=== PATIENT | female | born 1995 | race Caucasian/White ===

== ENCOUNTER 2017-04-18 09:52 | Emergency (ER) | payer OTHER, SELFPAY ==
[2017-04-18 09:53] VITALS: BP 156/79; PULSE 106; RESP 15; TEMP 36.3; O2SAT 97; BMI 36.3
[2017-04-18] MEDS: Ondansetron 4 MG/2 ML Vial IV (10:48)
[2017-04-18] MEDS: 0.9% Normal Saline 1,000 ML 1000 ML IV (10:48)
[2017-04-18 10:51] LABS: Absolute Lymphocyte Count 1.21 X10^3/ul (0.83-4.51); Absolute Neutrophil Count 6.5 X10^3/uL (2.0-7.7); Basophil# 0.01 X10^3/uL; Basophil% 0.1 % (0-1); Eosinophil# 0.02 X10^3/uL; Eosinophils% 0.2 % (0-5); Hematocrit 38.1 % (37-47); Hemoglobin 12.8 g/dl (12.0-15.0); Lymphocyte # 1.21 X10^3/ul (4.0); Lymphocyte % 14.6 % (19-41); Mean Corp Hgb Conc 33.6 g/gl (32-36); Mean Corpuscular Volume 86.4 fL (81-99); Mean Platelet Vol. 9.7 fl (6.2-12.0); Monocyte# 0.55 X10^3/uL; Monocyte% 6.7 % (0-10); Neutrophil # 6.45 X10^3/uL (2.7-7.7); Neutrophil % 78.2 % (47-70); POSITIVE COUNT NO; POSITIVE DIFFERENTIAL NO; POSITIVE MORPHOLOGY NO; Platelet Count 221 K/mm3 (150-450); RBC Distribution Width CV 12.9 % (11.6-14.6); RBC Distribution Width SD 40.9 fl (35.1-43.9); Red Blood Count 4.41 M/mm3 (4.2-5.4); White Blood Count 8.3 K/mm3 (4.4-11.0)
[2017-04-18 11:02] LABS: Anion Gap 9 (5-15); BUN 8 mg/dL (7-18); BUN/Creat Ratio 17.9 RATIO (10-20); Calcium,Total 8.2 mg/dL (8.5-10.1); Chloride 109 mmol/L (98-107); Creatinine, Serum 0.45 mg/dL (0.55-1.02); EST Glomerular Filtration Rate 185 mL/min (>60); Est Glom Filt Rate - Afr Amer 224 mL/min (>60); Estimated Creatinine Clearance 190.69 ml/min; Glucose 82 mg/dL (70-110); Potassium 3.6 mmol/L (3.5-5.1); Sodium Level 140 mmol/L (136-145)
[2017-04-18 12:46] LABS: Mucous, Urine 0 SEEN /hpf (<or=2+); Red Blood Cells-Urine 0 SEEN /hpf (0-5)
[2017-04-18 12:53] LABS: Color, Urine Yellow (Yellow); Glucose, Dipstick Normal (Normal); Leukocyte Esterase-Dipstick 25 /ul (Negative); Nitrite-Dipstick Negative (Negative); Occult Blood-Urine Negative /ul (Negative); Protein-Dipstick Negative (Negative); Specific Gravity, Urine 1.015 (1.002-1.030); Urine Bilirubin Dipstick Negative (Negative); Urine Clarity Sl. Cloudy (Clear); Urine Urobilinogen Normal (Normal)
[2017-04-18 12:55] LABS: Ketone-Dipstick 150 mg/dl (Negative)
[2017-04-18 12:58] LABS: Bacteria 1+ /hpf (None Seen); Squamous Epithelial Cells - UA 0-5 SEEN /hpf (5-10); White Blood Cells 0-5 SEEN /hpf (0-5)
[2017-04-18] MEDS: 0.9% Normal Saline 1,000 ML 999 ML IV (13:00)
--- NOTE | 2017-04-18 13:19 | ED.VISSUMM ---
- ER Visit Summary Date of Service: 04/18/17 Chief Complaint: Vomiting and diarrhea History of Present Illness: The patient is a 21 F [facility] and does not have a primary care physician. She is a 20 weeks . She reports that she has vomiting and diarrhea that began 2 days ago. She has vomited a total of 7 times without blood. She has had 9 episodes of diarrhea without blood. She has cramping diffuse abdominal pain is 510 at worst and she is pain-free currently. It is worsened by water and relieved by vomiting. She denies any dysuria or frequency. Patient denies sick contacts. Has not been camping out of the country. No possible bad food exposure. Does not drink well water. On amoxicillin approximate 1 month ago for a sinus infection. Physical Examination: Vitals: Stable. Afebrile. General: Well-nourished and well-developed. Head: Normocephalic atraumatic. Neck: Supple, no lymphadenopathy. No JVD. Nontender. Cardiovascular: Regular rate and rhythm. No murmurs. Respiratory: No respiratory distress. Clear to auscultation bilaterally. Abdominal: Soft, nontender, nondistended, normal bowel sounds. No guarding, rebound, or peritoneal signs. Back: Nontender. Extremities: Nontender, no edema. Skin: Normal color, no rash. Neurologic: Alert and oriented ?3. Cranial nerves II through XII are intact. Normal strength and sensation. Psych: Normal affect. Test Results: CBC is marked for segment neutrophils 70 lymphocytes of 15. Chem-7 is more for chloride 109, calcium 8.2, creatinine 0.45. UA is negative. Emergency Department Course and Treatment: heart tones were 155. Patient was treated Zofran IV. She has had no further vomiting or diarrhea while here. She was unable to give a stool sample. Treatment Plan: She will be discharged with Zofran. Instructed from Dr. Cox in 1 to days if not improving. Return to the emergency department for any worsening symptoms. Disposition: To home in improved and stable condition. Impression: 1. Vomiting/diarrhea. 2. Second trimester . This note was generated with [employer] software. It may contain incorrect words, spelling, and punctuation that were not noted in review of the chart prior to signing ED Disposition - Plan for ED Patient: Disposition: Home or Assisted Living Chief Complaint: Diarrhea Instructions: ED Vomiting Diarrhea Nonspecific Ad Prescriptions: Ondansetron [Zofran Odt] 4 mg PO Q8H PRN PRN #10 tablet PRN Reason: Nausea Referrals: Ulises Melgoza MD [STAFF PHYSICIAN] - 1-2 Days if not improving
[2017-04-18 13:52] VITALS: BP 148/86
== END 2017-04-18 13:54 | disposition home or self-care (01) ==
PROVIDERS: Emergency Provider Emergency Medicine
DX: O21.2 Late vomiting of pregnancy (principal); O26.892 Other specified pregnancy related conditions, second trimester; R10.84 Generalized abdominal pain; R19.7 Diarrhea, unspecified; R51 Headache; Z3A.20 20 weeks gestation of pregnancy
CPT/HCPCS: 36415; 80048; 81001; 85025; 96361; 96374; 99283; J7050; A4216; J2405

== ENCOUNTER 2017-06-04 04:35 | Outpatient (CLI) | payer OTHER, SELFPAY ==
[2017-06-04 04:55] VITALS: BMI 38.7
--- NOTE | 2017-06-06 12:40 | OB.TRI.HP_ITS ---
History of Present Illness Date of Service: 06/04/17 Was patient seen by the physician?: No Reason For Visit: R/O LABOR Date of Service: 06/04/17 Final PACO: 09/04/17 Gestational age: 27 Weeks and 1 Days History of Present Illness: Patient presents to triage @ 27.1 wks reporting irregular uterine-like cramping a few times an hour. Denies vaginal bleeding, denies vaginal discharge. Reports +FM. Patient concerned she may be in PTL. Home Medications Medication Instructions Recorded Ondansetron [Zofran Odt] 4 mg PO Q8H PRN PRN #10 tablet 04/18/17 Vits [Prenatabs FA] 1 tablet PO DAILY 04/18/17 Allergies No Known Allergies Allergy (Verified 04/18/17 09:56) - Pertinent Past Medical History Pertinent Past Medical History: Exercise Induced Asthma - no inhaler use is > 2 years History of Anxiety Physical Exam Vitals: See Nursing note and Exam NST - FHR Rate Baby A Baseline: 140 Variability:: Moderate Accelerations:: 10 x 10 Decelerations:: None NST Reactive:: Yes, Appropriate for gestational age FHR Category:: Category I Uterine Activity:: No contractions noted on tocometer Impression/Plan A: 21 y/o @ 27.1 weeks, False Labor, Otero Campuzano Contractions, Category I FHT P: 1) Discharge patient to home with PTL precautions 2) Patient to f/u at [facility] as scheduled. Echo Pleitez CNM
== END 2017-06-04 05:35 | disposition home or self-care (01) ==
LOC: WPOUT 04:41 → WP 04:41
PROVIDERS: Visit Provider Obstetrics & Gynecology
DX: O47.02 False labor before 37 completed weeks of gestation, second trimester (principal); Z3A.27 27 weeks gestation of pregnancy; O99.342 Other mental disorders complicating pregnancy, second trimester; F41.9 Anxiety disorder, unspecified; J45.990 Exercise induced bronchospasm
CPT/HCPCS: 59050; 99218; G0378

== ENCOUNTER 2017-08-19 11:02 | Outpatient (CLI) | payer OTHER, SELFPAY ==
--- NOTE | 2017-08-19 11:02 | DT_ITS ---
This patient was seen during an EMR downtime August 19, 2017 - August 26, 2017. This patient may have a combination of paper and electronic documentation or all paper documentation. All documentation is viewable within the e-chart portion of [employer] for each patient visit.
== END 2017-08-19 14:10 | disposition home or self-care (01) ==
LOC: WPOUT 08-21 08:04
PROVIDERS: Visit Provider Obstetrics & Gynecology
DX: Z34.03 Encounter for supervision of normal first pregnancy, third trimester (principal); Z3A.37 37 weeks gestation of pregnancy; R03.0 Elevated blood-pressure reading, without diagnosis of hypertension
CPT/HCPCS: 36415; 59025; 59050; 99218; G0378

== ENCOUNTER 2017-08-21 10:50 | Inpatient (IN) | payer BC, OTHER, SELFPAY ==
--- NOTE | 2017-08-21 10:50 | DT_ITS ---
This patient was seen during an EMR downtime August 19, 2017 - August 26, 2017. This patient may have a combination of paper and electronic documentation or all paper documentation. All documentation is viewable within the e-chart portion of [employer] for each patient visit.
[2017-08-22 11:37] LABS: ALB/GLOB Ratio 0.5 RATIO (0.9-2.4); AST(SGOT) 19 U/L (15-37); Albumin, Serum 2.4 g/dL (3.2-5.0); BUN 10 mg/dL (7-18); BUN/Creat Ratio 13.2 RATIO (10-20); Calcium,Total 8.7 mg/dL (8.5-10.1); Creatinine, Serum 0.76 mg/dL (0.55-1.02); EST Glomerular Filtration Rate 100 mL/min (>60); Est Glom Filt Rate - Afr Amer 121 mL/min (>60); Globulin 4.4 g/dL (2.2-4.2); Glucose 81 mg/dL (74-106); Protein, Total 6.8 g/dL (6.4-8.2)
[2017-08-22 11:38] LABS: Alanine Aminotransfer ALT/SGPT 16 U/L (13-56); Alkaline Phosphatase 193 U/L (45-117); Anion Gap 9 (5-15); Chloride 110 mmol/L (98-107); Potassium 3.5 mmol/L (3.5-5.1); Protein, Urine (Random) 11.4 mg/dL (<11.9); Protein:Creat Ratio 140 mg/g CRE (0-200); Sodium Level 139 mmol/L (136-145)
[2017-08-22 16:17] LABS: Absolute Lymphocyte Count 2.46 X10^3/ul (0.83-4.51); Absolute Neutrophil Count 7.8 X10^3/uL (2.0-7.7); Basophil# 0.02 X10^3/uL; Basophil% 0.2 % (0-1); Eosinophil# 0.11 X10^3/uL; Hematocrit 36.6 % (37-47); Hemoglobin 12.4 g/dl (12.0-15.0); Lymphocyte # 2.46 X10^3/ul (4.0); Lymphocyte % 21.6 % (19-41); Mean Corp Hgb Conc 33.9 g/gl (32-36); Mean Corpuscular Hgb 29.8 pg (27.0-32.0); Mean Platelet Vol. 11.9 fl (6.2-12.0); Monocyte# 1.06 X10^3/uL; Monocyte% 9.3 % (0-10); Neutrophil # 7.76 X10^3/uL (2.7-7.7); Neutrophil % 67.9 % (47-70); POSITIVE COUNT NO; POSITIVE DIFFERENTIAL NO; POSITIVE MORPHOLOGY NO; Platelet Count 225 K/mm3 (150-450); RBC Distribution Width CV 12.7 % (11.6-14.6); RBC Distribution Width SD 39.9 fl (35.1-43.9); Red Blood Count 4.16 M/mm3 (4.2-5.4); White Blood Count 11.4 K/mm3 (4.4-11.0)
[2017-08-22 17:47] LABS: International Normalized Ratio 0.9; Partial Thromboplast Time 24.8 Seconds (24.1-36.2); Prothrombin Time (Protime)PT. 12.5 SECONDS (11.7-14.9)
--- NOTE | 2017-08-22 23:30 | PLAC_PTH ---
PATIENT: GALO DUMONT LOC: [facility] U#:[id number] AGE/SX: 22/F ROOM: WP019 RE08/21/[address]: Dr. Amie Holly MD : [id number] BED: 1 DIS: 08/24/2017 SPEC #: [id number] RECD: 08/23/17 00:53 STATUS: ДМИТРИЙ DEANDRE #: [id number] ALIA: 08/22/17 23:[address]: Amie Holly DEPT: SURGICAL PATHOLOGY RECD BY: Jose Orozco ENTERED: 08/23/17 04:34 SP TYPE: PLACENTA OTHR DR: No Primary Care Phys Tissues: Placenta, NOS Procedures: Surgery Specimen Level V HEADER OPERATION: Not noted PRE-OP DIAGNOSIS: Possible chorio TISSUE SUBMITTED: Placenta MICROSCOPIC DIAGNOSIS Placenta: Placental disc - third trimester placenta (459 gm). Membranes - no pathologic diagnosis. Umbilical cord - three blood vessels and no pathologic diagnosis. SJ:jaron 08/26/17 MICROSCOPIC DESCRIPTION Slides are reviewed. GROSS DESCRIPTION SPECIMEN: PLACENTA / CLINICAL INFORMATION: A. Weight: Unavailable B. Gestational Age: Unavailable C. Sex: Male PLACENTAL WEIGHT (POST FIXATION): 459 gm PLACENTAL DIMENSIONS: 19 x 15 x 2.8 cm PLACENTAL SHAPE: Usual ovoid PLACENTAL WEIGHT FOR GESTATIONAL AGE: Within 10-99th percentile MEMBRANES - Present A. Insertion: Marginal B. Site of rupture from edge: 4 cm from edge of placental disc C. Color of membrane: Rome-ann D. Abnormalities: None UMBILICAL CORD - Present A. Color: Rome-ann B. Insertion: Paracentral C. Length: 50 cm D. Diameter: 1.2 cm E. Number of vessels: Three F. Abnormalities: A few false knots are noted. PLACENTAL DISC - Present A. Color of surface: Rome-ann B. surface abnormalities: None C. Maternal cotyledons: Intact with minimal tears D. Attached retro placental clot: No clot E. Cut surface: Dark red and spongy F. Lesions: None G. Separate clot: Absent SECTIONS SUBMITTED: 1. Membrane roll 2. Cord, maternal end 3. Cord, end 4. Placental disc, and maternal surfaces 5. Placental disc, and maternal surfaces 6. Placental disc, and maternal surfaces SJ:jaron 08/23/17 TC:4 CPT: 96222
[2017-08-24 09:25] LABS: BUN 10 mg/dL (7-18); BUN/Creat Ratio 14.1 RATIO (10-20); Creatinine, Serum 0.71 mg/dL (0.55-1.02); EST Glomerular Filtration Rate 108 mL/min (>60); Est Glom Filt Rate - Afr Amer 131 mL/min (>60); Glucose 77 mg/dL (74-106); Protein, Total 6.5 g/dL (6.4-8.2)
[2017-08-24 09:26] LABS: ALB/GLOB Ratio 0.5 RATIO (0.9-2.4); AST(SGOT) 17 U/L (15-37); Alanine Aminotransfer ALT/SGPT 14 U/L (13-56); Albumin, Serum 2.3 g/dL (3.2-5.0); Alkaline Phosphatase 189 U/L (45-117); Anion Gap 10 (5-15); Calcium,Total 8.5 mg/dL (8.5-10.1); Chloride 111 mmol/L (98-107); Globulin 4.2 g/dL (2.2-4.2); Potassium 3.8 mmol/L (3.5-5.1); Sodium Level 142 mmol/L (136-145)
[2017-08-24 09:42] LABS: Hematocrit 35.7 % (37-47); Hemoglobin 11.9 g/dl (12.0-15.0); Mean Corp Hgb Conc 33.3 g/gl (32-36); Mean Corpuscular Hgb 29.5 pg (27.0-32.0); Mean Corpuscular Volume 88.4 fL (81-99); Mean Platelet Vol. 11.5 fl (6.2-12.0); Platelet Count 227 K/mm3 (150-450); RBC Distribution Width CV 12.6 % (11.6-14.6); RBC Distribution Width SD 39.8 fl (35.1-43.9); Red Blood Count 4.04 M/mm3 (4.2-5.4); Scan Indicated on CBC? Y/N NO
[2017-08-26 16:59] LABS: 24HR. UA Prot. Total Volume 1200 mL; Urine Protein (24 Hour) 19.5 mg/dL (<11.9)
--- NOTE | 2017-09-19 19:31 | PCM.HP.OB ---
History Date of Admission: 08/21/17 Final PACO: 09/04/17 Final PACO Source: US <20 weeks Gestational age: 38w 0d History of this : This is a 22 year-old, 1 para 0 who was admitted on 08/21/2017 for persistently elevated blood pressures. She was seen in the office and have persistently elevated blood pressures and was sent to labor and delivery for evaluation of preeclampsia and induction for gestational hypertension. She denied any headache, visual changes, vaginal bleeding, or leaking of fluid. She had good movement and regular contractions.. Allergies No Known Allergies Allergy (Verified 04/18/17 09:56) Home Medications: Home Medications Ondansetron [Zofran Odt] 4 mg PO Q8H PRN PRN #10 tablet 04/18/17 Vits [Prenatabs FA] 1 tablet PO DAILY 04/18/17 Smoking Status: Never smoker Alcohol: None Number of Fetus(es): 1 History Past Pregnancies: Past Pregnancies Delivery Date Name GA/Weeks Outcome Route Weight Infant Gender Labor Length Anesthesia Delivery Location Provider FOB Review of Systems Constitutional: Denies: Anorexia, Fever Cardiovascular: Reports: Edema. Denies: Chest Pain Respiratory: Denies: Cough, Shortness of Breath Physical Exam General: Alert, Cooperative, No apparent distress Abdomen: Soft, Non Tender, Non-Distended, Gravid, Appropriate for Gestational Age Extremities:: Deep tendon reflexes - 2+, no clonus, Other - edema 1+ Neurological: Cranial nerves II-XII grossly intact Assessment/Plan This is a 22 year-old, @ 38 0/7 weeks for induction due to gestational hypertension. EFW < 4500 gm, pelvis was clinically adequate to expect vaginal delivery May have epidural, NO or nubain prn monitor for symptoms/signs of severe preeclampsia
--- NOTE | 2017-11-15 13:19 | PCM.OB.VAG ---
Vaginal Delivery Maternal Presentation: Medically Indicated Induction Method of Induction: Pitocin, Gupta Bulb, Amniotomy, Cytotec Medical Reason for Induction: Gestational Hypertension Amniotic Membrane Rupture Type: Artificial Final PACO: 09/04/17 Gestational age: 38&2 Date of Procedure: 08/22/17 Pre-Operative Diagnosis: Gestational hypertension Post-Operative Diagnosis: Gestational hypertension Surgery/ Procedure Performed: Spontaneous Vaginal Delivery Description of Procedure: Spontaneous vaginal delivery over intact perineum. Presentation: THIERNO Placental Delivery Description: Expressed Placenta Disposition: [facility] Cord Vessel Description: 3 Vessels (1 minute): 8 (5 minute): 9 Episiotomy Description: None Laceration: Vaginal Extension/lac - repaired with 3-0 vicryl Medications given after delivery: IV Pitocin Complications: None
== END 2017-08-24 15:30 | disposition home or self-care (01) | DRG 774 ==
PROVIDERS: Admitting Provider Obstetrics & Gynecology; Visit Provider Obstetrics & Gynecology
DX: O13.4 Gestational [pregnancy-induced] hypertension without significant proteinuria, complicating childbirth (principal); O75.2 Pyrexia during labor, not elsewhere classified; Z37.0 Single live birth; O70.0 First degree perineal laceration during delivery; Z3A.38 38 weeks gestation of pregnancy
CPT/HCPCS: 59025; 59050; 80053; 82570; 84156; 84550; 85025; 85027; 85610; 85730; 86850; 86900; 88307; 99218; J7120; A4216; G0378

== ENCOUNTER → 2017-12-24 10:53 | Outpatient (CLI) | payer BC, OTHER, SELFPAY ==
--- NOTE | 2017-12-24 10:59 | VDLE_ITS ---
Reason For Study: RLE Pain RIGHT LEFT GSV is normal. CFV is compressible, spontaneous, phasic, CFV is compressible, spontaneous, phasic, competent, and demonstrates normal competent and demonstrates normal augmentation. augmentation. FV is compressible, spontaneous, phasic, competent and demonstrates normal augmentation. POP V is compressible, spontaneous, phasic, competent and demonstrates normal augmentation. T/P Trunk is compressible. PTV is compressible. RT PerV is compressible. Procedure Exam performed in department. A preliminary report was called and/or faxed to [facility]. Interpretation Summary Deep veins of the right lower extremity are patent and compressible segmentally. There is no evidence of right lower extremity deep vein thrombosis. Valvular competence appears intact within the proximal deep venous system on the right . The right greater saphenous vein appears patent and compressible segmentally. Ordering Physician: Carla Santamaria Performed By: Heena Fay RVT and Student
== END ==
PROVIDERS: Referring Provider Nurse Practitioner Adult Health; Visit Provider Nurse Practitioner Adult Health
DX: M79.604 Pain in right leg (principal)
CPT/HCPCS: 93971

== ENCOUNTER 2018-10-27 11:34 | Emergency (ER) | payer BC, OTHER, SELFPAY ==
[2018-10-27 11:34] VITALS: BMI 36.3
[2018-10-27 11:35] VITALS: BP 143/85; PULSE 84; RESP 18; TEMP 36.3; O2SAT 100; BMI 31.3
--- NOTE | 2018-10-27 11:43 | NURSING ---
NO OLD EKGS
--- NOTE | 2018-10-27 11:51 | EKG12_ITS ---
Test Reason : CP Blood Pressure : / mmHG Vent. Rate : 078 BPM Atrial Rate : 078 BPM P-R Int : 142 ms QRS Dur : 112 ms QT Int : 382 ms P-R-T Axes : 009 023 013 degrees QTc Int : 435 ms Normal sinus rhythm Incomplete right bundle branch block Borderline ECG Confirmed by PRACHI GARCIA, TIM ([id number]), index editor LISA PARKER ([id number]) on 10/29/2018 8:55:06 AM Referred By: JACQUELINE/JULIETA Confirmed By:TIM VELARDE MD
--- NOTE | 2018-10-27 11:52 | RAD_ITS ---
STUDY: X-RAY CHEST REASON FOR EXAM: Female, 23 years old. Chest pain. Hypertension. The patient is 10 weeks . The patient is shielded appropriately. TECHNIQUE: PA and lateral views of the chest. COMPARISON: None. FINDINGS: EKG electrodes are seen. The lungs are clear and expanded. There is no demonstrated pleural abnormality. Normal size heart. Normal mediastinum and eze. Normal visualized pulmonary arteries. Normal visualized aortic arch and descending thoracic aorta. Normal visualized thoracic spine. Normal visualized ribs, clavicles, and shoulders. There is no demonstrated abnormality of the visualized soft tissue structures of the upper abdomen. RAD/Chest PA and Lateral IMPRESSION: Normal x-ray examination of the chest. Electronically Signed: Sherman Kramer, at 13:18 EDT , Service support ,
--- NOTE | 2018-10-27 11:53 | ED.VIS.GEN ---
History of Present Illness Chief Complaint: Chest Pain Informant: Patient Onset: Days Context: Gradual Onset Timing: Intermittent Current Severity: Mild Maximum Severity: Moderate Narrative: The patient presents to the emergency department with substernal chest pain. The patient is otherwise healthy. She is at approximately 10 weeks gestation. She states over the past 2 days, she has had intermittent in, she has had substernal chest heaviness. She states when she gets the pain, she will feel short of breath. Is not constant. She denies any pleuritic pain. The pain does not radiate. She states that she has had this before when her blood pressure was high. She did have history of hypertension during her last , but after delivery she did not require any medications. She has no history of pulmonary embolus. She denies any trauma. Prior similar symptoms: No Recent Illness/Hospitalization: No Past Medical History - Allergies and Home Meds Allergies/Adverse Reactions: Allergies No Known Allergies Allergy (Verified 10/27/18 11:38) Primary Care Physician: Barbara Guerra [STAFF PHYSICIAN] - Prior records reviewed: Yes Past Medical History: None Lives: With Family Smoking Status: Never smoker Review of Systems General: Denies: Chills, Fever, Sweats Eyes: Denies: Visual changes - bilaterally, Diplopia ENT: Denies: Rhinorrhea, Sore throat Cardiovascular: Reports: Chest pain Respiratory: Reports: Dyspnea Gastrointestinal: Denies: Abdominal pain, Nausea, Vomiting, Diarrhea, Melena, Hematochezia Genitourinary: Denies: Dysuria, Hematuria, Frequency Musculoskeletal: Denies: Back pain, Extremity Pain Skin: Denies: Rash, Wounds Neurological: Denies: Headache, Weakness, Numbness Physical Exam Vital Signs/Narrative: Vital Signs Temp Pulse Resp BP Pulse Ox 10/27/18 11:35 97.4 F L 84 18 143/85 H 100 Inital Vital Signs reviewed: Yes General: Well nourished, Well developed, No Acute Distress Head: Normocephalic, Atraumatic Eyes: Perrl, EOMI ENT: Moist mucous membranes, No rhinorrhea Neck: Supple, Nontender Cardiovascular: Regular rate, Regular rhythm, No murmurs Respiratory: No distress, CTA bilaterally, Chest nontender Abdomen: Soft, Nontender, Nondistended, Normal bowel sounds Back: Nontender, Normal Inspection Extremities: Nontender, No edema Skin: Normal color, No rash Neurological: Alert, Oriented x3, Cranial nerves II-XII grossly intact, Normal Strength, Normal Sensation Psychological: Normal affect, Normal Mood Diagnostic/Tx/Re-eval Chest X-Ray - ED: 2 View, Read by ED Physician, Normal, Lungs, Mediastinum - Rhythm Strip Rhythm Strip: Sinus Rhythm Ectopy: None - EKG Initial EKG Interpretation: Sinus Rhythm, No Acute Injury Pattern Prior: Unchanged - Medical Decision Making The patient is and presents to the emergency department substernal chest pain that is since resolved. EKG was obtained was unremarkable. There was no evidence of right ventricular strain. Chest x-ray was also unremarkable. The patient did have similar symptoms before in her prior when she was hypertensive. She does have very mild hypertension here, but given the point of her my suspicion for preeclampsia is very low. She is not tachycardic or hypoxic. She has no pleuritic pain. She has no leg edema. I do not feel this represents pulmonary embolus. I did discuss the care with Dr. Todd. At this point, the patient will be discharged to follow-up with OB. Impression 1. Chest pain ED Disposition - Plan for ED Patient: Disposition: Home or Assisted Living Instructions: CHEST PAIN, NonCardiac Referrals: Barbara Guerra [STAFF PHYSICIAN] -
[2018-10-27 12:47] VITALS: O2SAT 98
[2018-10-27 13:01] LABS: Anion Gap 7 (5-15); BUN 9 mg/dL (7-18); BUN/Creat Ratio 14.1 RATIO (10-20); Chloride 108 mmol/L (98-107); Creatinine, Serum 0.64 mg/dL (0.55-1.02); EST Glomerular Filtration Rate 121 mL/min (>60); Est Glom Filt Rate - Afr Amer 146 mL/min (>60); Estimated Creatinine Clearance 131.81 ml/min; Glucose 79 mg/dL (74-106); Potassium 3.4 mmol/L (3.5-5.1); Sodium Level 139 mmol/L (136-145)
[2018-10-27] MEDS: 0.9% Normal Saline 1,000 ML 150 ML IV (13:01)
[2018-10-27 13:25] VITALS: PULSE 75; RESP 18; O2SAT 98
[2018-10-27 14:23] LABS: Absolute Lymphocyte Count 3.02 X10^3/uL (0.83-4.51); Absolute Neutrophil Count 5.8 X10^3/uL (2.0-7.7); Basophil# 0.05 X10^3/uL; Basophil% 0.5 % (0-1); Eosinophil# 0.11 X10^3/uL; Eosinophils% 1.1 % (0-5); Hematocrit 42.3 % (37-47); Hemoglobin 14.1 g/dL (12.0-15.0); Lymphocyte # 3.02 X10^3/ul (4.0); Lymphocyte % 31.2 % (19-41); Mean Corp Hgb Conc 33.3 g/dL (32-36); Mean Corpuscular Hgb 28.9 pg (27.0-32.0); Mean Corpuscular Volume 86.7 fL (81-99); Mean Platelet Vol. 9.9 fl (6.2-12.0); Monocyte# 0.66 X10^3/uL; Monocyte% 6.8 % (0-10); NRBC Flagged by Analyzer 0 % (0-5); Neutrophil % 60.1 % (47-70); Platelet Count 289 K/mm3 (150-450); RBC Distribution Width CV 12.7 % (11.6-14.6); Red Blood Count 4.88 M/mm3 (4.2-5.4); White Blood Count 9.7 K/mm3 (4.4-11.0)
== END 2018-10-27 14:53 | disposition home or self-care (01) ==
LOC: ED 12:06
PROVIDERS: Emergency Provider Emergency Medicine
DX: O26.891 Other specified pregnancy related conditions, first trimester (principal); R07.2 Precordial pain; O16.1 Unspecified maternal hypertension, first trimester; Z3A.10 10 weeks gestation of pregnancy
CPT/HCPCS: 71046; 80048; 84484; 85025; 93005; 96360; 96361; 99285; J7030; A4216

== ENCOUNTER 2019-05-09 12:30 | Outpatient (CLI) | payer BC, OTHER, SELFPAY ==
[2019-05-09 12:53] VITALS: BMI 40.1
--- NOTE | 2019-05-09 13:03 | OB.TRI.NOTE ---
- Problem List (1) 36 weeks gestation of Status: Acute (2) Elevated blood pressure reading Status: Acute History of Present Illness Date of Service: 05/09/19 Was patient seen by the physician?: Yes Reason For Visit: RULE OUT PRE E Date of Service: 05/09/19 Final PACO: 06/03/19 Final PACO Source: US <20 weeks Gestational age: 36 Weeks and 3 Days History of Present Illness: Patient called in with elevated blood pressures at home. She states she was checking her blood pressures at home and had several mild range blood pressures in 1 severe range blood pressure with a diastolic of 115. She denied any symptoms. History of gestational hypertension. Allergies No Known Allergies Allergy (Verified 05/09/19 12:52) Review of Systems Eyes: Denies: Blurred vision, Vision Change HEENT: Denies: Head Aches Gastrointestinal: Denies: Abdominal Pain, Nausea, Vomiting Physical Exam General: Alert, No apparent distress HEENT: Atraumatic Abdomen: Soft, Non Tender, Gravid Extremities:: No edema Neurological: Deep Tendon Reflexes 2+/4 and Symmetrical, Neuro grossly intact NST - FHR Rate Baby A Baseline: 120 Variability:: Moderate Accelerations:: 15 x 15 Decelerations:: None NST Reactive:: Yes FHR Category:: Category I Uterine Activity:: Occasional irregular ctx's Impression/Plan Patient presents from home with elevated blood pressure readings. History of gestational hypertension. She reported several mild range blood pressures, and one severe range blood pressure. - Rule out pre-e - No pre-e symptoms today - Serial BP's - Will send pre-e labs - Initial BP normotensive - If BP's continue to be normal, and labs return as normal okay to d/c home with follow up in the office
[2019-05-09 13:18] LABS: Hemoglobin 11.7 g/dL (12.0-15.0); Mean Corp Hgb Conc 32.5 g/dL (32-36); Mean Corpuscular Volume 86.1 fL (81-99); Mean Platelet Vol. 10.8 fl (6.2-12.0); Platelet Count 235 K/mm3 (150-450); RBC Distribution Width CV 12.6 % (11.6-14.6); Red Blood Count 4.18 M/mm3 (4.2-5.4); White Blood Count 10.3 K/mm3 (4.4-11.0)
[2019-05-09 13:30] LABS: Prothrombin Time (Protime)PT. 12.4 SECONDS (11.7-14.9)
[2019-05-09 13:31] LABS: Partial Thromboplast Time 24.7 Seconds (24.1-36.2)
[2019-05-09 13:34] LABS: AST(SGOT) 16 U/L (15-37); Alanine Aminotransfer ALT/SGPT 16 U/L (13-56); Creatinine, Serum 0.59 mg/dL (0.55-1.02); EST Glomerular Filtration Rate 132 mL/min (>60); Est Glom Filt Rate - Afr Amer 160 mL/min (>60); Estimated Creatinine Clearance 142.98 ml/min; Uric Acid 4.9 mg/dL (2.6-6.0)
[2019-05-09 13:45] LABS: Protein, Urine (Random) 20.7 mg/dL (<11.9); Protein:Creat Ratio 154 mg/g CRE (0-200)
== END 2019-05-09 14:10 | disposition home or self-care (01) ==
LOC: WPOUT 12:38 → WP 12:43
PROVIDERS: Visit Provider Obstetrics & Gynecology
DX: O99.89 Other specified diseases and conditions complicating pregnancy, childbirth and the puerperium (principal); R03.0 Elevated blood-pressure reading, without diagnosis of hypertension; Z3A.36 36 weeks gestation of pregnancy; Z87.59 Personal history of other complications of pregnancy, childbirth and the puerperium
CPT/HCPCS: 59025; 59050; 82565; 82570; 84156; 84450; 84460; 84550; 85027; 85610; 85730; 99218; G0378

== ENCOUNTER 2019-05-13 07:10 | Inpatient (IN) | payer BC, OTHER, SELFPAY ==
[2019-05-13] VITALS (51 sets, daily range): BP systolic 90–129; BP diastolic 50–91; PULSE 71–118; RESP 18; TEMP 36.5; O2SAT 92–100; BMI 39.7
[2019-05-13] MEDS: Lactated Ringers 1,000 ML 50 ML IV (07:35)
[2019-05-13] MEDS: Oxytocin 30 units/NS 500 ml 30 UNITS/500 ML IV.SOLN IV (08:03)
[2019-05-13] MEDS: 0.9% Normal Saline Single 100 ML IV.SOLN. IY (08:05)
[2019-05-13 08:15] LABS: Absolute Lymphocyte Count 3.04 X10^3/uL (0.83-4.51); Basophil# 0.03 X10^3/uL; Basophil% 0.3 % (0-1); Eosinophil# 0.07 X10^3/uL; Eosinophils% 0.8 % (0-5); Hematocrit 36.5 % (37-47); Hemoglobin 11.8 g/dL (12.0-15.0); Lymphocyte # 3.04 X10^3/ul (4.0); Mean Corp Hgb Conc 32.3 g/dL (32-36); Mean Corpuscular Hgb 27.8 pg (27.0-32.0); Mean Corpuscular Volume 85.9 fL (81-99); Mean Platelet Vol. 11.2 fl (6.2-12.0); Monocyte# 0.76 X10^3/uL; Monocyte% 8.5 % (0-10); NRBC Flagged by Analyzer 0 % (0-5); Neutrophil # 4.96 X10^3/uL (2.7-7.7); Neutrophil % 55.5 % (47-70); Platelet Count 246 K/mm3 (150-450); RBC Distribution Width CV 12.5 % (11.6-14.6); RBC Distribution Width SD 38.6 fl (35.1-43.9); Red Blood Count 4.25 M/mm3 (4.2-5.4); White Blood Count 8.9 K/mm3 (4.4-11.0)
--- NOTE | 2019-05-13 08:22 | PCM.HP.OB ---
History Date of Admission: 08/21/17 Final PACO: 06/03/19 Final PACO Source: US <20 weeks Gestational age: 37 Weeks and 0 Days History of this : This is a 23 year-old, @ 37 weeks, Gest HTN here for IOL . Denies CP, SOB, dizziness, MALLOY, blurry vision. Allergies No Known Allergies Allergy (Verified 05/13/19 07:39) Home Medications: Home Medications Aspirin [Aspir 81] 05/09/19 Vits [Prenatabs FA] 1 tab PO DAILY 05/13/19 Smoking Status: Never smoker Alcohol: None Number of Fetus(es): 1 NST - FHR Rate Baby A Baseline: 130 Variability:: Moderate Accelerations:: 15 x 15 Decelerations:: None NST Reactive:: Yes FHR Category:: Category I Uterine Activity:: irregular History Past Pregnancies: Past Pregnancies Delivery Date Name GA/ Weeks Outcome Route Wt Sex Labor Length Anesthesia Delivery Location Provider FOB Expected Delivery Method: Spontaneous Vaginal Review of Systems Constitutional: Denies: Anorexia Eyes: Denies: Blurred vision, Vision Change HEENT: Denies: Difficulty Hearing, Head Aches Physical Exam General: Alert, Oriented x3 Abdomen: Soft, Non Tender, Gravid Neurological: Cranial nerves II-XII grossly intact [employer] SU[employer]OR: Normal external genitalia Estimated gestational size: Appropriate for gestational size Presentation: Cephalic Cervix Dilation (cm): 1.5 Station: -2 Effacement (%): 60 Assessment/Plan All Active Problems 36 weeks gestation of (Acute) Elevated blood pressure reading (Acute) This is a 23 year-old, at 37 weeks gestational age Gest HTN here for IOL 1) admit to L&D 2) monitor FHR toco 3) anticipate 4) Gupta/Pit started 5) epidural if requested 6) monitor VS
--- NOTE | 2019-05-13 12:15 | PCM.PN.BLA ---
Progress Note pt examined- AROM performed. clear fluid. Continue Pitocin. FHR tracing reviewed.
[2019-05-13] MEDS: Lactated Ringers 500 ML 999 ML IV ×2 (13:00→15:39)
[2019-05-13] MEDS: fentaNYL-bupivacaine (epidural) 100 ML BAG EPIDURAL (14:24)
[2019-05-13] MEDS: Lactated Ringers 1,000 ML 200 ML IV (17:52)
[2019-05-13] MEDS: Oxytocin 30 units/NS 500 ml 30 UNITS/500 ML IV.SOLN 334 UNITS IV (18:43)
--- NOTE | 2019-05-13 18:55 | PCM.OPRPT ---
Vaginal Delivery Maternal Presentation: Medically Indicated Induction Method of Induction: Pitocin, Gupta Bulb, Amniotomy Medical Reason for Induction: Gestational Hypertension Amniotic Membrane Rupture Type: Artificial Amniotic Fluid Description: Clear Final PACO: 06/03/19 Gestational age: 37 Weeks and 0 Days Date of Procedure: 05/13/19 Pre-Operative Diagnosis: gestational HTN, term gestation Post-Operative Diagnosis: same, live female born Surgery/ Procedure Performed: Spontaneous Vaginal Delivery Type of Anesthesia: Epidural Description of Procedure: of live female born without complication. Nuchal x 1 reduced, gentle downward traction placed with good maternal pushing efforts and anterior shoulder delivered without complication followed by rest of infants body. That was placed on the mother's chest for immediate skin the skin. Delayed cord clamping was performed. At this time then the placenta was delivered without difficulty and intact. Perineum and vagina were intact. Presentation: Vertex Placental Delivery Description: Spontaneous Placenta Disposition: [facility] Cord Vessel Description: 3 Vessels Nuchal Cord Compression: With compression Cord Entanglement: Around neck x 1, loose Drain: Gupta to straight drain Estimated Blood Loss: 100 Infant A gender: Female (1 minute): 8 (5 minute): 9 Episiotomy Description: None Laceration: None Medications given after delivery: IV Pitocin Complications: None
[2019-05-13] MEDS: Acetaminophen 500 MG Tablet 1000 MG PO (21:43)
[2019-05-14] VITALS (10 sets, daily range): BP systolic 115–123; BP diastolic 67–84; PULSE 75–96; RESP 16–18; TEMP 36.4–36.7; O2SAT 97
[2019-05-14] MEDS: Ibuprofen 600 MG Tablet PO ×3 (04:50→18:13)
--- NOTE | 2019-05-14 09:49 | PCM.PN.OB ---
Subjective: Patient seen at bedside, doing well. Patient reports good pain control. Mild lochia. Voiding without difficulty. Breast-feeding without difficulty. Any headaches or visual changes. Patient requesting DC home today. - Physical Exam Vitals/I&O's: Vital Signs Temp Pulse Resp BP 97.7 F L 75 16 115/69 05/14/19 08:00 05/14/19 08:00 05/14/19 08:00 05/14/19 08:00 Oxygen Delivery Method Room Air Weight: 115.212 kg Body Mass Index (BMI) 39.7 Intake and Output for Last 24 Hours 05/12/19 05/13/19 05/14/19 23:59 23:59 23:59 Intake Total 3522.20 / 3522.20 Output Total 1400 / 1400 400 / 400 Balance 212. / 2121.20 -400 / -400 General: Alert, Oriented x3 Abdomen: Soft, Non Tender, Non-Distended, - - fundus firm Extremities: No Calf Tenderness Laboratory Results 05/13/19 07:35: Blood Type O POSITIVE, Antibody Screen NEGATIVE Current Medications Acetaminophen (Tylenol) 1,000 mg PO Q8H PRN PRN PRN Reason: Pain Score 1-3/10 Last Admin: 05/13/19 21:43 Dose: 1,000 mg Documented by: Bisacodyl (Dulcolax) 10 mg RECTAL UD PRN PRN Reason: If no BM Dibucaine (Dibucaine) 1 applic TOPICAL TID PRN PRN; Protocol PRN Reason: Discomfort Hydrocortisone (Hytone) 1 applic TOPICAL TID PRN PRN; Protocol PRN Reason: Discomfort Ibuprofen (Motrin) 600 mg PO Q6H PRN PRN PRN Reason: Pain Score 1-3/10 Last Admin: 05/14/19 04:50 Dose: 600 mg Documented by: Methylergonovine Maleate (Methergine) 0.2 mg IM X1 PRN PRN Reason: Excess bleeding/uterine atony Ondansetron HCl (Zofran) 4 mg IV Q4H PRN PRN PRN Reason: Nausea Oxycodone HCl (Oxyir) 5 - 10 mg PO Q4H PRN PRN PRN Reason: Pain Score 4-10/10 Senna/Docusate Sodium (Senokot-S, Caro-Colace) 1 - 2 tablet PO DAILY PRN PRN PRN Reason: Constipation Simethicone (Mylicon) 80 mg PO PCHS PRN PRN Reason: Indigestion/Stomach pain Sodium Chloride () 5 - 15 ml IV UD PRN PRN Reason: SALINE FLUSH Medical Necessity - Tobacco Use Smoking Status: Never smoker Assessment/Plan All Active Problems 36 weeks gestation of (Acute) Elevated blood pressure reading (Acute) PPD#1, doing well routine care VS stable dc home per patient request
--- NOTE | 2019-05-14 09:53 | DCINST_ITS ---
Discharge Diet: No Restrictions Discharge Activity: Return to Normal Activity, May not drive while taking narcotic pain medications., May Shower May resume sexual activity in: 4-6 weeks Additional Activity Instructions:: Nothing in the vagina for 4-6 weeks. You may return to work/school in 6 weeks. Call your doctor if your incision/area has: Continuous Slow Oozing, Sudden Increased Bleeding, Increased Pain/ Swelling, Increased Redness, Foul Smelling Discharge Additional Instructions: If you experience any of the following, contact your healthcare provider. * Bleeding that soaks a pad every hour for 2 hours * Fever 100.4 or higher * Unrelieved incision or abdominal pain * Swelling, redness, discharge or bleeding from your incision or episiotomy site * Your incision begins to separate * Problems urinating (including inability to urinate or burning while urinating). * Visual changes * Severe headache * Flu-like symptoms * Pain or redness in one of both of your breasts * Pain, warmth, tenderness or swelling in your legs, especially the calf area * Frequent nausea and vomiting * Symptoms of depression or anxiety If you experience any of the following, call 911 or go to the nearest Emergency Room. * Chest pain * Problems breathing * Seizure activity * Partial or complete paralysis of a body part, slurred speech, weakness or drooping of the face, or a sudden inability to walk or hold your balance Allergies/Adverse Reactions: Allergies No Known Allergies Allergy (Verified 05/13/19 07:39) Medications to take at Discharge Vits [Prenatabs FA ] 1 tab PO DAILY 05/13/19 Ibuprofen [Motrin] 600 mg PO Q6H PRN PRN #30 tab 05/14/19 The following prescriptions were given: Ibuprofen [Motrin] 600 mg PO Q6H PRN PRN #30 tab PRN Reason: Pain Score 1-3/10 Transmission Status: Pending to [facility] When: Call to make an appointment with your doctor in 6 weeks. If you had elevated Blood Pressure or 4th degree laceration you will need to be seen in 2 weeks. Primary Care Physician: Care Physician,No Primary [Primary Care Provider] - Test Results: Test results from this visit will be discussed in further detail at your follow- up appointment, if applicable.
== END 2019-05-14 20:15 | disposition home or self-care (01) | DRG 807 ==
PROVIDERS: Admitting Provider Obstetrics & Gynecology; Visit Provider Obstetrics & Gynecology
DX: O13.4 Gestational [pregnancy-induced] hypertension without significant proteinuria, complicating childbirth (principal); Z37.0 Single live birth; O69.1XX0 Labor and delivery complicated by cord around neck, with compression, not applicable or unspecified; Z3A.37 37 weeks gestation of pregnancy; Z79.82 Long term (current) use of aspirin
CPT/HCPCS: 59025; 59050; 85025; 86850; 86900; 86901; 99218; J7120; G0378

== ENCOUNTER 2022-04-23 08:36 | Emergency (ER) | payer BC, SELFPAY ==
[2022-04-23 08:38] VITALS: BP 140/85; PULSE 84; RESP 16; TEMP 36.3; O2SAT 98; BMI 34.4
--- NOTE | 2022-04-23 08:58 | CT_ITS ---
STUDY: CT BRAIN WITHOUT CONTRAST REASON FOR EXAM: Female, 26 years old. Seizure RADIATION DOSAGE (If Supplied By Facility): CTDIvol = ( 44.99 ) mGy, DLP = ( 796.11 ) mGycm TECHNIQUE: Transaxial CT imaging of the brain was performed without administration of intravenous contrast material. Individualized dose optimization techniques were used for this CT. COMPARISON: No relevant priors. FINDINGS: Normal soft tissue structures. Normal calvarium. Normal size ventricles and extra-axial spaces for the patient''s age. Normal white matter tracts of the cerebral hemispheres. Normal basal ganglia and thalami. Normal brainstem. Normal cerebellum. There is no intracranial hemorrhage. There are no findings of an acute ischemic infarction. Normal visualized paranasal sinuses. CT/Brain/Head without Contrast IMPRESSION: Normal unenhanced CT scan of the brain. Electronically Signed: Sherman Kramer MD at 10:12 EST ,
--- NOTE | 2022-04-23 08:59 | EDS_ITS ---
HPI History of Present Illness Chief Complaint: Seizure Informant: patient, spouse/S.O. and family Narrative Narrative: Brought in by private vehicle spouse is present with mother witnessed seizure events occurring around 8 AM this morning. Patient remembers walking up the steps where she twisted her left ankle she yelled for help, spouse came around and saw her come down on the landing onto her back and then a 15-second episode of tonic-clonic contractions. She did not hit her head. Reports remembers her briefly trying to awaken her she remembers rolling onto her abdomen and another 15-second event occurred. Per she was scared upon awakening was slightly confused. Currently back to baseline. No significant pain currently in her ankle. She has sprained her ankle in the past. History of anxiety and depression on medications. Slight headache currently. Prior to that was feeling well. No recent headache or vision changes. Denies any neck or back pain. Patient ambulated in the department. Last menstrual period 3 weeks ago. Denies urinary symptoms. Denies recent vomiting or diarrhea. Mother states no family history of seizures. Denies any incontinence of urine or stools. Rare alcohol use denies recreational drug use. Denies tobacco. Prior similar symptoms: No PFSH PFSH Medical History (Updated 04/23/22 @ 11:[address] Francois Bey DO) Anxiety Depression Home Medications vits,calcium no.78-iron fumarate-folic acid 29 mg-1 mg tablet 1 tab PO DAILY 05/13/19 [History Last Taken 05/11/19 08:00] ibuprofen 600 mg tablet 600 mg PO Q6H PRN PRN Pain Score 1-3/10 #30 tabs 05/14/19 [Rx Last Taken Unknown] fluoxetine 40 mg capsule 40 mg PO DAILY 04/23/22 [History Last Taken Unknown] Allergy/AdvReac Type Severity Reaction Status Date / Time No Known Allergies Allergy Verified 04/23/22 08:40 Social History Smoking Status: Never smoker ROS ROS ED Constitutional Constitutional ED: Denies chills, fever(s) or sweats Eyes Eyes: Denies change in vision ENT ENT ED: Denies dysphagia or sore throat Cardiovascular Cardiovascular: Denies chest pain, leg edema, palpitations or racing heartbeat Respiratory/Chest Respiratory/Chest: Denies cough, dyspnea or dyspnea on exertion Gastrointestinal Gastrointestinal: Denies abdominal pain, diarrhea, nausea or vomiting Genitourinary Genitourinary ED: Denies dysuria, hematuria or urinary frequency Musculoskeletal Musculoskeletal: Denies back pain, extremity pain or neck pain Integumentary Denies rash or wounds Neurologic Neurologic: Reports headache(s) and other Details: Seizure ; Denies paresthesias or weakness EXAM Physical Exam Const Vital Signs: 04/23/22 08:38 04/23/22 09:28 04/23/22 09:28 Temperature 97.4 F L Temperature Source Temporal Pulse Rate 84 84 Respiratory Rate 16 16 Respiratory Pattern Normal Blood Pressure 140/85 H 125/70 H Blood Pressure Mean 103 88 Pulse Ox 98 Oxygen Delivery Method Room Air 04/23/22 10:26 04/23/22 11:31 04/23/22 11:42 Temperature Temperature Source Pulse Rate 78 82 104 H Respiratory Rate 18 16 29 H Respiratory Pattern Blood Pressure 126/77 H 136/86 H 136/86 H Blood Pressure Mean 93 102 Pulse Ox 98 98 Oxygen Delivery Method Room Air Room Air 04/23/22 12:11 Temperature Temperature Source Pulse Rate 91 Respiratory Rate 21 H Respiratory Pattern Blood Pressure 129/82 H Blood Pressure Mean 97 Pulse Ox Oxygen Delivery Method Room Air Positive well nourished and well developed General Appearance ED: well developed and NAD HEENT Reports moist mucous membranes HEENT Narrative: No tongue abrasions. normocephalic and atraumatic Eyes PERRL, EOMs intact bilaterally and conjunctivae normal General Eye ED: Yes normal appearance of both eyes Neck no lymphadenopathy and supple General: Negative for tenderness Chest Wall Chest: Negative for tenderness Resp normal respiratory effort and normal air movement Effort and Inspection: symmetric chest movement; Negative for respiratory distress Cardio regular rate, regular rhythm and no murmurs Peripheral Pulses: pulses 2+ throughout GI normal to inspection, nondistended, normoactive bowel sounds and non-tender Palpation: Negative for guarding or rebound tenderness present Back/Spine no CVA tenderness and no thoracic nor lumbar tenderness Extremity normal to inspection General Extremety ED: Negative for edema or tenderness General Extremity: Negative for edema Neuro oriented x3, CN's II-XII intact bilaterally and no sensory deficits noted Sensorium / Orientation: awake and alert Skin no rashes or lesions noted and no wounds MDM MDM MDM Narrative Medical decision making narrative: Interventions / MDM: Differential diagnosis: New onset seizure versus compulsive syncope Diagnosis considered but do not suspect: N/A My EKG interpretation: N/A Imaging independently reviewed and interpreted by myself: CT brain: No acute process also read by radiology External documents reviewed: N/A Test considered but not ordered: Left ankle x-ray, however clinically nontender able to ambulate, [place] criteria negative ED course: Patient presenting after left ankle injury however witnessed seizure activity x2 that was brief. She has no focal deficits mild headache symptoms. No seizure history no family history of seizures. Work-up was initiated CT brain negative. Labs stable talk screen was negative. Urine noted signs of infection however she is not symptomatic. Urine culture will be sent. Antibiotics if positive. I did have patient evaluated by telemetry neurology, they evaluated, states seizure versus convulsive syncope, they did not recommend antiepileptics at this time. They recommended patient needed to be follow-up within 6 months if not observations admission for work-up. Able to reach out to neurology office Dr. Carlson for appointment August 02 at 0900. Strict return precautions discussed if symptoms recur within 24 hours. Discussed seizure precautions no driving, heavy machinery, swimming or bathing alone, no climbing heights until cleared by neurology. All questions were answered. Re-evaluation: stable and improved Disposition discussed with patient/family/significant other: Patient and family members Case discussed with consulting clinician: Telemetry neurology Lab Data Attestation: I reviewed the patient's lab results. Labs: Laboratory Results - last 24 hr 04/23/22 04/23/22 04/23/22 09:14 09:14 09:14 WBC RBC Hgb Hct MCV MCH MCHC RDW Std Deviation RDW Coeff of Carlos Manuel Plt Count MPV Immature Gran % (Auto) Neut % (Auto) Lymph % (Auto) [place] % (Auto) Eos % (Auto) Baso % (Auto) Absolute Neuts (auto) Absolute Lymphs (auto) Nucleated RBC % Sodium Potassium Chloride Carbon Dioxide Anion Gap BUN Creatinine Estim Creat Clear Calc Est GFR (MDRD) Af Amer Est GFR (MDRD) Non-Af BUN/Creatinine Ratio Glucose Calcium Urine Color Yellow Urine Clarity Sl. Cloudy Urine pH 6.5 Ur Specific [place] 1.015 Urine Protein 15 H Urine Glucose (UA) Normal Urine Ketones Negative Urine Occult Blood Negative Urine Nitrite Negative Urine Bilirubin Negative Urine Urobilinogen Normal Ur Leukocyte Esterase 100 H Urine RBC 0 SEEN Urine WBC 10-25 SEEN Ur Squamous Epith Cells 0-5 SEEN Urine Bacteria 1+ Urine Mucus 0 SEEN Urine Test Negative Urine Opiates Screen NEGATIVE Urine Methadone Screen NEGATIVE Ur Barbiturates Screen NEGATIVE Ur Phencyclidine Scrn NEGATIVE Ur Amphetamines Screen NEGATIVE MDMA (Ecstasy) Screen NEGATIVE U Benzodiazepines Scrn NEGATIVE Urine Cocaine Screen NEGATIVE U Cannabinoids Screen NEGATIVE Ur Drug Screen Comment 04/23/22 04/23/22 09:25 09:25 WBC 7.7 RBC 4.86 Hgb 13.9 Hct 42.6 MCV 87.7 MCH 28.6 MCHC 32.6 RDW Std Deviation 39.0 RDW Coeff of Carlos Manuel 12.1 Plt Count 309 MPV 9.6 Immature Gran % (Auto) 0.400 Neut % (Auto) 61.0 Lymph % (Auto) 29.3 [place] % (Auto) 7.8 Eos % (Auto) 0.9 Baso % (Auto) 0.6 Absolute Neuts (auto) 4.7 Absolute Lymphs (auto) 2.27 Nucleated RBC % 0 Sodium 138 Potassium 4.3 Chloride 108 H Carbon Dioxide 25.0 Anion Gap 5 BUN 15 Creatinine 0.75 Estim Creat Clear Calc 109.57 Est GFR (MDRD) Af Amer 118 Est GFR (MDRD) Non-Af 98 BUN/Creatinine Ratio 19.9 Glucose 101 Calcium 9.0 Urine Color Urine Clarity Urine pH Ur Specific [place] Urine Protein Urine Glucose (UA) Urine Ketones Urine Occult Blood Urine Nitrite Urine Bilirubin Urine Urobilinogen Ur Leukocyte Esterase Urine RBC Urine WBC Ur Squamous Epith Cells Urine Bacteria Urine Mucus Urine Test Urine Opiates Screen Urine Methadone Screen Ur Barbiturates Screen Ur Phencyclidine Scrn Ur Amphetamines Screen MDMA (Ecstasy) Screen U Benzodiazepines Scrn Urine Cocaine Screen U Cannabinoids Screen Ur Drug Screen Comment Radiography Diagnostic Testing: Clinical Impression(s) from Imaging Studies Brain CT 04/23/22 08:58 IMPRESSION: Normal unenhanced CT scan of the brain. Electronically Signed: Sherman Kramer MD at 10:12 EST , Discharge Plan Triage Chief Complaint: Seizure Other Complaint: Syncope ED Provider: Francois Bey Dx/Rx/DC Orders Clinical Impression: Seizure, Convulsive syncope Instructions: ED Fainting, Uncertain Cause, ED Seizure New Onset Unknown ... Prescriptions: No Action vit,[id number] 1 TABLET tablet 1 tab PO DAILY ibuprofen 600 MG tablet 600 mg PO Q6H PRN PRN (Reason: Pain Score 1-3/10) Qty: 30 0RF fluoxetine 40 mg capsule 40 mg PO DAILY Primary Care Provider: Care Physician,No Primary Referrals: Jose Ramon Carlson MD [Non-Staff -Ordering Privileges] - Keep David appointment Care Physician,No Primary [Primary Care Provider] - Activity Restrictions/Additional Instructions: Your work-up is negative today. Urine culture will be reported to you if positive for treatment. You are recommended close outpatient follow-up with work-up for seizure by neurology. Keep appoint with Dr. Carlson August 02 at 9 AM. No driving, heavy machinery, swimming or bathing alone, climbing heights until cleared by neurology. Return if symptoms recur. Disposition Disposition: Home, Self Care Discharge Date/Time: 04/23/22 12:15
[2022-04-23 09:19] LABS: Mucous, Urine 0 SEEN /hpf (<or=2+); Red Blood Cells-Urine 0 SEEN /hpf (0-5)
[2022-04-23 09:24] LABS: Internal QC Validated? YES +Cl - CLEAR BKGD; Pregnancy, Urine Negative Negative
[2022-04-23 09:25] LABS: Color, Urine Yellow (Yellow); Glucose, Dipstick Normal (Normal); Ketone-Dipstick Negative (Negative); Leukocyte Esterase-Dipstick 100 /ul (Negative); Nitrite-Dipstick Negative (Negative); Occult Blood-Urine Negative /ul (Negative); Protein-Dipstick 15 mg/dl (Negative); Specific Gravity, Urine 1.015 (1.002-1.030); Urine Bilirubin Dipstick Negative (Negative); Urine Clarity Sl. Cloudy (Clear); Urine Urobilinogen Normal (Normal); Urine pH 6.5 (5.0 - 8.0)
[2022-04-23 09:28] VITALS: BP 125/70; PULSE 84; RESP 16
[2022-04-23 09:34] LABS: Bacteria 1+ /hpf (None Seen); Squamous Epithelial Cells - UA 0-5 SEEN /hpf (5-10); White Blood Cells 10-25 SEEN /hpf (0-5)
[2022-04-23 09:35] LABS: Absolute Lymphocyte Count 2.27 X10^3/uL (0.83-4.51); Absolute Neutrophil Count 4.7 X10^3/uL (2.0-7.7); Basophil# 0.05 X10^3/uL; Basophil% 0.6 % (0-1); Eosinophil# 0.07 X10^3/uL; Eosinophils% 0.9 % (0-5); Hematocrit 42.6 % (37-47); Hemoglobin 13.9 g/dL (12.0-15.0); Lymphocyte # 2.27 X10^3/ul (0.83-4.51); Lymphocyte % 29.3 % (19-41); Mean Corp Hgb Conc 32.6 g/dL (32-36); Mean Corpuscular Hgb 28.6 pg (27.0-32.0); Mean Corpuscular Volume 87.7 fL (81-99); Mean Platelet Vol. 9.6 fl (6.2-12.0); Monocyte% 7.8 % (0-10); NRBC Flagged by Analyzer 0 % (0-5); Neutrophil # 4.72 X10^3/uL (2.7-7.7); Platelet Count 309 K/mm3 (150-450); RBC Distribution Width CV 12.1 % (11.6-14.6); Red Blood Count 4.86 M/mm3 (4.2-5.4); White Blood Count 7.7 K/mm3 (4.4-11.0)
[2022-04-23 09:39] LABS: Amphetamine Urine VISTA NEGATIVE (<1000 ng/mL); Barbiturate Urine VISTA NEGATIVE (< 200 ng/mL); Benzodiazepine Urine VISTA NEGATIVE (< 200 ng/mL); Cocaine Urine VISTA NEGATIVE (< 300 ng/mL); Ecstacy Urine VISTA NEGATIVE (< 500 ng/mL); Methadone Urine VISTA NEGATIVE (< 300 ng/mL); PCP Urine VISTA NEGATIVE (< 25 ng/mL); THC Urine VISTA NEGATIVE (< 50 ng/mL); Vista UDS pH Range 6
[2022-04-23 09:53] LABS: Anion Gap 5 (5-15); BUN 15 mg/dL (7-18); BUN/Creat Ratio 19.9 RATIO (10-20); Chloride 108 mmol/L (98-107); Creatinine, Serum 0.75 mg/dL (0.55-1.02); EST Glomerular Filtration Rate 98 mL/min (>60); Est Glom Filt Rate - Afr Amer 118 mL/min (>60); Estimated Creatinine Clearance 109.57 ml/min; Glucose 101 mg/dL (74-106); Potassium 4.3 mmol/L (3.5-5.1); Sodium Level 138 mmol/L (136-145)
--- NOTE | 2022-04-23 09:54 | TELEMED_ITS ---
[facility] has confirmed receipt of a request for visit. This document confirms receipt of the order initiating the consult. To find the results of the consultation, please view the patient's reports for the scanned Telemed Consult.
[2022-04-23 10:26] VITALS: BP 126/77; PULSE 78; RESP 18; O2SAT 98
[2022-04-23 11:31] VITALS: BP 136/86; PULSE 82; RESP 16; O2SAT 98
[2022-04-23 11:42] VITALS: BP 136/86; PULSE 104; RESP 29
[2022-04-23] MEDS: Ondansetron 4 MG/2 ML Vial IV (12:05)
[2022-04-23 12:11] VITALS: BP 129/82; PULSE 91; RESP 21
== END 2022-04-23 12:15 | disposition home or self-care (01) ==
PROVIDERS: Emergency Provider Emergency Medicine; Visit Provider Emergency Medicine
DX: R56.9 Unspecified convulsions (principal); R55 Syncope and collapse
CPT/HCPCS: 70450; 80048; 80307; 81001; 81025; 85025; 87086; 87088; 96374; 99285; A4216; J2405

== ENCOUNTER → 2022-06-19 | Outpatient (CLI) | payer BC, SELFPAY ==
--- NOTE | 2022-06-19 10:45 | MRI_ITS ---
STUDY: MRI LEFT ANKLE WITHOUT CONTRAST REASON FOR EXAM: Female, 26 years old. Instability. TECHNIQUE: Standardized fat and water weighted pulse sequences were obtained in all 3 orthogonal planes. COMPARISON: None. FINDINGS: Normal subcutis adipose space. Normal posterior tibialis tendon. Normal flexor digitorum longus tendon. Normal flexor hallucis longus tendon. Normal peroneus longus and brevis tendons. Normal tibialis anterior tendon. Normal extensor hallucis longus tendon. Normal extensor digitorum longus tendons. Normal Achilles tendon and teno-osseous insertion. Minimal pre-Achilles bursitis (sagittal series 10 image 14). Normal plantar fascia. Normal plantar calcaneal tubercles. Normal intrinsic muscles of the rearfoot. Normal distal tibiofibular syndesmotic ligamentous complex. Normal lateral ligamentous complex. Mild subtalar joint arthrosis with cystic changes in the sinus Tarsi (sagittal series 10 images were obtained-18). Normal deltoid ligamentous complexes. Normal plantar calcaneonavicular (spring) ligament. Mild arthrosis of the tibiotalar joint with a moderate-sized joint effusion and septated posterior ganglion cyst (sagittal series 10 images 12-17). Normal talar dome. Normal subtalar articulations. Normal talonavicular articulation. Normal calcaneocuboid articulation. Normal navicular-cuneiform articulations. Cystic change in the anterior calcaneus with partial fusion of the calcaneo-navicular joint representing fibrocartilaginous calcaneonavicular coalition (sagittal series 10 images 9-14). MRI/Lower Ext Joint Only (Routine) IMPRESSION: Minimal pre-Achilles bursitis. 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 Electronically Signed: Kahlil Herrera, at 13:21 EDT ,
== END | disposition home or self-care (01) ==
PROVIDERS: Referring Provider Podiatrist; Visit Provider Podiatrist
DX: M25.372 Other instability, left ankle (principal)
CPT/HCPCS: 73721

== ENCOUNTER → 2022-07-10 | Outpatient (CLI) | payer BC, SELFPAY ==
--- NOTE | 2022-07-10 14:11 | CT_ITS ---
EXAM: CT LEFT LOWER EXTREMITY WITHOUT INTRAVENOUS CONTRAST CLINICAL INDICATION: Q66.7L TECHNIQUE: Helically acquired images were obtained of the left lower extremity without intravenous contrast. 2-D reformats were performed by the technologist. CTDIvol = ( 15.35 ) mGy, DLP = ( 419.00 ) mGycm This CT exam was performed using one or more of the following dose reduction techniques: automated exposure control, adjustment of the mA and/or kV according to patient size, and/or use of iterative reconstruction technique. This report was created using moka5 report copygram technology. COMPARISON: None. FINDINGS: BONES/JOINTS: Moderate-sized posterior tibiotalar joint effusion. Ligaments are not as well seen but appear to be grossly intact. Prominent plantar and posterior calcaneal enthesophytes. No acute or healing fracture or malalignment. No unusual lytic or sclerotic lesions of bone. SOFT TISSUES: Tendons are intact. Muscles are normal. No soft tissue swelling or gas. No radiopaque foreign body. OTHER FINDINGS: Neurovascular structures are unremarkable. CT/Extremity Lower without Contra IMPRESSION: 1. Moderate-size posterior tibiotalar joint effusion. 2. No acute or healing fracture or malalignment. 3. No other significant internal derangement. Electronically Signed: Isidro Jones MD at 21:45 EDT ,
== END | disposition home or self-care (01) ==
PROVIDERS: Referring Provider Podiatrist; Visit Provider Podiatrist
DX: Q66.72 Congenital pes cavus, left foot (principal)
CPT/HCPCS: 73700

== ENCOUNTER → 2022-07-16 | Outpatient (CLI) | payer BC, SELFPAY ==
--- NOTE | 2022-07-16 15:36 | NEURO_ITS ---
NCS and/or EMG Patient Report Ordering Doctor: Reynaldo Boykin DATE OF SERVICE: 07/16/22 Indication: Left foot pain and ankle weakness. Findings: Nerve conduction studies were performed in the bilateral lower extremities. The right peroneal motor study recording the extensor digitorum brevis showed a normal amplitude, normal distal latency and normal conduction velocity. No conduction block or focal slowing was present across the fibular neck. The right peroneal motor study recording the tibialis anterior showed a normal amplitude, normal distal latency and normal conduction velocity. No conduction block or focal slowing was present across the fibular neck. The right tibial motor study recording the abductor hallucis brevis showed a normal amplitude, normal distal latency and normal conduction velocity. The right sural sensory response showed a normal amplitude and conduction velocity. The right superficial peroneal sensory response showed a normal amplitude and conduction velocity. The left peroneal motor study recording the extensor digitorum brevis showed a normal amplitude, normal distal latency and normal conduction velocity. No conduction block or focal slowing was present across the fibular neck. The left tibial motor study recording the abductor hallucis brevis showed a normal a mplitude, normal distal latency and normal conduction velocity. The left sural sensory response showed a normal amplitude and conduction velocity. The left superficial peroneal sensory response showed a normal amplitude and conduction velocity. Limited needle EMG of the left lower extremity muscles was performed. No denervation was present in any muscle. Motor unit morphology, activation, and recruitment patterns were normal. Impression: This is a normal study. There is no electrophysiologic evidence of peripheral neuropathy in either lower extremity. In addition, there is no definite e lectrophysiologic evidence of sciatic neuropathy, lumbosacral plexopathy or radiculopathy in the left lower extremity. Roman Cohen D.O. Multi Select Codes Neurology Neurology Interp Codes: 82435-60 Musc tst done w/nerv tst gore (interp) and 80439-92 Nrv cndj test 7-8 studies (interp)
== END | disposition home or self-care (01) ==
LOC: PSN 14:41
PROVIDERS: Referring Provider Podiatrist; Visit Provider Podiatrist
DX: Q66.71 Congenital pes cavus, right foot (principal); Q66.72 Congenital pes cavus, left foot
CPT/HCPCS: 95885; 95910

== ENCOUNTER → 2022-10-26 | Outpatient (CLI) | payer BC, SELFPAY ==
[2022-10-26 08:52] LABS: Hemoglobin 13.2 g/dL (12.0-15.0); Mean Corp Hgb Conc 32.2 g/dL (32-36); Mean Corpuscular Hgb 28.4 pg (27.0-32.0); Mean Corpuscular Volume 88.2 fL (81-99); Mean Platelet Vol. 10.1 fl (6.2-12.0); Platelet Count 315 K/mm3 (150-450); RBC Distribution Width CV 12.3 % (11.6-14.6); Red Blood Count 4.65 M/mm3 (4.2-5.4); White Blood Count 6.3 K/mm3 (4.4-11.0)
[2022-10-26 09:36] LABS: ALB/GLOB Ratio 0.7 RATIO (0.9-2.4); AST(SGOT) 15 U/L (15-37); Alanine Aminotransfer ALT/SGPT 23 U/L (13-56); Albumin, Serum 3.2 g/dL (3.2-5.0); Alkaline Phosphatase 84 U/L (45-117); Anion Gap 5 (5-15); BUN 13 mg/dL (7-18); BUN/Creat Ratio 17.2 RATIO (10-20); Calcium,Total 8.7 mg/dL (8.5-10.1); Chloride 108 mmol/L (98-107); Cholesterol 180 mg/dL (200); Creatinine, Serum 0.76 mg/dL (0.55-1.02); EST Glomerular Filtration Rate 96 mL/min (>60); Est Glom Filt Rate - Afr Amer 117 mL/min (>60); Globulin 4.4 g/dL (2.2-4.2); Glucose 90 mg/dL (74-106); High Density Lipoprotein 58 mg/dL; Protein, Total 7.6 g/dL (6.4-8.2); Sodium Level 138 mmol/L (136-145); T4 Free Direct 1.05 ng/dL (0.76-1.46); Thyroid Stim Hormone (TSH) 1.42 uIU/mL (0.358-3.74); Triglycerides 116 mg/dL; Very Low Density Lipoprotein 23 mg/dL (5-40)
== END | disposition home or self-care (01) ==
PROVIDERS: PCP Nurse Practitioner Family; Referring Provider Nurse Practitioner Family; Visit Provider Nurse Practitioner Family
DX: Z13.1 Encounter for screening for diabetes mellitus (principal); Z13.6 Encounter for screening for cardiovascular disorders; G47.00 Insomnia, unspecified; F41.1 Generalized anxiety disorder; R53.82 Chronic fatigue, unspecified
CPT/HCPCS: 36415; 80053; 80061; 84439; 84443; 85027

== ENCOUNTER 2023-05-10 05:58 | Day surgery (SDC) | payer BC, SELFPAY ==
[2023-05-10] VITALS (10 sets, daily range): BP systolic 115–149; BP diastolic 69–95; PULSE 74–98; RESP 16; TEMP 36.2–37.4; O2SAT 93–98; BMI 37.6
--- OUTSIDE RECORDS SUMMARY | 2023-05-10 06:05 | XMS RPT_ITS | CCD ---
Author Name Unknown Address [facility] [address] [place] [address] Organization [facility] Care Team Providers Care Manager Of Environmental Services Name Role Phone Unavailable Primary Care Provider NED Harris Referring Eunice Montalvo Primary Care Provider Eunice DAMON MD, CE Attending Katia DAMON MD, THAN Attending Katia DAMON MD, CE Attending SKYLER Gaspar Attending NED Knapp Attending Eunice navarrete Allergies Allergy Classification Reported Allergen(s) Allergy Type Date of Onset Reaction(s) Facility (15 sources) Seasonal allergy; Translations: [SEASONAL ALLERGIES] Allergy to substance 1 Other: See Comments [facility] Work Phone: (13 sources) Environmental allergies [Other] Propensity to adverse reactions 9 [facility] (2 sources) OTHER; Translations: [OTHER] Propensity to adverse reactions (disorder) 9 [facility] Other [facility] Medications Current Medications Medication Drug Class(es) Dates Sig (Normalized) Sig (Original) amoxicillin 500 mg oral capsule (2 sources) Penicillin-class Antibacterial Start: 02-05-2022 End: 02-15-2022 take 1 capsule by mouth twice daily amoxicillin (POLYMOX, AMOXIL) 500 mg capsule Indications: Strep throat Take 1 capsule by mouth twice daily for 10 days. 20 capsule 0 02/05/2022 02/05/2022 Discontinued Completed/Discontinued Medications Medication Drug Class(es) Dates Sig (Normalized) Sig (Original) benzonatate 100 mg oral capsule (14 sources) Non-narcotic Antitussive Start: 11-10-2021 take 1 capsule by mouth three times daily as needed benzonatate (TESSALON PERLES) 100 mg capsule Indications: Viral URI with cough Take 1 capsule by mouth three times daily as needed. 40 capsule 0 07/17/2022 Active Problems Active Problems Problem Classification Problem Date Documented Date Episodic/Chronic Other lower respiratory disease (1 source) Cough; Translations: [Acute cough] Episodic Other upper respiratory disease (13 sources) Allergic rhinitis due to pollen; Translations: [Allergic rhinitis due to pollen] Onset: 11-29-2008 11-29-2008 Chronic Other upper respiratory disease (1 source) Nasal congestion; Translations: [Nasal congestion] Episodic Other upper respiratory infections (1 source) Bacterial sinusitis; Translations: [Chronic sinusitis, unspecified] Chronic Other upper respiratory infections (3 sources) Streptococcal sore throat; Translations: [Streptococcal pharyngitis] Episodic Syncope (3 sources) Syncope and collapse; Translations: [Syncope and collapse] Onset: 05-08-2022 Episodic Past or Other Problems Problem Classification Problem Date Documented Da te Episodic/Chronic Other lower respiratory disease (13 sources) H/O: asthma; Translations: [Personal history of other diseases of the respiratory system] Onset: 01-03-2017 01-03-2017 Episodic Other skin disorders (13 sources) Acne; Translations: [Acne, unspecified] Onset: 10-30-2011 10-30-2011 Episodic Results Test Name Value Interpretation Reference Range Facil ity Vital Signs Date Time Vital Sign Value Performing Clinician Julien macias 06-20-2022 08:51-0400 Body height 170.2 cm Carla Soto APRN.CNP Work Phone: [facility] 06-20-2022 08:51-0400 Body temperature 98.2 [degF] Carla Soto APRN.CNP Work Phone: [facility] 06-20-2022 08:51-0400 Body weight 117.94 kg Carla Soto APRN.CNP Work Phone: [facility] 06-20-2022 08:51-0400 Diastolic blood pressure 82 mm[Hg] Carla Soto APRN.CNP Work Phone: [facility] 06-20-2022 08:51-0400 Heart rate 76 /min Calra Soto APRN.CNP Work Phone: [facility] 06-20-2022 08:51-0400 Respiratory rate 16 /min Carla Soto TIMBER RIDER.CODING FILE CLERK Work Phone: [facility] 06-20-2022 08:51-0400 SaO2% (BldA) [Mass fraction] 97 % Carla Soto TIMBER RIDER.CODING FILE CLERK Work Phone: [facility] 06-20-2022 08:51-0400 Systolic blood pressure 117 mm[Hg] Carla Soto TIMBER RIDER.CODING FILE CLERK Work Phone: [facility] 02-23-2022 16:11-0500 Body weight 117.94 kg Radha Ball TIMBER RIDER.CODING FILE CLERK Work Phone: [facility] 02-23-2022 16:11-0500 Diastolic blood pressure 57 mm[Hg] Radha Ball TIMBER RIDER.CODING FILE CLERK Work Phone: [facility] 02-23-2022 16:11-0500 Heart rate 92 /min Radha Ball TIMBER RIDER.CODING FILE CLERK Work Phone: [facility] 02-23-2022 16:11-0500 Respiratory rate 16 /min Radha Ball TIMBER RIDER.CODING FILE CLERK Work Phone: [facility] 02-23-2022 16:11-0500 SaO2% (BldA) [Mass fraction] 97 % Radha Ball TIMBER RIDER.CODING FILE CLERK Work Phone: [facility] 02-23-2022 16:11-0500 Systolic blood pressure 112 mm[Hg] Radha Ball TIMBER RIDER.CODING FILE CLERK Work Phone: [facility] 02-05-2022 08:30-0500 Body height 170.2 cm Radha Ball TIMBER RIDER.CODING FILE CLERK Work Phone: [facility] 02-05-2022 08:30-0500 Body temperature 98.4 [degF] Radha Ball TIMBER RIDER.CODING FILE CLERK Work Phone: [facility] 02-05-2022 08:30-0500 Body weight 117.94 kg Radha Ball TIMBER RIDER.CODING FILE CLERK Work Phone: [facility] 02-05-2022 08:30-0500 Diastolic blood pressure 85 mm[Hg] Radha Ball TIMBER RIDER.CODING FILE CLERK Work Phone: [facility] 02-05-2022 08:30-0500 Heart rate 83 /min Radha Dickinson TIMBER RIDER.CODING FILE CLERK Work Phone: [facility] 02-05-2022 08:30-0500 SaO2% (BldA) [Mass fraction] 97 % Radha Dickinson TIMBER RIDER.CODING FILE CLERK Work Phone: [facility] 02-05-2022 08:30-0500 Systolic blood pressure 122 mm[Hg] Radha Dickinson TIMBER RIDER.CODING FILE CLERK Work Phone: [facility] 11-10-2021 16:57-0400 Body height 170.2 cm Maude Wormald PA-C Work Phone: [facility] 11-10-2021 16:57-0400 Body weight 117.94 kg Maude Wormald PA-C Work Phone: [facility] 11-10-2021 16:57-0400 Diastolic blood pressure 77 mm[Hg] Maude Wormald PA-C Work Phone: [facility] 11-10-2021 16:57-0400 Heart rate 79 /min Maude Wormald PA-C Work Phone: [facility] 11-10-2021 16:57-0400 Respiratory rate 18 /min Maude Wormald PA-C Work Phone: [facility] 11-10-2021 16:57-0400 SaO2% (BldA) [Mass fraction] 97 % Maude Wormald PA-C Work Phone: [facility] 11-10-2021 16:57-0400 Systolic blood pressure 127 mm[Hg] Maude Wormald PA-C Work Phone: [facility] Encounters Encounter Date Encounter Type Care Provider Facility Start: 04-24-2023 End: 04-24-2023 ambulatory [facility] Facility:[facility] Start: 08-07-2022 End: 08-07-2022 ambulatory [facility] Facility:[facility] Start: 07-17-2022 End: 07-17-2022 ambulatory SKYLER MCNAIR Facility:[facility] Start: 07-17-2022 End: 07-17-2022 ambulatory [facility] Work Phone: Telemedicine Procedures Date Procedure Procedure Detail Performing Clinician Start: 02-23-2022 STREP A MOLECULAR (POC) [facility] Provider Start: 02-05-2022 STREP A MOLECULAR (POC) [facility] Provider Plan of Treatment Date Care Activity Detail Author Start: 04-08-2029 Urine microalbumin profile DTAP,TDAP,TD (8 - Td or Tdap) [facility] Start: 11-16-2022 Influenza vaccination INFLUENZA (Season Ended) [facility] Start: 03-18-2022 DEPRESSION ASSESSMENT DEPRESSION ASSESSMENT [facility] Start: 11-16-2021 Influenza vaccination INFLUENZA (#1) [facility] Start: 10-21-2021 PAP TESTING PAP TESTING [facility] Start: 09-12-2021 COVID-19 VACCINE (3 - Booster for Pfizer series) COVID-19 VACCINE (3 - Booster for Pfizer series) [facility] Start: 06-09-2021 COVID-19 VACCINE (3 - Booster for Pfizer series) COVID-19 VACCINE (3 - Booster for Pfizer series) [facility] Start: 03-18-2021 DEPRESSION ASSESSMENT DEPRESSION ASSESSMENT [facility] Start: 2012 HEPATITIS C SCREENING HEPATITIS C SCREENING [facility] Start: 2006 Adult depression screening assessment DEPRESSION SCREENING [facility] End: 04-25-2023 EPIL EEG ROUTINE EPIL EEG ROUTINE NEUROLOGY Routine Syncope and collapse 1 Occurrences starting 04/25/2022 until 04/25/2023 [facility] Work Phone: Immunizations Immunization Date Immunization Notes Care Provider Fa denysty 04-08-2019 tetanus toxoid, redu sharron diphtheria toxoid, and acellular pertussis vaccine, adsorbed Maude Wormald PA-C Work Phone: [facility] 12-16-2018 influenza, injectabl e, quadrivalent, contains preservative Maude Wormald PA-C Work Phone: [facility] 07-31-2017 tetanus toxoid, redu sharron diphtheria toxoid, and acellular pertussis vaccine, adsorbed Maude Wormald PA-C Work Phone: [facility] 12-03-2007 influenza virus vaccine, live, attenuated, for intranasal use Maude Rachelle PA-C Work Phone: [facility] Work Phone: 10-08-2007 human papilloma viru s vaccine, quadrivalent Maude Wormkathleen PA-C Work Phone: [facility] Work Phone: 07-22-2006 human papilloma viru s vaccine, quadrivalent Maude Wormald PA-C Work Phone: [facility] Work Phone: 05-15-2006 human papilloma viru s vaccine, quadrivalent Maude Wormald PA-C Work Phone: [facility] Work Phone: 05-15-2006 Meningococcal, MCV4, unspecified conjugate formulation(groups A, C, Y and W-135) [facility] Work Phone: 11-06-2004 tetanus and diphther ia toxoids, adsorbed, preservative free, for adult use (2 Lf of tetanus toxoid and 2 Lf of diphtheria toxoid) Maude Rachelle PA-C Work Phone: [facility] Work Phone: 11-03-1999 diphtheria, tetanus toxoids and acellular pertussis vaccine [facility] Work Phone: 11-03-1999 measles, mumps and rubella virus vaccine Maude Rachelle PA-C Work Phone: [facility] Work Phone: 11-03-1999 trivalent poliovirus vaccine, live, oral Maude Rachelle PA-C Work Phone: [facility] Work Phone: 10-22-[address] [facility] Rachelle PA-C Work Phone: [facility] Work Phone: 12-17-1995 diphtheria, tetanus toxoids and acellular pertussis vaccine Maude Wormald PA-C Work Phone: [facility] Work Phone: 08-20-1995 measles, mumps and rubella virus vaccine Maude Wormald PA-C Work Phone: [facility] Work Phone: 01-02-1995 diphtheria, tetanus toxoids and acellular pertussis vaccine Maude Wormald PA-C Work Phone: [facility] Work Phone: 01-02-1995 hepatitis B vaccine, pediatric or pediatric/adolescent dosage Maude Wormald PA-C Work Phone: [facility] Work Phone: 01-02-1995 trivalent poliovirus vaccine, live, oral Maude Wormald PA-C Work Phone: [facility] Work Phone: 1994 diphtheria, tetanus toxoids and acellular pertussis vaccine Maude Wormald PA-C Work Phone: [facility] Work Phone: 1994 trivalent poliovirus vaccine, live, oral Maude Wormald PA-C Work Phone: [facility] Work Phone: 1994 diphtheria, tetanus toxoids and acellular pertussis vaccine Maude Wormald PA-C Work Phone: [facility] Work Phone: 1994 trivalent poliovirus vaccine, live, oral Maude Wormald PA-C Work Phone: [facility] Work Phone: 1994 hepatitis B vaccine, pediatric or pediatric/adolescent dosage Maude Wormald PA-C Work Phone: [facility] Work Phone: 1994 hepatitis B vaccine, pediatric or pediatric/adolescent dosage Maude Wormald PA-C Work Phone: [facility] Work Phone: Payers Date Payer Category Payer Unknown [id number] 2021 Unknown [id number] 2008 Unknown [id number] 1994 Unknown [id number] 1994 Unknown [id number] 1994 Unknown [id number] Social History Date Type Detail Facility Start: 11-10-2021 Tobacco smoking stat [facility] Never smoked tobacco [facility] Start: 11-10-2021 Tobacco use and exposure Smoke less tobacco non-user [facility] Start: 11-10-2021 End: 02-23-2022 Alcohol intake Current non-drinker of alcohol (finding) [facility] Start: 1995 Sex Assigned At Not on file [facility] Start: 10-31-2021 End: 02-05-2022 Exposure to SARS-CoV-2 (event) Not sure [facility] Clinical Notes 10-21-2018 to 04-24-2023 Patient Hollie Mcnair APRN.SEJAL - 07/17/2022 12:21 PM EDTTelephone Encounter - Chana Jimenez RN - 07/10/2022 11:23 AM EDTTelephone Encounter - Olivia Velasquez - 07/09/2022 3:48 PM EDT Note Date & Type Note Facility 04-24-2023 Note HNO ID: [id number] Author: KELLEY KRAMER PA-C Service: ? Author Type: Physician Maintenance Team Member Type: Progress Notes Filed: 04/24/2023 09:25 Note Text: This note was created using NoteWriter. Subjective Katelyn Flynn is a 27 year old female. HPI Patient presents with the CC of sore throat for 4 days. She also has cough, nasal congestion, over the past 4 days as well. Her daughter is sick with similar symptoms. She wanted to make sure she did not have strep throat so came in for evaluation. She has taken DayQuil and ibuprofen. No vomiting or diarrhea. Denies a fever. No chest pain or shortness of breath. Review of Systems HENT: Positive for congestion, rhinorrhea and sore throat. Negative for ear pain. Respiratory: Positive for cough. Negative for shortness of breath. Cardiovascular: Negative. Gastrointestinal: Negative for abdominal pain, diarrhea, nausea and vomiting. Genitourinary: Negative. Musculoskeletal: Negative. Neurological: Negative. All other systems reviewed and are negative. PAST MEDICAL HISTORY Diagnosis Date Allergic rhinitis, cause unspecified Allergic rhinitis anxiety Asthma exercise induced, no inhaler since 2014 Complication of anesthesia 4 attempts at epidural Diabetes, gestational Gestational hypertension gestational hypertension Herpes simplex Eye Left wrist fracture PMH - PAST MEDICAL HISTORY OF normal color vision Current Outpatient Medications Medication Sig Dispense Refill FLUoxetine (PROZAC) 40 mg capsule 60 mg. No current facility-administered medications for this visit. PAST SURGICAL HISTORY Procedure Laterality Date PAST SURGICAL HISTORY OF wisdom teeth FAMILY HISTORY Problem Relation Age of Onset No Known Problems Mother Hypertension Father Lipids Father High Cholesterol Allergies Father PCN Diabetes Father Diabetes Paternal Grandfather Hypertension Paternal Grandmother Diabetes Paternal Grandmother Allergies Paternal Grandmother Heart Maternal Grandfather No Known Problems Maternal Grandmother Allergies Sister Allergies Brother Asthma Paternal Aunt Allergies Paternal Aunt Cancer Other Paternal Great-Grandfather other (chrosomal abnormality-stillborn) Sister Eczema Son Social History Tobacco Use Smoking status: Never Smokeless tobacco: Never Vaping Use Vaping Use: Never used Substance Use Topics Alcohol use: No Drug use: No Objective BP 124/83 (BP Site: Right Arm, BP Position: Sitting, BP Cuff Size: Regular Adult) Pulse 73 Temp 36.8 ?C (98.3 ?F) (Right Tympanic) Resp 18 Ht 170.2 cm (5' 7 ) Wt 108.2 kg (238 lb 8.6 oz) LMP 12/28/2020 SpO2 97% BMI 37.36 kg/m? Physical Exam Vitals reviewed. Constitutional: Appearance: Normal appearance. HENT: Head: Normocephalic and atraumatic. Right Ear: Tympanic membrane, ear canal and external ear normal. Left Ear: Tympanic membrane, ear canal and external ear normal. Nose: Congestion present. Mouth/Throat: Mouth: Mucous membranes are moist. Pharynx: Posterior oropharyngeal erythema present. No oropharyngeal exudate. Cardiovascular: Rate and Rhythm: Normal rate and regular rhythm. Heart sounds: Normal heart sounds. Pulmonary: Effort: Pulmonary effort is normal. Breath sounds: Normal breath sounds. Musculoskeletal: Cervical back: Neck supple. Lymphadenopathy: Cervical: No cervical adenopathy. Skin: General: Skin is warm and dry. Findings: No rash. Neurological: Mental Status: She is alert. Assessment and Plan ASSESSMENT/PLAN: 1. Viral URI with cough - ICD9: 465.9, ICD10: J06.9 - Discussed viral etiology and rationale for treatment. - Group A strep molecular testing negative - Symptomatic treatment with prn analgesia - Supportive care with fluids and rest - The patient may also use OTC cough and cold meds as needed. - Follow up in 3-5 days if symptoms persist or sooner if worsening of symptoms Kelley Kramer PA-C [facility] 08-07-2022 Note HNO ID: [id number] Author: Radha Dickinson APRN.CODING FILE CLERK Service: ? Author Type: Nurse Practitioner Type: Progress Notes Filed: 08/07/2022 8:37 AM Note Text: This note was created using [employer] Mobileriter. Subjective Katelyn Flynn is a 27 year old female. HPI by patient: Katelyn is a 27 year old presenting to the office with the complaint of sore throat Started approximately 2 days ago Associated symptoms include sore throat Denies any other concerns Covid Immunization Dates Overdue - COVID-19 VACCINE (3 - Booster for Pfizer series) Overdue since 06/09/2021 04/14/2021 Outside Immunization: COVID-19, mRNA, LNP-S, PF, 30 mcg/0.3 mL dose, sami-sucrose 03/24/2021 Outside Immunization: COVID-19, mRNA, LNP-S, PF, 30 mcg/0.3 mL dose Sick contacts: no Smoking history/second hand smoke: no OTC tylenol No antibiotic use in the last 60 days. ALLERGIES Environmental Aller* Comment:Trees, grasses, weeds, ragweed Seasonal Allergies Other: See Comments Comment:Seasonal and Environmental Allergies Sinus problems and ect.. Family History Reviewed Including Cardiac Diseases, Psychiatric Diseases, AND Substance Abuse Problem: No Known Problems Relation: Mother Age of Onset: (Not Specified) Problem: Hypertension Relation: Father Age of Onset: (Not Specified) Problem: Lipids Relation: Father Age of Onset: (Not Specified) Comment: High Cholesterol Problem: Allergies Relation: Father Age of Onset: (Not Specified) Comment: PCN Problem: Diabetes Relation: Father Age of Onset: (Not Specified) Problem: Diabetes Relation: Paternal Grandfather Age of Onset: (Not Specified) Problem: Hypertension Relation: Paternal Grandmother Age of Onset: (Not Specified) Problem: Diabetes Relation: Paternal Grandmother Age of Onset: (Not Specified) Problem: Allergies Relation: Paternal Grandmother Age of Onset: (Not Specified) Problem: Heart Relation: Maternal Grandfather Age of Onset: (Not Specified) Problem: No Known Problems Relation: Maternal Grandmother Age of Onset: (Not Specified) Problem: Allergies Relation: Sister Age of Onset: (Not Specified) Problem: Allergies Relation: Brother Age of Onset: (Not Specified) Problem: Asthma Relation: Paternal Aunt Age of Onset: (Not Specified) Problem: Allergies Relation: Paternal Aunt Age of Onset: (Not Specified) Problem: Cancer Relation: Other Age of Onset: (Not Specified) Comment: Paternal Great-Grandfather Problem: other (chrosomal abnormality-stillborn) Relation: Sister Age of Onset: (Not Specified) Problem: Eczema Relation: Son Age of Onset: (Not Specified) Social History Tobacco Use Smoking status: Never Smokeless tobacco: Never Vaping Use Vaping Use: Never used Alcohol use: No Drug use: No Review of Systems Constitutional: Negative for chills and fever. HENT: Positive for sore throat. Negative for congestion, ear pain and rhinorrhea. Respiratory: Negative for cough. Cardiovascular: Negative for chest pain. Allergic/Immunologic: Negative for immunocompromised state. Hematological: Negative for adenopathy. Objective BP 97/54 Pulse 79 Temp 36.9 ?C (98.5 ?F) Wt 118.4 kg (261 lb) LMP 12/28/2020 SpO2 99% BMI 40.88 kg/m? Physical Exam Vitals and nursing note reviewed. HENT: Right Ear: Tympanic membrane and ear canal normal. Left Ear: Tympanic membrane and ear canal normal. Nose: Nose normal. No congestion or rhinorrhea. Mouth/Throat: Pharynx: Uvula midline. Posterior oropharyngeal erythema present. No oropharyngeal exudate. Tonsils: No tonsillar exudate. 0 on the right. 0 on the left. Cardiovascular: Rate and Rhythm: Normal rate and regular rhythm. Heart sounds: Normal heart sounds. Pulmonary: Effort: Pulmonary effort is normal. Breath sounds: Normal breath sounds. Lymphadenopathy: Cervical: No cervical adenopathy. Skin: General: Skin is warm and dry. Neurological: Mental Status: She is alert and oriented to person, place, and time. Assessment and Plan ASSESSMENT/PLAN: 1. Pharyngitis, unspecified etiology - ICD9: 462, ICD10: J02.9 - suspect viral - Rapid Strep negative in the office today - Discussed supportive care treatment with fluids, rest and analgesia. Radha Dickinson APRN.SEJAL Medical Decision Making: Problems: Moderate: New problem with uncertain prognosis Data: Unique test(s) ordered: 1 Risk: Low: Low risk from testing/treatment Medical Decision Making Level: 3 - Low [facility] 07-17-2022 Note HNO ID: [id number] Author: Skyler Mcnair APRN.SEJAL Service: ? Author Type: Nurse Practitioner Type: Progress Notes Filed: 07/17/2022 12:29 PM Note Text: Telemedicine Visit - Distance Health Virtual Visit Note Patient seen on [email or web address] Online platform. Location of patient: [place] I have communicated my name and active licensure. The patient's identity and physical location were verified at the time of this visit. Either the patient or their legal insurance follow up representative has been informed of the risks and benefits of -- and alternatives to -- treatment through a remote evaluation and consents to proceed with the evaluation remotely. History of Present Illness Katelyn Flynn is a 27 year old year old female who presents for the past 2 days with symptoms that are:constant. Symptoms include: Positive for Cough, Wheezing, Nasal congestion, and Rhinorrhea, Negative for Fever, SOB, and PATEL Oral intake: Yes Tobacco use: No Second hand smoke exposure: No Recent exposure to strep:No Sick contacts: NA Recent travel: NA OTC meds/remedies that patient has tried: Flonase and Claritin. PAST MEDICAL HISTORY Diagnosis Date Allergic rhinitis, cause unspecified Allergic rhinitis anxiety Asthma exercise induced, no inhaler since 2014 Complication of anesthesia 4 attempts at epidural Diabetes, gestational Gestational hypertension gestational hypertension Herpes simplex Eye Left wrist fracture PMH - PAST MEDICAL HISTORY OF normal color vision PAST SURGICAL HISTORY Procedure Laterality Date PAST SURGICAL HISTORY OF wisdom teeth FAMILY HISTORY Problem Relation Age of Onset No Known Problems Mother Hypertension Father Lipids Father High Cholesterol Allergies Father PCN Diabetes Father Diabetes Paternal Grandfather Hypertension Paternal Grandmother Diabetes Paternal Grandmother Allergies Paternal Grandmother Heart Maternal Grandfather No Known Problems Maternal Grandmother Allergies Sister Allergies Brother Asthma Paternal Aunt Allergies Paternal Aunt Cancer Other Paternal Great-Grandfather other (chrosomal abnormality-stillborn) Sister Eczema Son Social History Tobacco Use Smoking status: Never Smokeless tobacco: Never Vaping Use Vaping Use: Never used Substance Use Topics Alcohol use: No Drug use: No Current Outpatient Medications Medication Sig predniSONE (DELTASONE) 20 mg tablet Take 2 tablets by mouth once daily for 5 days. benzonatate (TESSALON PERLES) 100 mg capsule Take 1 capsule by mouth three times daily as needed. FLUoxetine (PROZAC) 40 mg capsule TAKE 1 CAPSULE BY MOUTH EVERY DAY FOR 30 DAYS LIDOCAINE VISCOUS 2 % solution Take 15 mL by mouth every 4 hours as needed. ixfpmimqmgUQUSD-tketvp-qrykdaiec (BMX 1:1:1) 1:1:1 liqd Take 5 mL by mouth four times daily. (Patient not taking: Reported on 02/23/2022) citalopram (CELEXA) 20 mg tablet benzonatate (TESSALON PERLES) 100 mg capsule Take 1 capsule by mouth three times daily as needed for cough. (Patient not taking: Reported on 02/23/2022) No current facility-administered medications for this visit. ALLERGIES Allergen Reactions Environmental Aller* Trees, grasses, weeds, ragweed Seasonal Allergies Other: See Comments Seasonal and Environmental Allergies Sinus problems and ect.. Video Exam (Examination performed via Video enabled technology) General appearance: Alert, oriented, pleasant, in NAD :Yes Ill appearing :No Lethargic appearing :No Eyes: Sclera clear :Yes Conjunctiva without erythema :Yes Ears: Tragus / outer ear tenderness by self palpation :No Oropharynx: normal, no erythema Frontal sinus tenderness by self palpation;No Maxillary sinus tenderness by self palpation :No Tender cervical adenopathy by self palpation :No Respiratory distress :No Coughing noted :Yes Audible wheezing noted :No ASSESSMENT/PLAN: 1. Viral URI with cough - ICD9: 465.9, ICD10: J06.9 - Discussed viral etiology and rationale for treatment. - Symptomatic treatment with prn analgesia - Supportive care with fluids and rest - Follow up in one week if symptoms persist or sooner if worsening of symptoms IN PERSON - PREDNISONE 20 MG TABLET - BENZONATATE 100 MG CAPSULE -Allergy medication (Claritin, Zyrtec, Dannielle-generic is fine) to dry up drainage -Nasal saline to flush out bacteria -Mucinex (generic is fine) 1200 mg twice daily to help with cough and to thin out mucus -http://www.choosingwisely.org/p atient-resources/antibiotics/. This link shares information about when antibiotics may help and when they may not. - Red flags discussed for need for in person care - All questions answered Skyler Mcnari APRN.SEJAL If you let us know who your primary care provider is, we will send them a notification of today?s visit through our electronic medical records system. Since not all providers have access to our notifications, we strongly encourag (more content not included)... [facility] 07-17-2022 Instructions Skyler Mcnair APRN.CNP - 07/17/2022 12:29 PM EDT [facility] PATIENT INFO BRONCHITIS OVERVIEW Bronchitis develops when there is swelling and irritation of the bronchi, the large tubes that carry air to the lungs. There are two types of bronchitis: acute (sudden onset) and chronic (long-standing). Acute bronchitis often occurs with a viral infection, such as the common cold, and is sometimes called a chest cold . The most common symptom of acute bronchitis is a nagging cough. Treatment of acute bronchitis usually involves treating the symptoms, such as sore throat and congestion. Antibiotics do not help to eliminate acute bronchitis caused by a virus. Antiviral agents are useful in some cases of acute bronchitis due to influenza, but there are antiviral agents for other forms of viral bronchitis. BRONCHITIS CAUSES Most cases of bronchitis are caused by a viral infection of the upper airways, such as the common cold or the flu. Less commonly, a bacterium such as pertussis (whooping cough) is the cause. BRONCHITIS SYMPTOMS The most common symptoms of acute bronchitis include: A persistent cough; this may last 10 to 20 days Some people cough up mucus, which may be clear, yellow, or green in color Fever is not common in people with acute bronchitis. However, having a fever can be a sign of another condition, such as the flu or pneumonia. Conditions with similar features -- There are other conditions that have symptoms similar to those of acute bronchitis. Chronic cough -- A persistent cough that lasts more than eight weeks is considered a chronic cough, which is discussed in detail elsewhere. Chronic bronchitis -- Chronic bronchitis is defined as a cough that occurs on most days of the month for at least three months of the year during two consecutive years. Pneumonia -- Signs of pneumonia include fever and a fast heart and breathing rate. Postnasal drip -- Postnasal drip occurs when secretions drain from the sinuses into the throat. This can cause the throat to feel irritated, which causes you to feel like you need to clear your throat frequently. Postnasal drip can be caused by the common cold, allergies, sinusitis, or environmental irritants. BRONCHITIS DIAGNOSIS Most people who have a persistent cough after an upper respiratory infection (cold) do not need to see a healthcare provider. Diagnostic testing, such as x-rays, cultures, and blood tests, are not usually needed for people with acute bronchitis. However, testing may be recommended if your diagnosis is not clear based upon your examination or if another condition, such as pneumonia, is suspected. When to seek help -- You should call your healthcare provider if you have any of the following: Fever (temperature greater than 100.4 F or 38 C) A cough that lasts longer than 10 days Chest pain with coughing, difficulty breathing, or coughing up blood A barking cough that makes it hard to speak, especially if it persists Cough accompanied by unexplained weight loss People who are older than 75 do not always have a fever or other concerning symptoms. If you are over 75 years and you have a persistent cough, you should call your clinician to determine if and when an office visit is recommended. BRONCHITIS TREATMENT Relief of symptoms -- There is no specific treatment for bronchitis, but there are a few treatments available for the common cold. A nonsteroidal antiinflammatory drug (ibuprofen, naproxen), aspirin, or acetaminophen (Tylenol ) can help to relieve the pain of a sore throat or headache. Pseudoephedrine is a decongestant that can improve nasal congestion. Most drugstores in the [place] carry pseudoephedrine behind the counter, so you must ask for it from the pharmacist (a prescription is not required). Other decongestants, such as phenylephrine, are not as effective as pseudoephedrine. Antihistamines such as diphenhydramine (Benadryl ) may also help, but can cause side effects such as drowsiness and drying of the eyes, nose, and mouth. Heated, humidified, air can improve symptoms of nasal congestion and runny nose, and has few to no side effects. Cough suppressants such as dextromethorphan may be helpful. Antibiotics -- Antibiotics are NOT helpful for most people with bronchitis since the illness is typically caused by a virus. Antibiotics treat bacterial, not viral infections. Antibiotics may be helpful for some patients with other chronic diseases. Many people request antibiotics in the hopes that it will get rid of the cough, and some people even think that antibiotics have helped on previous occasions. However, there is no benefit of antibiotics for most cases of bronchitis. PREVENTING THE SPREAD OF ILLNESS Hand washing is an essential and highly effective way to prevent the spread of infection. Wet your hands with water and plain soap and rub them together for 15 to 30 seconds. Pay special attention to the fingernails, between the fingers, and the wrists. Rinse your hands thoroughly, and dry with a single use towel. Alcohol-based hand rubs are a good alternative for disinfecting hands if a sink is not available. Spread the hand rub over the entire surface of your hands, fingers, and wrists until dry. You can use hand rubs repeatedly without irritating the skin or losing effectiveness. Hand rubs are available as a liquid or wipe in small, portable sizes that are easy to carry in a pocket or handbag. When a sink is available, you should wash visibly soiled hands with soap and water. Wash your hands before preparing food and eating, and after going to the bathroom, and after coughing, blowing the nose, or sneezing. While it is not always possible to limit contact with people who are ill, avoid touching your eyes, nose, or mouth after direct contact, when possible. In addition, use a tissue to cover your mouth when sneezing or coughing. Throw away used tissues promptly and then wash your hands. Sneezing/coughing into the sleeve of your clothing (at the inner elbow) is another way of containing sprays of saliva and secretions and does not contaminate your hands. Sneezing and coughing without covering your mouth can spread infection to anyone within 6 feet. documented in this encounter [facility] 07-17-2022 History of Presen t illness Narrative Telemedicine Visit - Distance Health Virtual Visit Note Patient seen on [email or web address] Online platform. Location of patient: [place] I have communicated my name and active licensure. The patient's identity and physical location were verified at the time of this visit. Either the patient or their legal insurance follow up representative has been informed of the risks and benefits of -- and alternatives to -- treatment through a remote evaluation and consents to proceed with the evaluation remotely. History of Present Illness Katelyn Flynn is a 27 year old year old female who presents for the past 2 days with symptoms that are:constant. Symptoms include: Positive for Cough, Wheezing, Nasal congestion, and Rhinorrhea, Negative for Fever, SOB, and PATEL Oral intake: Yes Tobacco use: No Second hand smoke exposure: No Recent exposure to strep:No Sick contacts: NA Recent travel: NA OTC meds/remedies that patient has tried: Flonase and Claritin. PAST MEDICAL HISTORY Diagnosis Date Allergic rhinitis, cause unspecified Allergic rhinitis anxiety Asthma exercise induced, no inhaler since 2014 Complication of anesthesia 4 attempts at epidural Diabetes, gestational Gestational hypertension gestational hypertension Herpes simplex Eye Left wrist fracture PMH - PAST MEDICAL HISTORY OF normal color vision PAST SURGICAL HISTORY Procedure Laterality Date PAST SURGICAL HISTORY OF wisdom teeth FAMILY HISTORY Problem Relation Age of Onset No Known Problems Mother Hypertension Father Lipids Father High Cholesterol Allergies Father PCN Diabetes Father Diabetes Paternal Grandfather Hypertension Paternal Grandmother Diabetes Paternal Grandmother Allergies Paternal Grandmother Heart Maternal Grandfather No Known Problems Maternal Grandmother Allergies Sister Allergies Brother Asthma Paternal Aunt Allergies Paternal Aunt Cancer Other Paternal Great-Grandfather other (chrosomal abnormality-stillborn) Sister Eczema Son Social History Tobacco Use Smoking status: Never Smokeless tobacco: Never Vaping Use Vaping Use: Never used Substance Use Topics Alcohol use: No Drug use: No Current Outpatient Medications Medication Sig predniSONE (DELTASONE) 20 mg tablet Take 2 tablets by mouth once daily for 5 days. benzonatate (TESSALON PERLES) 100 mg capsule Take 1 capsule by mouth three times daily as needed. FLUoxetine (PROZAC) 40 mg capsule TAKE 1 CAPSULE BY MOUTH EVERY DAY FOR 30 DAYS LIDOCAINE VISCOUS 2 % solution Take 15 mL by mouth every 4 hours as needed. funvovkoznTXDMD-ftqnzr-clujjfyeb (BMX 1:1:1) 1:1:1 liqd Take 5 mL by mouth four times daily. (Patient not taking: Reported on 02/23/2022) citalopram (CELEXA) 20 mg tablet benzonatate (TESSALON PERLES) 100 mg capsule Take 1 capsule by mouth three times daily as needed for cough. (Patient not taking: Reported on 02/23/2022) No current facility-administered medications for this visit. ALLERGIES Allergen Reactions Environmental Aller* Trees, grasses, weeds, ragweed Seasonal Allergies Other: See Comments Seasonal and Environmental Allergies Sinus problems and ect.. Video Exam (Examination performed via Video enabled technology) General appearance: Alert, oriented, pleasant, in NAD :Yes Ill appearing :No Lethargic appearing :No Eyes: Sclera clear :Yes Conjunctiva without erythema :Yes Ears: Tragus / outer ear tenderness by self palpation :No Oropharynx: normal, no erythema Frontal sinus tenderness by self palpation;No Maxillary sinus tenderness by self palpation :No Tender cervical adenopathy by self palpation :No Respiratory distress :No Coughing noted :Yes Audible wheezing noted :No ASSESSMENT/PLAN: 1. Viral URI with cough - ICD9: 465.9, ICD10: J06.9 - Discussed viral etiology and rationale for treatment. - Symptomatic treatment with prn analgesia - Supportive care with fluids and rest - Follow up in one week if symptoms persist or sooner if worsening of symptoms IN PERSON - PREDNISONE 20 MG TABLET - BENZONATATE 100 MG CAPSULE -Allergy medication (Claritin, Zyrtec, Dannielle-generic is fine) to dry up drainage -Nasal saline to flush out bacteria -Mucinex (generic is fine) 1200 mg twice daily to help with cough and to thin out mucus -http://www.choosingwisely.org/p atient-resources/antibiotics/. This link shares information about when antibiotics may help and when they may not. - Red flags discussed for need for in person care - All questions answered Skyler Mcnair APRN.CODING FILE CLERK If you let us know who your primary care provider is, we will send them a notification of today s visit through our electronic medical records system. Since not all providers have access to our notifications, we strongly encourage you to share the following record of today s visit with your primary care provider at your next visit. This will help in providing you the best care. If you do not have an established Primary Care physician and would like to continue care with a [facility] Virtual Primary Care physician, please ask your provider to place a Establish Primary Care order. Use [employer] to manage your care, wherever you are, 08/10, on your mobile device or computer. [employer] connects you to PPTV so you can access all your health information in one place and also schedule and request virtual appointments with primary care providers. documented in this encounter [facility] 07-10-2022 Miscellaneous Notes I spoke with Alka Zepeda is request office notes regarding referral to emt dispatcher faxed to Nae Perales [phone] Faxed office notes to Nae Galarza [phone] with claim number [id number] Chana Jimenez RN Call was made to Katelyn , no answer. Message was left requesting a return call. Chana Rose RN General call : Full name of person calling: Katelyn Flynn Relationship to patient: self Phone # : [phone] (home) Reason for call: additional information needed for work paperwork Patient of Dr. Andre documented in this encounter [facility] 07-05-2022 Note HNO ID: [id number] Author: Ned Guerra MD Service: ? Author Type: Physician Type: Progress Notes Filed: 07/05/2022 9:20 AM Note Text: [facility] Patient Name: Katelyn Flynn Date of : 1995 I have communicated my name and active licensure. The patient's identity and physical location were verified at the time of this visit. Either the patient or their legal insurance follow up representative has been informed of the risks and benefits of treatment through a remote evaluation and consents to proceed with the evaluation remotely. ESTABLISHED EPILEPSY CLINIC NOTE 07/05/2022 9:00 AM Reason for Visit: Follow Up Clinical Summary: Ms. Flynn is a 27 year old female seen in [facility]. We had a visit using: Garden Mate I received consent from the patient to perform the visit using this platform. There is no one accompanying the patient during today's visit. HISTORY OF PRESENT ILLNESS Age of onset: 26 years Seizure History and Evolution Patient with new onset spells that occurred 2 days ago. reports that prior to the episodes her ankle gave out, she was on pain and fell to the ground. told the patient that soon after she experienced an event during which her eyes rolled up, her body was shaking for about 15 seconds. She was unresponsive. After that she heard him yelling her name. She rolled over and she experienced another event, again she was shaking, unresponsive for 5 seconds. Confused for a short period of time. No urine incontinence. Prior to these 2 events she felt lightheadedness, she was sweating, she was told that she was paled. help her to sit up and went to the ED ([facility]) CT head was reported as normal. Takes Prozac for depression Interval Seizure History Patient presented with a syncopal episode. EEG was normal and EAD treatment was deferred. She was referred by cardiology. She completed this evaluation and she is now cleared. Total # of Current Anti-seizure Medications: Side Effects to Current Anti-seizure Medications: Seizure Frequency at First Visit: Longest Seizure-free Interval: Number of seizure types: 1 Driving: Yes Lives Alone: No CURRENT OUTPATIENT ANTISEIZURE MEDICATIONS (as of the start of the encounter) None Prior Anti-seizure Therapies: Trial Adequacy: Max Daily Dose Achieved: Side Effects: Effectiveness: Comments: Comorbidities: Episode Description: SEIZURE TYPE 1: spells Loss of awareness: Duration: Frequency: Last occurred: Patient Entered Data: EPILEPSY SCORE 07/05/2022 8:55 AM 04/25/2022 11:05 AM 04/25/2022 11:01 AM PHQ-9 SCORE 4 [None-Minimal Depression] 4 [None-Minimal Depression] - SLOANE 2 SCORE 3 [Positive Anxiety Screen] 2 [Negative Anxiety Screen] - SLOANE 7 SCORE 8 [Mild Anxiety Disorder] - - QOLIE-10 SCORE (0=worst; 100=best QoL - higher scores represent better function) 15 19 - LSSS SCORE (0- no seizures 100- most severe possible seizures) - 45 - C-SSRS SCREEN - - - On average, how many hours of sleep do you get in a 24-hour period? - 6 - PROMIS Sleep Disturbance T-SCORE - - 54 [within normal limits] Have you been diagnosed with Sleep Apnea? - No - Seizure risk factors: Brain Tumor Unanswered CARE ADVOCATE Infections Unanswered Developmental Delay Unanswered Family history of seizures Unanswered Febrile Seizure Unanswered Complications Unanswered Stroke Unanswered Traumatic Brain Injury Unanswered Previous Epilepsy Evaluations Other caregivers: Primary Care Provider: No primary care provider on file. Current Outpatient Medications Medication Sig FLUoxetine (PROZAC) 40 mg capsule TAKE 1 CAPSULE BY MOUTH EVERY DAY FOR 30 DAYS LIDOCAINE VISCOUS 2 % solution Take 15 mL by mouth every 4 hours as needed. igmoytdvveLFOIG-wxcsva-pygkboqky (BMX 1:1:1) 1:1:1 liqd Take 5 mL by mouth four times daily. (Patient not taking: Reported on 02/23/2022) citalopram (CELEXA) 20 mg tablet benzonatate (TESSALON PERLES) 100 mg capsule Take 1 capsule by mouth three times daily as needed for cough. (Patient not taking: Reported on 02/23/2022) No current facility-administered medications for this visit. ALLERGIES Allergen Reactions Environmental Aller* Trees, grasses, weeds, ragweed Seasonal Allergies Other: See Comments Seasonal and Environmental Allergies Sinus problems and ect.. PAST MEDICAL HISTORY Diagnosis Date Allergic rhinitis, cause unspecified Allergic rhinitis anxiety Asthma exercise induced, no inhaler since 2014 Complication of anesthesia 4 attempts at epidural Diabetes, gestational Gestational hypertension gestational hypertension Herpes simplex Eye Left wrist fracture PMH - PAST MEDICAL HISTORY OF normal color vision PAST SURGICAL HISTORY Procedure Laterality Date PAST SURGICAL HISTORY OF wisdom teeth FAMILY HISTORY Problem R (more content not included)... [facility] 07-05-2022 History of Presen t illness Narrative [facility] Patient Name: Katelyn Flynn Date of : 1995 I have communicated my name and active licensure. The patient's identity and physical location were verified at the time of this visit. Either the patient or their legal insurance follow up representative has been informed of the risks and benefits of treatment through a remote evaluation and consents to proceed with the evaluation remotely. ESTABLISHED EPILEPSY CLINIC NOTE 07/05/2022 9:00 AM Reason for Visit: Follow Up Clinical Summary: Ms. Flynn is a 27 year old female seen in [facility]. We had a visit using: Garden Mate I received consent from the patient to perform the visit using this platform. There is no one accompanying the patient during today's visit. HISTORY OF PRESENT ILLNESS Age of onset: 26 years Seizure History and Evolution Patient with new onset spells that occurred 2 days ago. reports that prior to the episodes her ankle gave out, she was on pain and fell to the ground. told the patient that soon after she experienced an event during which her eyes rolled up, her body was shaking for about 15 seconds. She was unresponsive. After that she heard him yelling her name. She rolled over and she experienced another event, again she was shaking, unresponsive for 5 seconds. Confused for a short period of time. No urine incontinence. Prior to these 2 events she felt lightheadedness, she was sweating, she was told that she was paled. help her to sit up and went to the ED ([facility]) CT head was reported as normal. Takes Prozac for depression Interval Seizure History Patient presented with a syncopal episode. EEG was normal and EAD treatment was deferred. She was referred by cardiology. She completed this evaluation and she is now cleared. Total # of Current Anti-seizure Medications: Side Effects to Current Anti-seizure Medications: Seizure Frequency at First Visit: Longest Seizure-free Interval: Number of seizure types: 1 Driving: Yes Lives Alone: No CURRENT OUTPATIENT ANTISEIZURE MEDICATIONS (as of the start of the encounter) None Prior Anti-seizure Therapies: Trial Adequacy: Max Daily Dose Achieved: Side Effects: Effectiveness: Comments: Comorbidities: Episode Description: SEIZURE TYPE 1: spells Loss of awareness: Duration: Frequency: Last occurred: Patient Entered Data: EPILEPSY SCORE 07/05/2022 8:55 AM 04/25/2022 11:05 AM 04/25/2022 11:01 AM PHQ-9 SCORE 4 [None-Minimal Depression] 4 [None-Minimal Depression] - SLOANE 2 SCORE 3 [Positive Anxiety Screen] 2 [Negative Anxiety Screen] - SLOANE 7 SCORE 8 [Mild Anxiety Disorder] - - QOLIE-10 SCORE (0=worst; 100=best QoL - higher scores represent better function) 15 19 - LSSS SCORE (0- no seizures 100- most severe possible seizures) - 45 - C-SSRS SCREEN - - - On average, how many hours of sleep do you get in a 24-hour period? - 6 - PROMIS Sleep Disturbance T-SCORE - - 54 [within normal limits] Have you been diagnosed with Sleep Apnea? - No - Seizure risk factors: Brain Tumor Unanswered CARE ADVOCATE Infections Unanswered Developmental Delay Unanswered Family history of seizures Unanswered Febrile Seizure Unanswered Complications Unanswered Stroke Unanswered Traumatic Brain Injury Unanswered Previous Epilepsy Evaluations Other caregivers: Primary Care Provider: No primary care provider on file. Current Outpatient Medications Medication Sig FLUoxetine (PROZAC) 40 mg capsule TAKE 1 CAPSULE BY MOUTH EVERY DAY FOR 30 DAYS LIDOCAINE VISCOUS 2 % solution Take 15 mL by mouth every 4 hours as needed. ckjklpmjttNXHHV-ostzqw-irxlhxsve (BMX 1:1:1) 1:1:1 liqd Take 5 mL by mouth four times daily. (Patient not taking: Reported on 02/23/2022) citalopram (CELEXA) 20 mg tablet benzonatate (TESSALON PERLES) 100 mg capsule Take 1 capsule by mouth three times daily as needed for cough. (Patient not taking: Reported on 02/23/2022) No current facility-administered medications for this visit. ALLERGIES Allergen Reactions Environmental Aller* Trees, grasses, weeds, ragweed Seasonal Allergies Other: See Comments Seasonal and Environmental Allergies Sinus problems and ect.. PAST MEDICAL HISTORY Diagnosis Date Allergic rhinitis, cause unspecified Allergic rhinitis anxiety Asthma exercise induced, no inhaler since 2014 Complication of anesthesia 4 attempts at epidural Diabetes, gestational Gestational hypertension gestational hypertension Herpes simplex Eye Left wrist fracture PMH - PAST MEDICAL HISTORY OF normal color vision PAST SURGICAL HISTORY Procedure Laterality Date PAST SURGICAL HISTORY OF wisdom teeth FAMILY HISTORY Problem Relation Age of Onset No Known Problems Mother Hypertension Father Lipids Father High Cholesterol Allergies Father PCN Diabetes Father Diabetes Paternal Grandfather Hypertension Paternal Grandmother Diabetes Paternal Grandmother Allergies Paternal Grandmother Heart Maternal Grandfather No Known Problems Maternal Grandmother Allergies Sister Allergies Brother Asthma Paternal Aunt Allergies Paternal Aunt Cancer Other Paternal Great-Grandfather other (chrosomal abnormality-stillborn) Sister Eczema Son SOCIAL HISTORY: -Lives in [place], [place] -Patient lives alone? No -Functional status: independent in activities of daily living -Patient driving? Yes Review of Systems negative VITAL SIGNS: LMP 12/28/2020 General Examination: General Exam deferred IMPRESSION: History suggestive of syncopal episode , possible convulsive syncope in the setting of pain. CT reported as normal. She has no risk factors for epilepsy. Discussed with the patient the need to compete this evaluation with EEG. If normal therapy for seizures will be deferred. Consult to cardiology is an option or she will follow up with PCP Interval Impression: Syncopal event. EEG was normal. AED was deferred. Cardiac work up was negative. Patient is cleared to return to work without restrictions. PLAN: Follow up as needed I discussed the risks, benefits and alternatives of the medical plan with the patient. Questions were answered. The patient agreed with the plan as discussed. I spent a total of 18 minutes on the date of the service which included duuc-pl-thao patient care. Ned Mancia M.D documented in this encounter [facility] 06-20-2022 Note HNO ID: [id number] Author: Carla Soto APRN.CODING FILE CLERK Service: ? Author Type: Nurse Practitioner Type: Progress Notes Filed: 06/20/2022 9:05 AM Note Text: SUBJECTIVE: Katelyn Flynn is a 26 year old female. Who presents today with cough congestion sore throat and headache for over 2 weeks. She has not had a fever. She has not been exposed to anyone who is sick. She has taken mucinex tylenol cold and flu at home. She states that the cough and congestion is getting worse. She also has a history of seasonal allergies, but currently is not taking any allergy medications HPI PAST MEDICAL HISTORY Diagnosis Date Allergic rhinitis, cause unspecified Allergic rhinitis anxiety Asthma exercise induced, no inhaler since 2014 Complication of anesthesia 4 attempts at epidural Diabetes, gestational Gestational hypertension gestational hypertension Herpes simplex Eye Left wrist fracture PMH - PAST MEDICAL HISTORY OF normal color vision FAMILY HISTORY Problem Relation Age of Onset No Known Problems Mother Hypertension Father Lipids Father High Cholesterol Allergies Father PCN Diabetes Father Diabetes Paternal Grandfather Hypertension Paternal Grandmother Diabetes Paternal Grandmother Allergies Paternal Grandmother Heart Maternal Grandfather No Known Problems Maternal Grandmother Allergies Sister Allergies Brother Asthma Paternal Aunt Allergies Paternal Aunt Cancer Other Paternal Great-Grandfather other (chrosomal abnormality-stillborn) Sister Eczema Son Social History Tobacco Use Smoking status: Never Smokeless tobacco: Never Vaping Use Vaping Use: Never used Substance Use Topics Alcohol use: No Drug use: No ALLERGIES Allergen Reactions Environmental Aller* Trees, grasses, weeds, ragweed Seasonal Allergies Other: See Comments Seasonal and Environmental Allergies Sinus problems and ect.. Current Outpatient Medications Medication Sig Dispense Refill FLUoxetine (PROZAC) 40 mg capsule TAKE 1 CAPSULE BY MOUTH EVERY DAY FOR 30 DAYS LIDOCAINE VISCOUS 2 % solution Take 15 mL by mouth every 4 hours as needed. 100 mL 0 cvkcnwwqouWZNKQ-rjttnm-zekjsrrxq (BMX 1:1:1) 1:1:1 liqd Take 5 mL by mouth four times daily. (Patient not taking: Reported on 02/23/2022) 120 mL 0 citalopram (CELEXA) 20 mg tablet benzonatate (TESSALON PERLES) 100 mg capsule Take 1 capsule by mouth three times daily as needed for cough. (Patient not taking: Reported on 02/23/2022) 21 capsule 0 No current facility-administered medications for this visit. OBJECTIVE: BP 117/82 Pulse 76 Temp 36.8 ?C (98.2 ?F) Resp 16 Ht 170.2 cm (5' 7 ) Wt 117.9 kg (260 lb) LMP 12/28/2020 SpO2 97% BMI 40.72 kg/m? ROS all other systems reviewed and are negative Physical Exam Constitutional: Well developed, well nourished, NAD, AANDO X3. ENT: Head is atraumatic, airway patent, mucosal membranes moist. Neck: supple with no palpable lymph nodes Cardiac: Heart tone normal rate and rhythm Respiratory: Breath sounds clear : no CVA tenderness MS: no swelling, tenderness or deformity in upper or lower extremities, no midline tenderness in cervical, thoracic or lumbar spine. Neuro: strength sensation and coordination intact. CN II-XII grossly intact, Skin: warm and dry with out rash, lesion or ecchymosis on exposed skin Psych: alert appropriate, speech clear It was a pleasure to take care of Katelyn Flynn today. Since her symptoms have lingered for more than 2 weeks, I will treat her for a sinus infections. She may continue with motrin and tylenol along with augmentin. She may also consider restarting her allergy medicine as allergy season is starting. Patient will follow up with family physician. They may return to the Urgent Care or go to the ER for worsening symptoms or concerns. Patient verbalized understanding of plan of care and is in agreement. ASSESSMENT/PLAN: 1. Bacterial sinusitis - ICD9: 473.9, 041.9, ICD10: J32.9, B96.89 - AMOXICILLIN 875 MG-POTASSIUM CLAVULANATE 125 MG TABLET Carla Soto APRN.[facility] 06-20-2022 History of Presen t illness Narrative SUBJECTIVE: Katelyn Flynn is a 26 year old female. Who presents today with cough congestion sore throat and headache for over 2 weeks. She has not had a fever. She has not been exposed to anyone who is sick. She has taken mucinex tylenol cold and flu at home. She states that the cough and congestion is getting worse. She also has a history of seasonal allergies, but currently is not taking any allergy medications HPI PAST MEDICAL HISTORY Diagnosis Date Allergic rhinitis, cause unspecified Allergic rhinitis anxiety Asthma exercise induced, no inhaler since 2014 Complication of anesthesia 4 attempts at epidural Diabetes, gestational Gestational hypertension gestational hypertension Herpes simplex Eye Left wrist fracture PMH - PAST MEDICAL HISTORY OF normal color vision FAMILY HISTORY Problem Relation Age of Onset No Known Problems Mother Hypertension Father Lipids Father High Cholesterol Allergies Father PCN Diabetes Father Diabetes Paternal Grandfather Hypertension Paternal Grandmother Diabetes Paternal Grandmother Allergies Paternal Grandmother Heart Maternal Grandfather No Known Problems Maternal Grandmother Allergies Sister Allergies Brother Asthma Paternal Aunt Allergies Paternal Aunt Cancer Other Paternal Great-Grandfather other (chrosomal abnormality-stillborn) Sister Eczema Son Social History Tobacco Use Smoking status: Never Smokeless tobacco: Never Vaping Use Vaping Use: Never used Substance Use Topics Alcohol use: No Drug use: No ALLERGIES Allergen Reactions Environmental Aller* Trees, grasses, weeds, ragweed Seasonal Allergies Other: See Comments Seasonal and Environmental Allergies Sinus problems and ect.. Current Outpatient Medications Medication Sig Dispense Refill FLUoxetine (PROZAC) 40 mg capsule TAKE 1 CAPSULE BY MOUTH EVERY DAY FOR 30 DAYS LIDOCAINE VISCOUS 2 % solution Take 15 mL by mouth every 4 hours as needed. 100 mL 0 gaoxzprgfoWKPTO-ubabmz-wxoumtfzt (BMX 1:1:1) 1:1:1 liqd Take 5 mL by mouth four times daily. (Patient not taking: Reported on 02/23/2022) 120 mL 0 citalopram (CELEXA) 20 mg tablet benzonatate (TESSALON PERLES) 100 mg capsule Take 1 capsule by mouth three times daily as needed for cough. (Patient not taking: Reported on 02/23/2022) 21 capsule 0 No current facility-administered medications for this visit. OBJECTIVE: BP 117/82 Pulse 76 Temp 36.8 C (98.2 F) Resp 16 Ht 170.2 cm (5' 7 ) Wt 117.9 kg (260 lb) LMP 12/28/2020 SpO2 97% BMI 40.72 kg/m ROS all other systems reviewed and are negative Physical Exam Constitutional: Well developed, well nourished, NAD, A&O X3. ENT: Head is atraumatic, airway patent, mucosal membranes moist. Neck: supple with no palpable lymph nodes Cardiac: Heart tone normal rate and rhythm Respiratory: Breath sounds clear : no CVA tenderness MS: no swelling, tenderness or deformity in upper or lower extremities, no midline tenderness in cervical, thoracic or lumbar spine. Neuro: strength sensation and coordination intact. CN II-XII grossly intact, Skin: warm and dry with out rash, lesion or ecchymosis on exposed skin Psych: alert appropriate, speech clear It was a pleasure to take care of Katelyn Flynn today. Since her symptoms have lingered for more than 2 weeks, I will treat her for a sinus infections. She may continue with motrin and tylenol along with augmentin. She may also consider restarting her allergy medicine as allergy season is starting. Patient will follow up with family physician. They may return to the Urgent Care or go to the ER for worsening symptoms or concerns. Patient verbalized understanding of plan of care and is in agreement. ASSESSMENT/PLAN: 1. Bacterial sinusitis - ICD9: 473.9, 041.9, ICD10: J32.9, B96.89 - AMOXICILLIN 875 MG-POTASSIUM CLAVULANATE 125 MG TABLET Carla Soto APRN.CODING FILE CLERK documented in this encounter [facility] 06-13-2022 Miscellaneous Notes Forms Forwarded to nurse. Voice message was left for Duarte Phone # : [phone] [id number]. Requesting WILMA form be faxed to [phone] to update unable to return to work status. Chana Jimenez RN I spoke with Katelyn walker 04/25-follow up with emt dispatcher 07/02 Chana Jimenez RN General call : Full name of person calling: Duarte Relationship to patient: Phone # : [phone] [id number] Reason for call: wants to know if patient has a follow up appointment and wants to know if patient was released to return to work Patient of Dr. Andre documented in this encounter [facility] 05-24-2022 Miscellaneous Notes Ned Guerra MD P Neur Epilepsy Jes Guerra Message Pool the form she sent can not be completed without completing her evaluation with cardiology or PCP Ned Mancia M.D I spoke with Katelyn she was informed she must follow up with PCP or emt dispatcher before form can be completed. Chana Jimenez RN More documentation needed; Forwarded to nurse. I spoke with Katelyn, she is requesting to return to work 05/28. Can not go back to work until form is completed. Chana Jimenez RN General call : Full name of person calling: Katelyn Flynn Relationship to patient: self Phone # : [phone] Reason for call: Patient states the [employer] return to work form needed adjustments. Adjusted form has not been received. Please call back with status. Patient of Dr. Andre documented in this encounter [facility] 05-15-2022 Miscellaneous Notes Patient called for status of return to work form. Please call back [phone]. I spoke with Katelyn stated she will send in another form. return to work medical evaluation form need to state she will return to work on May 16. She will send another form requesting unable to work from - 05/15/2022 Chana Jimenez RN Patient called to check the status of forms. States that she should not be at work until forms are sent. Please call patient at [phone] documented in this encounter [facility] 05-10-2022 Miscellaneous Notes Received notice via [email or web address] that form/letter was signed by provider. Chana Jimenez RN I spoke with Katelyn, form is needed by Friday 05/12 Chana Jimenez RN Pt returning nurse call she can be reached at [phone] Call was made to Katelyn , no answer. Message was left requesting a return call. Chana Rose RN Patient returning Nurse call. Please call patient at [phone] Call was made to Katelyn , no answer. Message was left requesting a return call. Chana Rose RN 04/25/2022 [place] IMPRESSION: History suggestive of syncopal episode , possible convulsive syncope in the setting of pain. CT reported as normal. She has no risk factors for epilepsy. Discussed with the patient the need to compete this evaluation with EEG. If normal therapy for seizures will be deferred. Consult to cardiology is an option or she will follow up with PCP PLAN: EEG Do not drive until this evaluation is completed Call was made to Katelyn , no answer. Message was left requesting a return call. 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 Andre Forwarded to nurse. documented in this encounter [facility] 05-10-2022 Miscellaneous Notes I spoke with Katelyn she was informed EEG is normal and I recommend to follow up with cardiology. Chana Jimenez RN Per Dr. Andre please let the pt know that EEG is normal and I recommend to follow up with cardiology Kayla Barry APRN.SEJAL documented in this encounter [facility] 04-26-2022 Note HNO ID: [id number] Author: Ned Guerra MD Service: ? Author Type: Physician Type: Progress Notes Filed: 04/26/2022 9:21 AM Note Text: [facility] Patient Name: Katelyn CAMACHO Date of : 1995 INITIAL EPILEPSY CLINIC NOTE 04/25/2022 2:30 PM CHIEF COMPLAINT: New Patient HISTORY OF PRESENT ILLNESS Ms. Flynn is a 26 year old female seen in [facility] for initial consultation. We had a visit using: Garden Mate I received consent from the patient to perform the visit using this platform. There is no one accompanying the patient during today's visit. Age of onset: 26 years Seizure History and Evolution Patient with new onset spells that occurred 2 days ago. reports that prior to the episodes her ankle gave out, she was on pain and fell to the ground. told the patient that soon after she experienced an event during which her eyes rolled up, her body was shaking for about 15 seconds. She was unresponsive. After that she heard him yelling her name. She rolled over and she experienced another event, again she was shaking, unresponsive for 5 seconds. Confused for a short period of time. No urine incontinence. Prior to these 2 events she felt lightheadedness, she was sweating, she was told that she was paled. help her to sit up and went to the ED ([facility]) CT head was reported as normal. Takes Prozac for depression Total # of Current Anti-seizure Medications: 0 Number of seizure types: 1 Driving: Yes Lives Alone: No ED Visits in Last 3 Months: Yes Hospitalizations in Last 3 Months: No Current Vocation: works at a bank CURRENT OUTPATIENT ANTISEIZURE MEDICATIONS (as of the start of the encounter) None Prior Anti-seizure Therapies: Trial Adequacy: Max Daily Dose Achieved: Side Effects: Effectiveness: Comments: Comorbidities: Episode Description: SEIZURE TYPE 1: spells Loss of awareness: Duration: Frequency: Last occurred: Patient Entered Data: EPILEPSY SCORE 04/25/2022 11:05 AM 04/25/2022 11:01 AM PHQ-9 SCORE 4 [None-Minimal Depression] - SLOANE 2 SCORE 2 [Negative Anxiety Screen] - SLOANE 7 SCORE - - QOLIE-10 SCORE (0=worst; 100=best QoL - higher scores represent better function) 19 - LSSS SCORE (0- no seizures 100- most severe possible seizures) 45 - C-SSRS SCREEN - - On average, how many hours of sleep do you get in a 24-hour period? 6 - PROMIS Sleep Disturbance T-SCORE - 54 [within normal limits] Have you been diagnosed with Sleep Apnea? No - Seizure risk factors: Brain Tumor Unanswered CARE ADVOCATE Infections Unanswered Developmental Delay Unanswered Family history of seizures Unanswered Febrile Seizure Unanswered Complications Unanswered Stroke Unanswered Traumatic Brain Injury Unanswered Previous Epilepsy Evaluations Other caregivers: Primary Care Provider: No primary care provider on file. Current Outpatient Medications Medication Sig LIDOCAINE VISCOUS 2 % solution Take 15 mL by mouth every 4 hours as needed. sjxykhrnuuUDMAM-mpwxbx-emavkgcka (BMX 1:1:1) 1:1:1 liqd Take 5 mL by mouth four times daily. (Patient not taking: Reported on 02/23/2022) citalopram (CELEXA) 20 mg tablet benzonatate (TESSALON PERLES) 100 mg capsule Take 1 capsule by mouth three times daily as needed for cough. (Patient not taking: Reported on 02/23/2022) No current facility-administered medications for this visit. ALLERGIES Allergen Reactions Environmental Aller* Trees, grasses, weeds, ragweed Seasonal Allergies Other: See Comments Seasonal and Environmental Allergies Sinus problems and ect.. PAST MEDICAL HISTORY Diagnosis Date Allergic rhinitis, cause unspecified Allergic rhinitis anxiety Asthma exercise induced, no inhaler since 2014 Complication of anesthesia 4 attempts at epidural Diabetes, gestational Gestational hypertension gestational hypertension Herpes simplex Eye Left wrist fracture PMH - PAST MEDICAL HISTORY OF normal color vision PAST SURGICAL HISTORY Procedure Laterality Date PAST SURGICAL HISTORY OF wisdom teeth FAMILY HISTORY Problem Relation Age of Onset No Known Problems Mother Hypertension Father Lipids Father High Cholesterol Allergies Father PCN Diabetes Father Diabetes Paternal Grandfather Hypertension Paternal Grandmother Diabetes Paternal Grandmother Allergies Paternal Grandmother Heart Maternal Grandfather No Known Problems Maternal Grandmother Allergies Sister Allergies Brother Asthma Paternal Aunt Allergies Paternal Aunt Cancer Other Paternal Great-Grandfather other (chrosomal abnormality-stillborn) Sister Eczema Son SOCIAL HISTORY: -Lives in [place], [place] -Patient lives alone? No -Vocation: works at a [employer] -Functional status: independent in activities of daily living -Patient driv (more content not included)... [facility] 04-26-2022 History of Presen t illness Narrative [facility] Patient Name: Katelyn CAMACHO Date of : 1995 INITIAL EPILEPSY CLINIC NOTE 04/25/2022 2:30 PM CHIEF COMPLAINT: New Patient HISTORY OF PRESENT ILLNESS Ms. Flynn is a 26 year old female seen in [facility] for initial consultation. We had a visit using: Garden Mate I received consent from the patient to perform the visit using this platform. There is no one accompanying the patient during today's visit. Age of onset: 26 years Seizure History and Evolution Patient with new onset spells that occurred 2 days ago. reports that prior to the episodes her ankle gave out, she was on pain and fell to the ground. told the patient that soon after she experienced an event during which her eyes rolled up, her body was shaking for about 15 seconds. She was unresponsive. After that she heard him yelling her name. She rolled over and she experienced another event, again she was shaking, unresponsive for 5 seconds. Confused for a short period of time. No urine incontinence. Prior to these 2 events she felt lightheadedness, she was sweating, she was told that she was paled. help her to sit up and went to the ED ([facility]) CT head was reported as normal. Takes Prozac for depression Total # of Current Anti-seizure Medications: 0 Number of seizure types: 1 Driving: Yes Lives Alone: No ED Visits in Last 3 Months: Yes Hospitalizations in Last 3 Months: No Current Vocation: works at a bank CURRENT OUTPATIENT ANTISEIZURE MEDICATIONS (as of the start of the encounter) None Prior Anti-seizure Therapies: Trial Adequacy: Max Daily Dose Achieved: Side Effects: Effectiveness: Comments: Comorbidities: Episode Description: SEIZURE TYPE 1: spells Loss of awareness: Duration: Frequency: Last occurred: Patient Entered Data: EPILEPSY SCORE 04/25/2022 11:05 AM 04/25/2022 11:01 AM PHQ-9 SCORE 4 [None-Minimal Depression] - SLOANE 2 SCORE 2 [Negative Anxiety Screen] - SLOANE 7 SCORE - - QOLIE-10 SCORE (0=worst; 100=best QoL - higher scores represent better function) 19 - LSSS SCORE (0- no seizures 100- most severe possible seizures) 45 - C-SSRS SCREEN - - On average, how many hours of sleep do you get in a 24-hour period? 6 - PROMIS Sleep Disturbance T-SCORE - 54 [within normal limits] Have you been diagnosed with Sleep Apnea? No - Seizure risk factors: Brain Tumor Unanswered CARE ADVOCATE Infections Unanswered Developmental Delay Unanswered Family history of seizures Unanswered Febrile Seizure Unanswered Complications Unanswered Stroke Unanswered Traumatic Brain Injury Unanswered Previous Epilepsy Evaluations Other caregivers: Primary Care Provider: No primary care provider on file. Current Outpatient Medications Medication Sig LIDOCAINE VISCOUS 2 % solution Take 15 mL by mouth every 4 hours as needed. urbmyrrrfkNGXKM-vyzpdt-qcgobewpm (BMX 1:1:1) 1:1:1 liqd Take 5 mL by mouth four times daily. (Patient not taking: Reported on 02/23/2022) citalopram (CELEXA) 20 mg tablet benzonatate (TESSALON PERLES) 100 mg capsule Take 1 capsule by mouth three times daily as needed for cough. (Patient not taking: Reported on 02/23/2022) No current facility-administered medications for this visit. ALLERGIES Allergen Reactions Environmental Aller* Trees, grasses, weeds, ragweed Seasonal Allergies Other: See Comments Seasonal and Environmental Allergies Sinus problems and ect.. PAST MEDICAL HISTORY Diagnosis Date Allergic rhinitis, cause unspecified Allergic rhinitis anxiety Asthma exercise induced, no inhaler since 2014 Complication of anesthesia 4 attempts at epidural Diabetes, gestational Gestational hypertension gestational hypertension Herpes simplex Eye Left wrist fracture PMH - PAST MEDICAL HISTORY OF normal color vision PAST SURGICAL HISTORY Procedure Laterality Date PAST SURGICAL HISTORY OF wisdom teeth FAMILY HISTORY Problem Relation Age of Onset No Known Problems Mother Hypertension Father Lipids Father High Cholesterol Allergies Father PCN Diabetes Father Diabetes Paternal Grandfather Hypertension Paternal Grandmother Diabetes Paternal Grandmother Allergies Paternal Grandmother Heart Maternal Grandfather No Known Problems Maternal Grandmother Allergies Sister Allergies Brother Asthma Paternal Aunt Allergies Paternal Aunt Cancer Other Paternal Great-Grandfather other (chrosomal abnormality-stillborn) Sister Eczema Son SOCIAL HISTORY: -Lives in [place], [place] -Patient lives alone? No -Vocation: works at a bank -Functional status: independent in activities of daily living -Patient driving? Yes Review of Systems negative VITAL SIGNS: LMP 12/28/2020 General Examination: General Exam deferred IMPRESSION: History suggestive of syncopal episode , possible convulsive syncope in the setting of pain. CT reported as normal. She has no risk factors for epilepsy. Discussed with the patient the need to compete this evaluation with EEG. If normal therapy for seizures will be deferred. Consult to cardiology is an option or she will follow up with PCP PLAN: EEG Do not drive until this evaluation is completed Testing Ordered Routine EEG I discussed the risks, benefits and alternatives of the medical plan with the patient. Questions were answered. The patient agreed with the plan as discussed. I spent a total of 30 minutes on the date of the service which included [id number]-ig-whbs patient care. Ned Mancia M.D documented in this encounter [facility] 02-23-2022 Miscellaneous Notes Addended by: RADHA DICKINSON on: 02/23/2022 05:11 PM Modules accepted: Orders documented in this encounter [facility] 02-23-2022 History of Presen t illness Narrative This note was created using [employer]. Subjective Katelyn Flynn is a 26 year old female. HPI by patient: Katelyn is a 26 year old presenting to the office with the complaint of sore throat Started approximately 2 days ago Associated symptoms include sore throat Denies fever or chills Covid Immunization Dates Overdue - COVID-19 VACCINE (3 - Booster for Pfizer series) Overdue since 06/09/2021 04/14/2021 Imm Admin: COVID-19 vaccine, age 12+ yr (PFIZER-BIONTECH - MURPHY TOP) 03/24/2021 Imm Admin: COVID-19 vaccine, age 12+ yr (PFIZER-BIONTECH - PURPLE TOP) OTC nothing No antibiotic use in the last 60 days. ALLERGIES Environmental Aller* Comment:Trees, grasses, weeds, ragweed Seasonal Allergies Other: See Comments Comment:Seasonal and Environmental Allergies Sinus problems and ect.. Family History Reviewed Including Cardiac Diseases, Psychiatric Diseases, & Substance Abuse Problem: No Known Problems Relation: Mother Age of Onset: (Not Specified) Problem: Hypertension Relation: Father Age of Onset: (Not Specified) Problem: Lipids Relation: Father Age of Onset: (Not Specified) Comment: High Cholesterol Problem: Allergies Relation: Father Age of Onset: (Not Specified) Comment: PCN Problem: Diabetes Relation: Father Age of Onset: (Not Specified) Problem: Diabetes Relation: Paternal Grandfather Age of Onset: (Not Specified) Problem: Hypertension Relation: Paternal Grandmother Age of Onset: (Not Specified) Problem: Diabetes Relation: Paternal Grandmother Age of Onset: (Not Specified) Problem: Allergies Relation: Paternal Grandmother Age of Onset: (Not Specified) Problem: Heart Relation: Maternal Grandfather Age of Onset: (Not Specified) Problem: No Known Problems Relation: Maternal Grandmother Age of Onset: (Not Specified) Problem: Allergies Relation: Sister Age of Onset: (Not Specified) Problem: Allergies Relation: Brother Age of Onset: (Not Specified) Problem: Asthma Relation: Paternal Aunt Age of Onset: (Not Specified) Problem: Allergies Relation: Paternal Aunt Age of Onset: (Not Specified) Problem: Cancer Relation: Other Age of Onset: (Not Specified) Comment: Paternal Great-Grandfather Problem: other (chrosomal abnormality-stillborn) Relation: Sister Age of Onset: (Not Specified) Problem: Eczema Relation: Son Age of Onset: (Not Specified) Social History Tobacco Use Smoking status: Never Smokeless tobacco: Never Vaping Use Vaping Use: Never used Alcohol use: No Drug use: No Review of Systems Constitutional: Negative for chills and fever. HENT: Positive for sore throat. Negative for congestion, ear pain and rhinorrhea. Respiratory: Negative for cough. Cardiovascular: Negative for chest pain. Allergic/Immunologic: Negative for immunocompromised state. Hematological: Negative for adenopathy. Objective LMP 12/28/2020 Physical Exam Vitals and nursing note reviewed. HENT: Right Ear: Tympanic membrane and ear canal normal. Left Ear: Tympanic membrane and ear canal normal. Nose: Nose normal. Mouth/Throat: Pharynx: Uvula midline. Oropharyngeal exudate and posterior oropharyngeal erythema present. Cardiovascular: Rate and Rhythm: Normal rate and regular rhythm. Heart sounds: Normal heart sounds. Pulmonary: Effort: Pulmonary effort is normal. Breath sounds: Normal breath sounds. Lymphadenopathy: Cervical: No cervical adenopathy. Skin: General: Skin is warm and dry. Neurological: Mental Status: She is alert and oriented to person, place, and time. Assessment and Plan ASSESSMENT/PLAN: 1. Strep throat - ICD9: 034.0, ICD10: J02.0 - suspect strep - Rapid Strep positive in the office today - Discussed supportive care treatment with fluids, rest and analgesia. - CEPHALEXIN 500 MG CAPSULE - CONSULT TO ENT - LIDOCAINE HCL 2 % MUCOSAL SOLUTION Radha Dickinson APRN.CNP Medical Decision Making: Problems: Moderate: New problem with uncertain prognosis Data: Unique test(s) ordered: 1 Risk: Moderate: Drug management Medical Decision Making Level: 4 - Moderate This patient encounter involved the screening or treatment of novel coronavirus infection (COVID-19). documented in this encounter [facility] 02-05-2022 Instructions Radha Dickinson APRN.CNP - 02/05/2022 8:43 AM EST [facility] PATIENT INFO PHARYNGITIS OVERVIEW A sore throat (pharyngitis) is a common problem, and usually is caused by a viral or bacterial infection. Sore throat usually resolves on its own without complications in adults, although it is important to know when to seek medical attention. Viruses can cause a sore throat and other upper respiratory infections, such as the common cold. Sore throat caused by a virus is not treated with antibiotics, but instead may be treated with rest, pain medication, and other therapies aimed at relieving symptoms. Strep throat is a particular kind of pharyngitis that is caused by a bacterium known as group A streptococcus (GAS). Strep throat is treated with a course of antibiotics. SORE THROAT SYMPTOMS Viral pharyngitis - Most people with a sore throat have a virus. The most common viruses are those that cause upper respiratory infections, such as the common cold. Symptoms of a viral infection can include: A runny or congested nose Irritation or redness of the eyes Cough, hoarseness, or soreness in the roof of the mouth Some viruses cause a fever and can make you feel quite ill. Strep throat - Approximately 10 percent of adults with a sore throat have strep throat. Signs and symptoms of strep throat include the following: Pain in the throat Fever (temperature greater than 100.4 F or 38 C) Enlarged lymph glands in the neck No cough, runny nose, or irritation/redness of the eyes When to seek urgent help - See your doctor or nurse immediately if you have a sore throat along with any of the following: Difficulty breathing Skin rash Drooling because you cannot swallow Swelling of the neck or tongue Stiff neck or difficulty opening the mouth SORE THROAT DIAGNOSIS Most people with a sore throat get better without treatment. There is no specific treatment for a sore throat caused by usual cold viruses. Is it strep or not? - A combination of symptoms (fever, enlarged glands in the neck, white patches on your tonsils, and no cough) can help in determining if you have strep. If you have two or more symptoms, a rapid test or throat culture may be done. People with fewer than two symptoms usually do not need testing or treatment for strep throat. Rapid test - The rapid test determines if there are streptococcus bacteria on a throat swab. The test can be done in a clinician's office and the results are available within a few minutes. The test is accurate in most cases, although a small percentage of tests are falsely negative (the bacteria are present but the test is negative). Strep Confirmatory Test - involves swabbing the throat, sending the swab to a laboratory, and waiting 24 to 48 hours for the results. These Strep PCR tests are slightly more accurate than the rapid test. TREATMENT OF SORE THROAT Sore throat treatment - Antibiotics do not help throat pain caused by a virus and are not recommended. Sore throat caused by viral infections usually lasts four to five days. During this time, treatments to reduce pain may be helpful. Several therapies can help to relieve throat pain. Pain medication - You can treat your throat pain with a mild pain reliever such as acetaminophen (Tylenol ) or a non -steroidal anti-inflammatory agent such as ibuprofen or naproxen (Motrin or Aleve ). Oral rinses - Salt water gargles are an effective treatment for throat pain. It is not clear that salt water works to relieve pain, but it is unlikely to be harmful. Most recipes suggest 1/4 to 1/2 teaspoon of salt per one cup (8 ounces) of warm water. Sprays - Sprays containing topical anesthetics ( benzocaine, phenol) are available to treat sore throat. However, such sprays are no more effective than sucking on hard candy. Lozenges - A variety of lozenges (cough drops) are available to treat throat pain or relieve dryness. However, it is not clear that lozenges work any better than other forms of hard candy, which are generally less expensive. Other treatments - Other treatments that may help with throat pain include increase fluid intake and rest, sipping warm beverages (eg, honey or lemon tea, chicken soup), cold beverages, or eating cold or frozen desserts (eg, ice cream, popsicles).Replace your toothbrush, it may be harboring germs. Until the illness is resolved, do not share anything by mouth. Strep throat - Penicillin, or an antibiotic related to penicillin, is the treatment of choice for strep throat. A one time injection of penicillin is also available. People who are allergic to penicillin are given an alternate antibiotic. It is important to finish the entire course of treatment to completely eliminate the infection. If symptoms do not begin to improve or worsen by three days of antibiotic treatment, you should see your primary care provider. Return to work/school - If you have been diagnosed with strep throat, stay home from work or school until you have completed 24 hours of antibiotics. Within 24 hours of beginning antibiotic treatment, you will feel better and will be less contagious. If you have a sore throat (not diagnosed as strep), you may participate in your usual activities as soon as you feel well. What to do if symptoms don't improve:- If symptoms do not begin to improve within 5 to 7 days you should see your primary care provider. documented in this encounter [facility] 02-05-2022 History of Presen t illness Narrative This note was created using [employer]. Subjective Katelyn Flynn is a 26 year old female. HPI by patient: Katelyn is a 26 year old presenting to the office with the complaint of sore throat Started approximately Saturday Associated symptoms include sore throat, congested Denies fever or chills Vaccinated for influenza: no Covid Immunization Dates Overdue - COVID-19 VACCINE (3 - Booster for Pfizer series) Overdue since 06/09/2021 04/14/2021 Imm Admin: COVID-19 vaccine, age 12+ yr (PFIZER-BIONTECH - [place] TOP) 03/24/2021 Imm Admin: COVID-19 vaccine, age 12+ yr (PFIZER-BIONTECH - PURPLE TOP) Personal history of Covid: no Flu/RSV contacts: no Strep contacts: no Sick contacts: no Covid + contacts: no Travel in the last 14 days: no Smoking history/second hand smoke: no OTC nothing No antibiotic use in the last 60 days. ALLERGIES Environmental Aller* Comment:Trees, grasses, weeds, ragweed Seasonal Allergies Other: See Comments Comment:Seasonal and Environmental Allergies Sinus problems and ect.. Family History Reviewed Including Cardiac Diseases, Psychiatric Diseases, & Substance Abuse Problem: No Known Problems Relation: Mother Age of Onset: (Not Specified) Problem: Hypertension Relation: Father Age of Onset: (Not Specified) Problem: Lipids Relation: Father Age of Onset: (Not Specified) Comment: High Cholesterol Problem: Allergies Relation: Father Age of Onset: (Not Specified) Comment: PCN Problem: Diabetes Relation: Father Age of Onset: (Not Specified) Problem: Diabetes Relation: Paternal Grandfather Age of Onset: (Not Specified) Problem: Hypertension Relation: Paternal Grandmother Age of Onset: (Not Specified) Problem: Diabetes Relation: Paternal Grandmother Age of Onset: (Not Specified) Problem: Allergies Relation: Paternal Grandmother Age of Onset: (Not Specified) Problem: Heart Relation: Maternal Grandfather Age of Onset: (Not Specified) Problem: No Known Problems Relation: Maternal Grandmother Age of Onset: (Not Specified) Problem: Allergies Relation: Sister Age of Onset: (Not Specified) Problem: Allergies Relation: Brother Age of Onset: (Not Specified) Problem: Asthma Relation: Paternal Aunt Age of Onset: (Not Specified) Problem: Allergies Relation: Paternal Aunt Age of Onset: (Not Specified) Problem: Cancer Relation: Other Age of Onset: (Not Specified) Comment: Paternal Great-Grandfather Problem: other (chrosomal abnormality-stillborn) Relation: Sister Age of Onset: (Not Specified) Problem: Eczema Relation: Son Age of Onset: (Not Specified) Social History Tobacco Use Smoking status: Never Smokeless tobacco: Never Vaping Use Vaping Use: Never used Alcohol use: No Drug use: No Review of Systems Constitutional: Negative for chills and fever. HENT: Positive for congestion and sore throat. Negative for ear pain and rhinorrhea. Respiratory: Negative for cough. Cardiovascular: Negative for chest pain. Allergic/Immunologic: Negative for immunocompromised state. Hematological: Negative for adenopathy. Objective [facility] 12/28/2020 Physical Exam Vitals and nursing note reviewed. HENT: Right Ear: Tympanic membrane and ear canal normal. Left Ear: Tympanic membrane and ear canal normal. Nose: Nose normal. Mouth/Throat: Pharynx: Uvula midline. Cardiovascular: Rate and Rhythm: Normal rate and regular rhythm. Heart sounds: Normal heart sounds. Pulmonary: Effort: Pulmonary effort is normal. Breath sounds: Normal breath sounds. Lymphadenopathy: Cervical: No cervical adenopathy. Skin: General: Skin is warm and dry. Neurological: Mental Status: She is alert and oriented to person, place, and time. Assessment and Plan ASSESSMENT/PLAN: 1. Strep throat - ICD9: 034.0, ICD10: J02.0 - suspect strep - Rapid Strep positive in the office today - Discussed supportive care treatment with fluids, rest and analgesia. - AMOXICILLIN 500 MG CAPSULE - [id number] E ([facility]) Radha Dickinson APRN.CNP Medical Decision Making: Problems: Moderate: New problem with uncertain prognosis Data: Unique test(s) ordered: 1 Risk: Moderate: Drug management Medical Decision Making Level: 4 - Moderate This patient encounter involved the screening or treatment of novel coronavirus infection (COVID-19). documented in this encounter [facility] 11-10-2021 Instructions Maude Bush PA-C - 11/10/2021 5:06 PM EDT A cough is your body's response to something that bothers your throat or airways. Many things can cause a cough. You might cough because of a cold or the flu, bronchitis, or asthma. Smoking, postnasal drip, allergies, and stomach acid that backs up into your throat also can cause coughs. A cough is a symptom, not a disease. Most coughs stop when the cause, such as a cold, goes away. You can take a few steps at home to cough less and feel better. Follow-up care is a larry part of your treatment and safety. Be sure to make and go to all appointments, and call your doctor if you are having problems. It's also a good idea to know your test results and keep a list of the medicines you take. How can you care for yourself at home? - Drink lots of water and other fluids. This helps thin the mucus and soothes a dry or sore throat. Honey or lemon juice in hot water or tea may ease a dry cough. - Take cough medicine as directed by your doctor. - Prop up your head on pillows to help you breathe and ease a dry cough. - Try cough drops or hard candy to soothe a dry or sore throat. - Do not smoke. Avoid secondhand smoke. If you need help quitting, talk to your doctor about stop-smoking programs and medicines. These can increase your chances of quitting for good. When should you call for help? Call 911 anytime you think you may need emergency care. For example, call if: You have severe trouble breathing. Call your doctor now or seek immediate medical care if: You cough up blood. You have new or worse trouble breathing. You have a new or higher fever. You have a new rash. Watch closely for changes in your health, and be sure to contact your doctor if: You cough more deeply or more often, especially if you notice more mucus or a change in the color of your mucus. You have new symptoms, such as a sore throat, an earache, or sinus pain. You do not get better as expected. documented in this encounter [facility] 11-10-2021 History of Presen t illness Narrative Subjective Katelyn Flynn is a 26 year old female with past medical history of asthma who presents to [facility] today for evaluation of cough and nasal congestion x2 weeks. She states that the cough has been getting progressively worse. She states that it is a dry cough. She has not had any fevers. No known exposure to COVID-19 or influenza. She has been using cough drops with minimal relief. Review of Systems Constitutional: Negative for chills, diaphoresis and fever. HENT: Positive for congestion. Negative for ear pain and sore throat. Eyes: Negative for discharge and redness. Respiratory: Positive for cough. Skin: Negative for rash and wound. Neurological: Negative for weakness and headaches. All other systems reviewed and are negative. Objective BP 127/77 Pulse 79 Resp 18 Ht 170.2 cm (5' 7 ) Wt 117.9 kg (260 lb) LMP 12/28/2020 SpO2 97% BMI 40.72 kg/m Physical Exam Vitals reviewed. Constitutional: General: She is not in acute distress. Appearance: Normal appearance. She is normal weight. She is not ill-appearing or toxic-appearing. Comments: The patient appears to be non-toxic, in no acute distress, and resting comfortably on a chair. HENT: Head: Normocephalic and atraumatic. Eyes: Extraocular Movements: Extraocular movements intact. Cardiovascular: Rate and Rhythm: Normal rate and regular rhythm. Heart sounds: Normal heart sounds. No murmur heard. No friction rub. No gallop. Pulmonary: Effort: Pulmonary effort is normal. No respiratory distress. Breath sounds: Normal breath sounds. No wheezing. Musculoskeletal: General: Normal range of motion. Cervical back: Normal range of motion. Skin: General: Skin is warm and dry. Findings: No erythema or rash. Neurological: General: No focal deficit present. Mental Status: She is alert and oriented to person, place, and time. Mental status is at baseline. Psychiatric: Mood and Affect: Mood normal. Behavior: Behavior normal. Thought Content: Thought content normal. Assessment and Plan Is applied to auscultation bilaterally. As patient symptoms have been persistent and worsening for 2 weeks, she will be treated with antibiotics. Patient counseled regarding suspected diagnosis and given a prescription for doxycycline. Patient also given prescriptions for prednisone and Tessalon Perles. Patient advised to follow-up with a primary care provider as needed for any new or worsening symptoms. ASSESSMENT/PLAN: 1. Acute cough - ICD9: 786.2, ICD10: R05.1 (primary diagnosis) - BENZONATATE 100 MG CAPSULE - PREDNISONE 20 MG TABLET 2. Nasal congestion - ICD9: 478.19, ICD10: R09.81 Medical Decision Making: Problems: Low: Acute, uncomplicated illness or injury Risk: Minimal: Minimal risk from testing/treatment Moderate: Drug management Medical Decision Making Level: 3 - Low I spent a total of 20 minutes on the date of the service which included preparing to see the patient, [id number] patient care, completing clinical documentation, performing a medically appropriate examination, counseling and educating the patient/family/caregiver, and ordering medications, tests, or procedures. documented in this encounter [facility] documented as of this encounter (statuses as of 11/10/2021) [facility] History of Past illness Narrative* Problem Noted Date Resolved Date History of gestational hypertension 10/21/2018 05/22/2019 Overview: 10/29/18-Seen in ED on 10/27/18 for chest pain. EKG and CXR normal. BP 143/85. BP today 112/70 and feeling fine. Will take BP at home, if elevated 140/90 will call. Anna Sadler APRN.CNM 10/21/18 - Start aspirin at 12 weeks. Consider baseline labs. Barbara Guerra MD History of depression 10/09/2018 05/22/2019 Overview: 10/09/2018.Pt has a history of depression that was never diagnosed nor reported. She also states she has anxiety. Discussed increased risks of depression during and and importance of reporting the development or worsening of symptoms should they occur.Pt denies ever having any suicidal thoughts or tendencies or thoughts of hurting others.TKRN Uncertain dates, antepartum, unspecified trimest er 10/09/2018 05/22/2019 Overview: 10/21/18 - need to finalize EDC after NT - Barbara Guerra MD 10/09/2018 She is unsure of her LMP. Negative test mid-August. Positive in home test 2 weeks ago. TKRN History of gestational diabe leonila in prior , currently 10/09/2018 05/22/2019 Overview: 10/09/2018Patient's sister was stillborn due to anecephaly and a chromosomal disorder (patient unsure of specifics). FOB's 1st cousin with Down Syndrome. TKRN. History of anxiety 01/03/2017 10/21/2018 Overview: 01/03/2017Patient has a history of anxiety that has never been diagnosed, never treated with medication. She denies ever having depression. TKRN Family history of defects 01/03/2017 10/01/2017 Overview: 01/03/2017Patient's sister was stillborn due to anencephaly. FOB's 1st cousin with Down Syndrome.TKRN Patient requested diagnostic testing 01/03/2017 10/01/2017 Overview: 10/09/2018Patient desires nuchal ultrasound . TKRN documented as of this encounter (statuses as of 02/05/2022) [facility] History of Past illness Narrative* Problem Noted Date Resolved Date History of gestational hypertension 10/21/2018 05/22/2019 Overview: 10/29/18-Seen in ED on 10/27/18 for chest pain. EKG and CXR normal. BP 143/85. BP today 112/70 and feeling fine. Will take BP at home, if elevated 140/90 will call. Anna Sadler APRN.CNM 10/21/18 - Start aspirin at 12 weeks. Consider baseline labs. Barbara Guerra MD History of depression 10/09/2018 05/22/2019 Overview: 10/09/2018.Pt has a history of depression that was never diagnosed nor reported. She also states she has anxiety. Discussed increased risks of depression during and and importance of reporting the development or worsening of symptoms should they occur.Pt denies ever having any suicidal thoughts or tendencies or thoughts of hurting others.TKRN Uncertain dates, antepartum, unspecified trimest er 10/09/2018 05/22/2019 Overview: 10/21/18 - need to finalize EDC after NT - Barbara Guerra MD 10/09/2018 She is unsure of her LMP. Negative test mid-August. Positive in home test 2 weeks ago. TKRN History of gestational diabe leonila in prior , currently 10/09/2018 05/22/2019 Overview: 10/09/2018Patient's sister was stillborn due to anecephaly and a chromosomal disorder (patient unsure of specifics). FOB's 1st cousin with Down Syndrome. TKRN. History of anxiety 01/03/2017 10/21/2018 Overview: 01/03/2017Patient has a history of anxiety that has never been diagnosed, never treated with medication. She denies ever having depression. TKRN Family history of defects 01/03/2017 10/01/2017 Overview: 01/03/2017Patient's sister was stillborn due to anencephaly. FOB's 1st cousin with Down Syndrome.TKRN Patient requested diagnostic testing 01/03/2017 10/01/2017 Overview: 10/09/2018Patient desires nuchal ultrasound . TKRN documented as of this encounter (statuses as of 02/23/2022) [facility] History of Past illness Narrative* Problem Noted Date Resolved Date History of gestational hypertension 10/21/2018 05/22/2019 Overview: 10/29/18-Seen in ED on 10/27/18 for chest pain. EKG and CXR normal. BP 143/85. BP today 112/70 and feeling fine. Will take BP at home, if elevated 140/90 will call. Anna Sadler APRN.CINDY 10/21/18 - Start aspirin at 12 weeks. Consider baseline labs. Barbara Guerra MD History of depression 10/09/2018 05/22/2019 Overview: 10/09/2018.Pt has a history of depression that was never diagnosed nor reported. She also states she has anxiety. Discussed increased risks of depression during and and importance of reporting the development or worsening of symptoms should they occur.Pt denies ever having any suicidal thoughts or tendencies or thoughts of hurting others.TKRN Uncertain dates, antepartum, unspecified trimest er 10/09/2018 05/22/2019 Overview: 10/21/18 - need to finalize EDC after NT - Barbara Guerra MD 10/09/2018 She is unsure of her LMP. Negative test mid-August. Positive in home test 2 weeks ago. TKRN History of gestational diabe leonila in prior , currently 10/09/2018 05/22/2019 Overview: 10/09/2018Patient's sister was stillborn due to anecephaly and a chromosomal disorder (patient unsure of specifics). FOB's 1st cousin with Down Syndrome. TKRN. History of anxiety 01/03/2017 10/21/2018 Overview: 01/03/2017Patient has a history of anxiety that has never been diagnosed, never treated with medication. She denies ever having depression. TKRN Family history of defects 01/03/2017 10/01/2017 Overview: 01/03/2017Patient's sister was stillborn due to anencephaly. FOB's 1st cousin with Down Syndrome.TKRN Patient requested diagnostic testing 01/03/2017 10/01/2017 Overview: 10/09/2018Patient desires nuchal ultrasound . TKRN documented as of this encounter (statuses as of 04/26/2022) [facility] History of Past illness Narrative* Problem Noted Date Resolved Date History of gestational hypertension 10/21/2018 05/22/2019 Overview: 10/29/18-Seen in ED on 10/27/18 for chest pain. EKG and CXR normal. BP 143/85. BP today 112/70 and feeling fine. Will take BP at home, if elevated 140/90 will call. Anna Sadler APRN.CNM 10/21/18 - Start aspirin at 12 weeks. Consider baseline labs. Barbara Guerra MD History of depression 10/09/2018 05/22/2019 Overview: 10/09/2018.Pt has a history of depression that was never diagnosed nor reported. She also states she has anxiety. Discussed increased risks of depression during and and importance of reporting the development or worsening of symptoms should they occur.Pt denies ever having any suicidal thoughts or tendencies or thoughts of hurting others.TKRN Uncertain dates, antepartum, unspecified trimest er 10/09/2018 05/22/2019 Overview: 10/21/18 - need to finalize EDC after NT - Barbara Guerra MD 10/09/2018 She is unsure of her LMP. Negative test mid-August. Positive in home test 2 weeks ago. TKRN History of gestational diabe leonila in prior , currently 10/09/2018 05/22/2019 Overview: 10/09/2018Patient's sister was stillborn due to anecephaly and a chromosomal disorder (patient unsure of specifics). FOB's 1st cousin with Down Syndrome. TKRN. History of anxiety 01/03/2017 10/21/2018 Overview: 01/03/2017Patient has a history of anxiety that has never been diagnosed, never treated with medication. She denies ever having depression. TKRN Family history of defects 01/03/2017 10/01/2017 Overview: 01/03/2017Patient's sister was stillborn due to anencephaly. FOB's 1st cousin with Down Syndrome.TKRN Patient requested diagnostic testing 01/03/2017 10/01/2017 Overview: 10/09/2018Patient desires nuchal ultrasound . TKRN documented as of this encounter (statuses as of 05/10/2022) [facility] History of Past illness Narrative* Problem Noted Date Resolved Date History of gestational hypertension 10/21/2018 05/22/2019 Overview: 10/29/18-Seen in ED on 10/27/18 for chest pain. EKG and CXR normal. BP 143/85. BP today 112/70 and feeling fine. Will take BP at home, if elevated 140/90 will call. Anna Sadler APRN.CN 10/21/18 - Start aspirin at 12 weeks. Consider baseline labs. Barbara Guerra MD History of depression 10/09/2018 05/22/2019 Overview: 10/09/2018.Pt has a history of depression that was never diagnosed nor reported. She also states she has anxiety. Discussed increased risks of depression during and and importance of reporting the development or worsening of symptoms should they occur.Pt denies ever having any suicidal thoughts or tendencies or thoughts of hurting others.TKRN Uncertain dates, antepartum, unspecified trimest er 10/09/2018 05/22/2019 Overview: 10/21/18 - need to finalize EDC after NT - Barbara Guerra MD 10/09/2018 She is unsure of her LMP. Negative test mid-August. Positive in home test 2 weeks ago. TKRN History of gestational diabe leonila in prior , currently 10/09/2018 05/22/2019 Overview: 10/09/2018Patient's sister was stillborn due to anecephaly and a chromosomal disorder (patient unsure of specifics). FOB's 1st cousin with Down Syndrome. TKRN. History of anxiety 01/03/2017 10/21/2018 Overview: 01/03/2017Patient has a history of anxiety that has never been diagnosed, never treated with medication. She denies ever having depression. TKRN Family history of defects 01/03/2017 10/01/2017 Overview: 01/03/2017Patient's sister was stillborn due to anencephaly. FOB's 1st cousin with Down Syndrome.TKRN Patient requested diagnostic testing 01/03/2017 10/01/2017 Overview: 10/09/2018Patient desires nuchal ultrasound . TKRN documented as of this encounter (statuses as of 05/15/2022) [facility] History of Past illness Narrative* Problem Noted Date Resolved Date History of gestational hypertension 10/21/2018 05/22/2019 Overview: 10/29/18-Seen in ED on 10/27/18 for chest pain. EKG and CXR normal. BP 143/85. BP today 112/70 and feeling fine. Will take BP at home, if elevated 140/90 will call. Anna Sadler APRN.CINDY 10/21/18 - Start aspirin at 12 weeks. Consider baseline labs. Barbara Guerra MD History of depression 10/09/2018 05/22/2019 Overview: 10/09/2018.Pt has a history of depression that was never diagnosed nor reported. She also states she has anxiety. Discussed increased risks of depression during and and importance of reporting the development or worsening of symptoms should they occur.Pt denies ever having any suicidal thoughts or tendencies or thoughts of hurting others.TKRN Uncertain dates, antepartum, unspecified trimest er 10/09/2018 05/22/2019 Overview: 10/21/18 - need to finalize EDC after NT - Barbara Guerra MD 10/09/2018 She is unsure of her LMP. Negative test mid-August. Positive in home test 2 weeks ago. TKRN History of gestational diabe leonila in prior , currently 10/09/2018 05/22/2019 Overview: 10/09/2018Patient's sister was stillborn due to anecephaly and a chromosomal disorder (patient unsure of specifics). FOB's 1st cousin with Down Syndrome. TKRN. History of anxiety 01/03/2017 10/21/2018 Overview: 01/03/2017Patient has a history of anxiety that has never been diagnosed, never treated with medication. She denies ever having depression. TKRN Family history of defects 01/03/2017 10/01/2017 Overview: 01/03/2017Patient's sister was stillborn due to anencephaly. FOB's 1st cousin with Down Syndrome.TKRN Patient requested diagnostic testing 01/03/2017 10/01/2017 Overview: 10/09/2018Patient desires nuchal ultrasound . TKRN documented as of this encounter (statuses as of 05/25/2022) [facility] History of Past illness Narrative* Problem Noted Date Resolved Date History of gestational hypertension 10/21/2018 05/22/2019 Overview: 10/29/18-Seen in ED on 10/27/18 for chest pain. EKG and CXR normal. BP 143/85. BP today 112/70 and feeling fine. Will take BP at home, if elevated 140/90 will call. Anna Sadler APRN.CINDY 10/21/18 - Start aspirin at 12 weeks. Consider baseline labs. Barbara Guerra MD History of depression 10/09/2018 05/22/2019 Overview: 10/09/2018.Pt has a history of depression that was never diagnosed nor reported. She also states she has anxiety. Discussed increased risks of depression during and and importance of reporting the development or worsening of symptoms should they occur.Pt denies ever having any suicidal thoughts or tendencies or thoughts of hurting others.TKRN Uncertain dates, antepartum, unspecified trimest er 10/09/2018 05/22/2019 Overview: 10/21/18 - need to finalize EDC after NT - Barbara Guerra MD 10/09/2018 She is unsure of her LMP. Negative test mid-August. Positive in home test 2 weeks ago. TKRN History of gestational diabe leonila in prior , currently 10/09/2018 05/22/2019 Overview: 10/09/2018Patient's sister was stillborn due to anecephaly and a chromosomal disorder (patient unsure of specifics). FOB's 1st cousin with Down Syndrome. TKRN. History of anxiety 01/03/2017 10/21/2018 Overview: 01/03/2017Patient has a history of anxiety that has never been diagnosed, never treated with medication. She denies ever having depression. TKRN Family history of defects 01/03/2017 10/01/2017 Overview: 01/03/2017Patient's sister was stillborn due to anencephaly. FOB's 1st cousin with Down Syndrome.TKRN Patient requested diagnostic testing 01/03/2017 10/01/2017 Overview: 10/09/2018Patient desires nuchal ultrasound . TKRN documented as of this encounter (statuses as of 06/13/2022) [facility] History of Past illness Narrative* Problem Noted Date Resolved Date History of gestational hypertension 10/21/2018 05/22/2019 Overview: 10/29/18-Seen in ED on 10/27/18 for chest pain. EKG and CXR normal. BP 143/85. BP today 112/70 and feeling fine. Will take BP at home, if elevated 140/90 will call. Anna Sadler APRN.CNM 10/21/18 - Start aspirin at 12 weeks. Consider baseline labs. Barbara Guerra MD History of depression 10/09/2018 05/22/2019 Overview: 10/09/2018.Pt has a history of depression that was never diagnosed nor reported. She also states she has anxiety. Discussed increased risks of depression during and and importance of reporting the development or worsening of symptoms should they occur.Pt denies ever having any suicidal thoughts or tendencies or thoughts of hurting others.TKRN Uncertain dates, antepartum, unspecified trimest er 10/09/2018 05/22/2019 Overview: 10/21/18 - need to finalize EDC after NT - Barbara Guerra MD 10/09/2018 She is unsure of her LMP. Negative test mid-August. Positive in home test 2 weeks ago. TKRN History of gestational diabe leonila in prior , currently 10/09/2018 05/22/2019 Overview: 10/09/2018Patient's sister was stillborn due to anecephaly and a chromosomal disorder (patient unsure of specifics). FOB's 1st cousin with Down Syndrome. TKRN. History of anxiety 01/03/2017 10/21/2018 Overview: 01/03/2017Patient has a history of anxiety that has never been diagnosed, never treated with medication. She denies ever having depression. TKRN Family history of defects 01/03/2017 10/01/2017 Overview: 01/03/2017Patient's sister was stillborn due to anencephaly. FOB's 1st cousin with Down Syndrome.TKRN Patient requested diagnostic testing 01/03/2017 10/01/2017 Overview: 10/09/2018Patient desires nuchal ultrasound . TKRN documented as of this encounter (statuses as of 06/20/2022) [facility] History of Past illness Narrative* Problem Noted Date Resolved Date History of gestational hypertension 10/21/2018 05/22/2019 Overview: 10/29/18-Seen in ED on 10/27/18 for chest pain. EKG and CXR normal. BP 143/85. BP today 112/70 and feeling fine. Will take BP at home, if elevated 140/90 will call. Anna Sadler APRN.CNM 10/21/18 - Start aspirin at 12 weeks. Consider baseline labs. Barbara Guerra MD History of depression 10/09/2018 05/22/2019 Overview: 10/09/2018.Pt has a history of depression that was never diagnosed nor reported. She also states she has anxiety. Discussed increased risks of depression during and and importance of reporting the development or worsening of symptoms should they occur.Pt denies ever having any suicidal thoughts or tendencies or thoughts of hurting others.TKRN Uncertain dates, antepartum, unspecified trimest er 10/09/2018 05/22/2019 Overview: 10/21/18 - need to finalize EDC after NT - Barbara Guerra MD 10/09/2018 She is unsure of her LMP. Negative test mid-August. Positive in home test 2 weeks ago. TKRN History of gestational diabe leonila in prior , currently 10/09/2018 05/22/2019 Overview: 10/09/2018Patient's sister was stillborn due to anecephaly and a chromosomal disorder (patient unsure of specifics). FOB's 1st cousin with Down Syndrome. TKRN. History of anxiety 01/03/2017 10/21/2018 Overview: 01/03/2017Patient has a history of anxiety that has never been diagnosed, never treated with medication. She denies ever having depression. TKRN Family history of defects 01/03/2017 10/01/2017 Overview: 01/03/2017Patient's sister was stillborn due to anencephaly. FOB's 1st cousin with Down Syndrome.TKRN Patient requested diagnostic testing 01/03/2017 10/01/2017 Overview: 10/09/2018Patient desires nuchal ultrasound . TKRN documented as of this encounter (statuses as of 07/05/2022) [facility] History of Past illness Narrative* Problem Noted Date Resolved Date History of gestational hypertension 10/21/2018 05/22/2019 Overview: 10/29/18-Seen in ED on 10/27/18 for chest pain. EKG and CXR normal. BP 143/85. BP today 112/70 and feeling fine. Will take BP at home, if elevated 140/90 will call. Anna Sadler APRN.CNM 10/21/18 - Start aspirin at 12 weeks. Consider baseline labs. Barbara Guerra MD History of depression 10/09/2018 05/22/2019 Overview: 10/09/2018.Pt has a history of depression that was never diagnosed nor reported. She also states she has anxiety. Discussed increased risks of depression during and and importance of reporting the development or worsening of symptoms should they occur.Pt denies ever having any suicidal thoughts or tendencies or thoughts of hurting others.TKRN Uncertain dates, antepartum, unspecified trimest er 10/09/2018 05/22/2019 Overview: 10/21/18 - need to finalize EDC after NT - Barbara Guerra MD 10/09/2018 She is unsure of her LMP. Negative test mid-August. Positive in home test 2 weeks ago. TKRN History of gestational diabe leonila in prior , currently 10/09/2018 05/22/2019 Overview: 10/09/2018Patient's sister was stillborn due to anecephaly and a chromosomal disorder (patient unsure of specifics). FOB's 1st cousin with Down Syndrome. TKRN. History of anxiety 01/03/2017 10/21/2018 Overview: 01/03/2017Patient has a history of anxiety that has never been diagnosed, never treated with medication. She denies ever having depression. TKRN Family history of defects 01/03/2017 10/01/2017 Overview: 01/03/2017Patient's sister was stillborn due to anencephaly. FOB's 1st cousin with Down Syndrome.TKRN Patient requested diagnostic testing 01/03/2017 10/01/2017 Overview: 10/09/2018Patient desires nuchal ultrasound . TKRN documented as of this encounter (statuses as of 07/10/2022) [facility] History of Past illness Narrative* Problem Noted Date Resolved Date History of gestational hypertension 10/21/2018 05/22/2019 Overview: 10/29/18-Seen in ED on 10/27/18 for chest pain. EKG and CXR normal. BP 143/85. BP today 112/70 and feeling fine. Will take BP at home, if elevated 140/90 will call. Anna Sadler APRN.CINDY 10/21/18 - Start aspirin at 12 weeks. Consider baseline labs. Barbara Guerra MD History of depression 10/09/2018 05/22/2019 Overview: 10/09/2018.Pt has a history of depression that was never diagnosed nor reported. She also states she has anxiety. Discussed increased risks of depression during and and importance of reporting the development or worsening of symptoms should they occur.Pt denies ever having any suicidal thoughts or tendencies or thoughts of hurting others.TKRN Uncertain dates, antepartum, unspecified trimest er 10/09/2018 05/22/2019 Overview: 10/21/18 - need to finalize EDC after NT - Barbara Guerra MD 10/09/2018 She is unsure of her LMP. Negative test mid-August. Positive in home test 2 weeks ago. TKRN History of gestational diabe leonila in prior , currently 10/09/2018 05/22/2019 Overview: 10/09/2018Patient's sister was stillborn due to anecephaly and a chromosomal disorder (patient unsure of specifics). FOB's 1st cousin with Down Syndrome. TKRN. History of anxiety 01/03/2017 10/21/2018 Overview: 01/03/2017Patient has a history of anxiety that has never been diagnosed, never treated with medication. She denies ever having depression. TKRN Family history of defects 01/03/2017 10/01/2017 Overview: 01/03/2017Patient's sister was stillborn due to anencephaly. FOB's 1st cousin with Down Syndrome.TKRN Patient requested diagnostic testing 01/03/2017 10/01/2017 Overview: 10/09/2018Patient desires nuchal ultrasound . TKRN documented as of this encounter (statuses as of 07/17/2022) [facility] Acute cough- Primary Nasal congestion Other diseases of nasal cavity and sinuses [facility] Strep throat- Primary Streptococcal sore throat [facility] Diagnosis Strep throat- Primary Streptococcal sore throat [facility] Diagnosis Syncope and collapse- Primary [facility] Diagnosis Bacterial sinusitis- Primary Unspecified sinusitis (chronic) [facility] Diagnosis Syncope and collapse- Primary [facility] Diagnosis Viral URI with cough- Primary Acute upper respiratory infections of unspecified site documented in this encounter [facility] for referral (narrative)* Outpatient Procedure (Routine) - Authorized Specialty Diagnoses / Procedures Referred By Contac t Referred To Contact NEUROLOGICAL [place] Diagnoses Syncope and collapse Procedures EPIL EEG ROUTINE ELECTROENCEPHALOGRAM REC COMA/SLEEP ONLY Ned Angel MD [address] [place] [address] Neurological [place] [address] [place] [address] Referral ID Status Reason Start Date Expiration Date Visits Requested Visits Authorized [id number] Authorized Auto-Generat ed Referral 04/25/2022 04/25/2023 [address] [facility] Reason for Referral Specialty Diagnoses / Procedures Referred By Chandler rosado Referred To Contact Ent - Otolaryngology Diagnoses Strep throat Procedures CONSULT TO ENT OFFICE/OUTPATIENT NEW HIGH MDM 60-74 MINUTES Radha Dickinson APRN.CODING FILE CLERK [address] [place] [address] Referral ID Status Reason Start Date Expiration Date Visits Requested Visits Authorized [id number] Authorized PCP Requested Referral 02/23/2022 02/23/2023 1 1 Summary Purpose Family History No Family History Records FoundNo Family History Records FoundNo Family History Records Found Advance Directives No Advanced Directives Records FoundNo Advanced Directives Records FoundNo Advanced Directives Records Found Additional Source Comments Source Comments (unrecognize d section and content) In the event this informatio n is protected by the Federal Confidentiality of Alcohol and Drug Abuse Patient Records regulations: The Federal rules restrict any use of the information to criminally investigate or prosecute any alcohol or drug abuse patient.[facility] event this information is protected by the Federal Confidentiality of Alcohol and Drug Abuse Patient Records regulations: The Federal rules restrict any use of the information to criminally investigate or prosecute any alcohol or drug abuse patient.[facility] the event this information is protected by the Federal Confidentiality of Alcohol and Drug Abuse Patient Records regulations: The Federal rules restrict any use of the information to criminally investigate or prosecute any alcohol or drug abuse patient.[facility] the event this information is protected by the Federal Confidentiality of Alcohol and Drug Abuse Patient Records regulations: The Federal rules restrict any use of the information to criminally investigate or prosecute any alcohol or drug abuse patient.[facility] the event this information is protected by the Federal Confidentiality of Alcohol and Drug Abuse Patient Records regulations: The Federal rules restrict any use of the information to criminally investigate or prosecute any alcohol or drug abuse patient.[facility] the event this information is protected by the Federal Confidentiality of Alcohol and Drug Abuse Patient Records regulations: The Federal rules restrict any use of the information to criminally investigate or prosecute any alcohol or drug abuse patient.[facility] the event this information is protected by the Federal Confidentiality of Alcohol and Drug Abuse Patient Records regulations: The Federal rules restrict any use of the information to criminally investigate or prosecute any alcohol or drug abuse patient.[facility] the event this information is protected by the Federal Confidentiality of Alcohol and Drug Abuse Patient Records regulations: The Federal rules restrict any use of the information to criminally investigate or prosecute any alcohol or drug abuse patient.[facility] the event this information is protected by the Federal Confidentiality of Alcohol and Drug Abuse Patient Records regulations: The Federal rules restrict any use of the information to criminally investigate or prosecute any alcohol or drug abuse patient.[facility] the event this information is protected by the Federal Confidentiality of Alcohol and Drug Abuse Patient Records regulations: The Federal rules restrict any use of the information to criminally investigate or prosecute any alcohol or drug abuse patient.[facility] the event this information is protected by the Federal Confidentiality of Alcohol and Drug Abuse Patient Records regulations: The Federal rules restrict any use of the information to criminally investigate or prosecute any alcohol or drug abuse patient.[facility] the event this information is protected by the Federal Confidentiality of Alcohol and Drug Abuse Patient Records regulations: The Federal rules restrict any use of the information to criminally investigate or prosecute any alcohol or drug abuse patient.[facility] the event this information is protected by the Federal Confidentiality of Alcohol and Drug Abuse Patient Records regulations: The Federal rules restrict any use of the information to criminally investigate or prosecute any alcohol or drug abuse patient.[facility] Reason for Visit (unrecogniz ed section and content) Reason Comments Sore Throat Since 02/02 Reason Comments New Patient Reason Onset Date Comments Results 05/10/2022 Reason Comments Forms [place] Reason Comments Other Follow up Reason Comments Other [place] Return To W ork Form - Status Reason Comments Other Reason Comments Viral Syndrome Cough and congestion , started couple weeks ago. Reason Comments Follow Up Reason Comments General Paperwork Reason Comments Cough INFORMATION SOURCE (unrecogn ized section and content) DATE CREATED AUTHOR AUTHOR'S SAUMYA ATDELORIS 07/03/2022 [facility] DATE CREATED AUTHOR AUTHOR'S SAUMYA ATION 04/25/2023 [facility] FOR RECORDS PERTAINING TO PATIENTS WHO ARE OR HAVE BEEN ENROLLED IN A CHEMICAL DEPENDENCY/SUBSTANCEABUSE PROGRAM, SOME INFORMATION MAY BE OMITTED. This clinical summary was aggregated from multiple sources. Caution should be exercised in using it in the provision of clinical care. This summary normalizes information from multiple sources, and as a consequence, information in this document may materially change the coding, format and clinical context of patient data. In addition, data may be omitted in some cases. CLINICAL DECISIONS SHOULD BE BASED ON THE PRIMARY CLINICAL RECORDS. [facility] [employer] provides no warranty or guarantee of the accuracy or completeness of information in this document.
[2023-05-10 06:41] LABS: Internal QC Validated? YES +Cl - CLEAR BKGD; Pregnancy, Urine Negative Negative
[2023-05-10] MEDS: Lactated Ringers 1,000 ML 15 ML IV (06:42)
--- NOTE | 2023-05-10 07:30 | BON_PTH ---
PATHOLOGY RESULTS PATIENT: GALO DUMONT LOC: [facility] U#:[id number] AGE/SX: 27/F ROOM: RE05/10/[address]: Dr. 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 MOSES:jaron 05/15/2023 MICROSCOPIC DESCRIPTION Slides are reviewed. GROSS DESCRIPTION Received in fixative is one container labeled with the patient's name and designated left calcaneo-navicular coalition. The specimen consists of multiple pieces of bone measuring in aggregate 2.0 x 2.0 x 1.0 cm. The entire specimen is submitted in two cassettes after decalcification. / MOSES:jaron 05/10/2023 TC:5 CPT: 16205, 22600
[2023-05-10] MEDS: Cefazolin 2 GM in 0.9% Normal Saline (100mL Bag) 100 ML IV (07:43)
--- NOTE | 2023-05-10 07:55 | RAD_ITS ---
XR Ankle More than 2 Views LEFT INDICATION:27 years old Female presenting with PAIN. TECHNIQUE: Fluoroscopic images are submitted from a procedure. 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 Documentation purposes only. No radiologist was present for this procedure. Please see procedure note for further details. Electronically Signed: Abdirizak Chambers MD at 1:09 EST , RAD/Ankle 2 Views IMPRESSION: undefined
[2023-05-10] MEDS: Bupivacaine Mpf 0.5% 30 ML VIAL (10:04)
--- NOTE | 2023-05-10 10:48 | PCM.OPRPT ---
Problems Associated Problem List Diagnoses (1) Cavus deformity of left foot: (2) Tarsal coalition of left foot: (3) Pain in left foot: (4) Left ankle instability: (5) Short Achilles tendon (acquired), left ankle: Report of Operation Date of Procedure: 05/10/23 Pre-Operative Diagnosis: 1) Left gastrocnemius equinus 2) Left Cavus foot type 3) Left (fibrous) calcaneonavicular coalition 4) Left lateral ankle instability 5) Left foot and ankle pain Post-Operative Diagnosis: Same Surgery/Procedure Performed:: 1. Endoscopic gastrocnemius recession left 2. Lateralizing calcaneal slide osteotomy left 3. Calcaneonavicular coalition resection, left 4. Lateral ankle stabilization, left 5. Application of short leg splint, left Description of Surgical Findings:: Patient has cavus foot type secondary to calcaneonavicular coalition from . Patient suffered from frequent ankle sprains and had severe ankle sprain 1 year prior. Since that time patient has recurrent. inversion ankle injuries and diffuse instability the left lateral ankle. Decision made for left cavus foot reconstruction with pair of those lateral ankle ligaments and resection of calcaneonavicular coalition. Surgeon: Reynaldo Boykin special forces engineer sergeant: None (sarika vinson DPM PGYIII) Type of Anesthesia: General Special Medications: 30 cc half percent Marcaine plain Specimen's removed: Calcaneonavicular: Drains: None Estimated Blood Loss (mL): Minimal Description of Procedure: Patient brought back the operating placed comfortably supine position. Patient used under general anesthesia. All osseous prominences were offloaded prevent any compression neuropraxia. Well-padded left thigh tourniquet was applied. Left lower extremity was positioned using blankets and a hip bump was placed to knock out external rotation. Left lower extremity was then scrubbed prepped and draped using typical aseptic fashion. Once cleared by anesthesia left lower extremity was elevated tourniquet was inflated to 300 mmHg. Left ankle block in a ring fashion was performed using half percent Marcaine plain 20 cc. Local infiltration block was performed to the gastrocnemius recession site proximally with 10 cc half percent Marcaine plain Procedure #1: Left endoscopic rest gastrocnemius recession: The gastroc anemias muscle head was identified and a lateral incision was made just 1 cm distal to the muscle belly musculo aponeurosis junction. This incision was deepened with hemostats and the deep fascia and gastrocnemius aponeurosis were palpated using a [place] and this fascial plane was dissected from lateral to medial using a [place] and then a trocar and obturator and cannula were inserted from lateral to medial just superficial to the gastrocnemius aponeurosis a medial incision was made using a #15 blade through a stab incision. Fluoroscope was applied medially into the site and the gastrocnemius aponeurosis could be visualized care was taken to avoid injury to this sterile nerve which was noted to be identified more superficial in the subcutaneous fat using a triangle blade the gastrocnemius first session was performed from medial to lateral and approximately 3 degrees of dorsiflexion range of motion was noted to be improved endoscopic visualization demonstrated adequate resection of the gastrocnemius aponeurosis. Procedure #2 lateral calcaneal slide osteotomy: An incision was marked out using fluoroscopic guidance running from a proximal posterior to distal inferior/anterior position to the lateral aspect the calcaneus distal to the course of the sural nerve this and incision was made with 15 blade through epidermis dermis into subcutaneous tissue blunt dissection was taken down the level calcaneus periosteal dissection was performed with a larry periosteal elevator a osteotomy was then performed from lateral to medial using a large hip saw and this was translated laterally approximately 5 mm and pinned in a corrected position for scopic imaging current demonstrated reduction of varus deformity of the hindfoot using calcaneal imaging as well as adequate position of the guide pins. 280 headless compression screws were placed across the osteotomy site unit using manufactures guidelines. Percutaneous pins were then removed. Fluoroscopic imaging including lateral mortise and calcaneal axial were performed and noted adequate reduction of the hindfoot varus deformity with lateral calcaneal slide. Procedure #3 lateral ankle stabilization: a sinus tarsi type incision was drawn and marked extending from the distal tip of the fibula to the calcaneal navicular joint this was made through the epidermis dermis into subcutaneous tissue with a #15 blade any bleeders identified cauterized. Neurovascular structures identified and protected with blunt retraction deep dissection was taken down to level of deep fascia just anterior distal to the fibula a full-thickness periosteal cuff along with the extensor retinaculum ATFL ligament was made down to level of the ankle joint this dissected off the distal anterior fibula 2-9 knotless anchors were placed in the distal fibula approximately 1.5 cm apart a pants over vest closure was performed including of the ATFL and the inferior extensor retinaculum with the foot held in a dorsiflexed and either reverted position these were repaired primarily using a knotless technique. Prior to repair a inversion testing was performed and ankle was noted demonstrate greater than 5 degrees of varus tilting of the talus. Prior after repair varus stressing yielded no talar tilting. This was confirmed with fluoroscopic stress views. Procedure #4 calcaneonavicular coalition resection: The extensor digitorum brevis was atraumatically dissected off of the calcaneonavicular coalition which was then identified this was excised using combination of osteotomes and bone rongeurs passed back table for to be sent to pathology for further examination. Site was then flushed with copious amounts normal sterile saline to all incisional sites site was then dressed with approximately cc of injectable [employer] amniotic graft. The extensor digitorum brevis was then imbricated within the defect where the calcaneal navicular coalition was performed using 2-0 Vicryl. Deep and subcutaneous closure was performed to all incisional sites using 2-0 Vicryl in a simple interrupted buried technique. All incisional sites were then closed with horizontal mattress sutures to the sinus tarsi incision simple interrupted to the calcaneal osteotomy incision and over and over stitches to the posterior calcaneal screw incisional sites as well as the proximal endoscopic incisional sites closed with horizontal mattress all using 3-0 nylon. Tourniquet was let down prior to incisional closure. Total tourniquet time was 107 minutes. Any bleeders were identified and cauterized prior to incisional closure. Procedure #5 application of splint to left lower extremity: All incisional sites were cleansed and then dressed with Betadine Adaptic 4 x 4's Kerlix 2 layers of specialist cast padding padding two 4 inch Jim wrap to wrap from the base of the noted tarsal heads to the widest portion of the calf from distal to proximal. 2 additional layers of specialist cast flattening were applied then an AO splint was performed using 3 layers of 5 x 30 plaster splint in a U technique followed by a sugar-tong technique with a second application of 3 layers of 5 x 30 splint followed by a double 6 inch Jim over top with the foot held in a dorsiflexed and everted position. Patient was transferred to PACU vital signs stable and vascular status intact all digits for further monitoring prior to discharge. Patient tolerated procedure and anesthesia well apparent satisfactory condition patient will receive popliteal block and PACU. Grafts/Implants Used: 2 [place] headless screws, 2 [place] 2.9 knotless anchors Admit VTE Documentation VTE Present on Admission: Yes VTE Mechan Device Prophylaxis: SCD's VTE Pharm Prophylaxis ordered?: Yes
== END 2023-05-10 13:20 | disposition home or self-care (01) ==
LOC: SDC 06:00 → AC 06:01
PROVIDERS: Anesthesiology; PCP Nurse Practitioner Family; Referring Provider Podiatrist; Visit Provider Podiatrist
PROC: (CPT 28300; principal; 2023-05-10 07:15)
DX: Q66.72 Congenital pes cavus, left foot (principal); Q66.89 Other specified congenital deformities of feet; M67.02 Short Achilles tendon (acquired), left ankle; M25.372 Other instability, left ankle; M62.462 Contracture of muscle, left lower leg; X58.XXXA Exposure to other specified factors, initial encounter; F32.A Depression, unspecified; F41.9 Anxiety disorder, unspecified; Z79.899 Other long term (current) drug therapy
CPT/HCPCS: 28300; 29999; 28116; 27698; 01480; 73600; 76000; 81025; 88304; 88311; C1713; J7120; J2405

== ENCOUNTER 2023-08-13 12:00 | Outpatient (RCR) | payer BC, SELFPAY ==
--- NOTE | 2023-06-14 15:02 | HP.PTEVAL_ITS ---
Patient's Visit Information Visit Information Visit Information: GALO DUMONT is a 27 year old F referred to Physical Therapy by Dr. Reynaldo Boykin DPM with a diagnosis of INSTABILITY LEFT ANKLE. Date of Evaluation: 06/14/23 Physical Therapist: Charlie Parks PT, Cert MDT, OCS Visit Plan Frequency: 2-3x /Week Duration: 8-12WEEKS Plan: S/P ANKLE SURGERY 05/10/22 WBAT WITH CAM BOOT OKAY TO TRANSITION FROM BOOT TO SHOE (SLOW PROGRESSION) PT INTERVENTIONS INITIALLY ROM ANKLE ,FLEXABILITY CALF ,PROGRESS TO STRENGTHENING ANKLE STABILIZERS/INSTRINCS FOOT ,PROGRESS TO WB TO SHOE RICHARD ,POPRIOCEPTION ,GAIT TRAINING AND MODALTIES ( VAS0 NEEDED) Subjective Subjective: This 27 y/o female presents to physical therapy with instability left ankle. Patient underwent s/p Endoscopic gastrocnemius recession left Lateralizing calcaneal slide osteotomy left Calcaneonavicular coalition resection, left . Lateral ankle stabilization, left . Application of short leg splint on 05/10/[address] [facility] by Dr Boykin. Patient was d/c from hospital with NWB LLE SPLINT using kneeling walker and crutches . Patient transferred to Cam BOOT 3week. Then patient seen Dr Saturday okay with WBAT with Cam Boot and okay to transition from shoe per order. Patient had instability of multiple twisting ankle over the years. Patient had MRI prior PT . Patient has pain. Patient has paresthesia lateral foot. Pain doesn't affects sleeping. Patient has difficulty with ADLS and stairs ,unable to RTW affects housework tasks. Patient condition affects QOL and function and walking, Patient goals to return to prior level and work. 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[place] Pain Left Ankle: Pain Intensity (Out of 10): 6 Pain Intensity Range: 10 Comment: walking Objective Objective: POSTURE: pes cavus ,Cam Boot on INCISION: well approximate ,bandage posterior ankle GAIT: ambulates with cam boot WBAT NEURO: denies paresthesia/tingling EDEMA: trimalleolar joint line 54.8 cm AROM: dorsiflexion 0 degrees ,plantar flexion 60 degrees ,inversion 10 degrees ,eversion 5 degrees MMT: ( peak force) peroneus 4.5 ,posterior tibialis 5.6 ,G-S 9.8 ,anterior tibialis 10.1 G-S: tight mod STAIRS : one step at time with rail Balance/Special Test Scores Lower Extremity Functional Score: 18 Goals Goal 1:: I with [facility] for ankle rehab Goal Time Frame: 8-12 Weeks Goal 2:: Patient to ambulate with no device with reciprocal normal gait pattern Goal Time Frame: 8-12 Weeks Goal 3:: Patient to improve ankle AROM ankle by 5-10 degrees to improve gait Goal Time Frame: 8-12 Weeks Goal 4:: Patient to improve peak force ankle stabilizers by 15-10# to improve function and gait Goal Time Frame: 8-12 Weeks Goal 5:: Patient to improve LFES score by 15-20 points to improve QOL and function Goal Time Frame: 8-12 Weeks Goal 6:: Patient to demonstrate 75 % improvement to RTW and ADLS' Goal Time Frame: 8-12 Weeks Rehabilitation Potential Physical Therapy Diagnosis: This patient underwent s/p left ankle Endoscopic gastrocnemius recession left Lateralizing calcaneal slide osteotomy left Calcaneonavicular coalition resection, left . Lateral ankle stabilization, left with decrease ankle ROM ,decrease strength ,decrease gait ,proprioperception thus benefit from skilled PT Rehabilitation Potential: Good Anticipated Interventions Patient/Client Instruction: Educate patient on: Condition and Plan of Care For the Purpose of:: To decrease pain, To increase ROM, To improve muscle performance and motor function, To improve ability to perform ADL's, To increase tolerance to activity/condition/position, To improve ability of physical actions for home/community/work/leisure, To improve gait and locomotor functions, To decrease soft tissue restriction, To increase flexibility/ROM, To improve endurance and To improve balance Therapeutic Exercise to Include: Strength training, Endurance training, Balance training, Postural training, Flexibilty training, Gait and locomotor training, Passive ROM and Active ROM Comment: RIGHT ANKLE /INSTRINCS For the Purpose of:: To decrease pain, To decrease swelling/inflammation, To increase ROM, To improve nutrient delivery to tissue, To increase oxygenation perfusion, To improve muscle performance and motor function, To improve ability to perform ADL's, To increase tolerance to activity/condition/position, To improve ability of physical actions for home/community/work/leisure, To improve gait and locomotor functions, To improve health of tissue, To decrease soft tissue restriction, To increase flexibility/ROM, To improve endurance, To improve balance and To improve tolerance to ADL's TENS: Yes IF ES: Yes Cryotherapy (ice pack, ice massage): Yes Thermo therapy (hot pack): Yes Ultrasound (thermal/non thermal): Yes Vasopneumatic device: Yes For the Purpose of:: To decrease pain, To decrease swelling/inflammation, To increase ROM, To improve nutrient delivery to tissue, To increase oxygenation perfusion, To improve health of tissue and To decrease soft tissue restriction Text: Thank you for the opportunity to evaluate your patient. For Medicare and Medicare HMO plans, please review the plan of care and approve it. It will need to be FAXED BACK to us at [phone] for Medicare purposes. For Medicare only, by signing this I certify the plan of care. Please let me know if there are questions or concerns regarding this plan of care. Physician Signature: Date:
--- NOTE | 2023-10-21 12:58 | HP.PTDCSUM_ITS ---
Discharge Summary D/C summary: It has been my pleasure to treat GALO DUMONT referred by Dr. Reynaldo Boykin, DPM, with the diagnosis of INSTABILITY LEFT ANKLE for a total of 15 visit(s). Discharge Date: Please see the following information for a summary of their discharge status. Subjective Subjective: Plan to see DR Woods Walking long distances , and standing at working . Walking better but with a limp and some more edema RTW 2 weeks Pain Left Ankle: Pain Intensity (Out of 10): 0 Overall Improvement % Improvement: 65 Objective Objective/Function: POSTURE: pes cavus INCISION: well approximate GAIT: ambulates with reciprocal pattern NEURO: denies paresthesia/tingling EDEMA: trimalleolar joint line 53.0 cm AROM: dorsiflexion 7 degrees ,plantar flexion 70 degrees ,inversion 45 degrees ,eversion 15 degrees MMT: ( peak force) peroneus 23.2 ,posterior tibialis 22.6 ,G-S 51,9 ,anterior tibialis 27.8 G-S: WfL Goals Goal 1:: I with [facility] for ankle rehab Goal Progress: Progressing Goal 2:: Patient to ambulate with no device with reciprocal normal gait pattern Goal Progress: Progressing Goal 3:: Patient to improve ankle AROM ankle by 5-10 degrees to improve gait( new goal) Goal Progress: Progressing Goal 4:: Patient to improve peak force ankle stabilizers by 15-10# to improve function and gait( new goal) Goal Progress: Progressing Goal 5:: Patient to improve LFES score by 15-20 points to improve QOL and function Goal Progress: Progressing Goal 6:: Patient to demonstrate 75 % improvement to RTW and ADLS' Goal Progress: Progressing Plan Plan: d/c S/P ANKLE SURGERY 05/10/22. WBAT PT INTERVENTIONS INITIALLY ROM ANKLE ,FLEXABILITY CALF ,PROGRESS TO STRENGTHENING ANKLE STABILIZERS/INSTRINCS FOOT ,PROGRESS TO WB TO SHOE RICHARD ,POPRIOCEPTION ,GAIT TRAINING AND MODALTIES (VAS0 NEEDED D/C Information d/c sentence: If there are questions or concerns regarding this patient's physical therapy, please feel free to call me at [phone]. Thank you for the referral of this patient. Sincerely, Charlie Parks, PT, Cert MDT, OCS Balance/Gait/Functional tests Balance/Special Test Scores Lower Extremity Functional Score: 18 Improvement % Improvement: 65
== END 2023-08-13 19:00 | disposition home or self-care (01) ==
LOC: PT 12:00
PROVIDERS: PCP Nurse Practitioner Family; Referring Provider Podiatrist; Visit Provider Podiatrist
DX: M25.372 Other instability, left ankle (principal)
CPT/HCPCS: 97110; 97162; 97530